=== PATIENT | female | born 1940 | race Caucasian/White ===

== ENCOUNTER → 2016-07-16 | Outpatient (CLI) | payer BC ==
[~2016-07-16] MED LIST: ACET325T95 PO; AMOX1TAB43 PO; CALC-354 PO; CLC100 PO; LUTE40CA2 PO; MELO7.5T5 PO; MULT-845 PO; POLYSOL4 OP; ULT50X PO
== END | disposition home or self-care (01) ==
LOC: C.RDSM 15:16
PROVIDERS: ATTEND Physical Medicine & Rehabilitation Sports Medicine
DX: M75.122 Complete rotator cuff tear or rupture of left shoulder, not specified as traumatic (principal); Z98.890 Other specified postprocedural states

== ENCOUNTER → 2016-10-01 | Outpatient (CLI) | payer BC | END | disposition home or self-care (01) | LOC: C.RDSM 10:30 | PROVIDERS: ATTEND Physical Medicine & Rehabilitation Sports Medicine | DX: M75.122 Complete rotator cuff tear or rupture of left shoulder, not specified as traumatic (principal); M75.41 Impingement syndrome of right shoulder; Z98.890 Other specified postprocedural states ==

== ENCOUNTER → 2016-10-23 | Outpatient (CLI) | payer BC ==
[2016-10-23 14:40] LABS: HEMATOCRIT 39.2 % (37-47); MEAN CELL VOLUME 88.3 fL (80-100); MEAN CORPUSCULAR HEMOGLOBIN 29.7 pg (25-34); MEAN CORPUSCULAR HGB CONC 33.7 g/dl (32-36); MEAN PLATELET VOLUME 8.8 fL (7.4-10.4); PLATELET COUNT 306 K/uL (130-400); RED BLOOD COUNT 4.44 M/uL (4.2-5.4); WHITE BLOOD COUNT 9.27 K/uL (4.8-10.8)
[2016-10-23 15:33] LABS: BASO % 1.3 %; BASO ABS # 0.12 K/uL (0-0.2); COMPLETE YES; ECHINOCYTES 1+; IG% 0.2 %; LYMPH % 35.9 %; LYMPH ABS # 3.33 K/uL (1.2-3.4); MONO % 9.3 %; NEUT % 50.3 %
[2016-10-23 15:55] LABS: BLOOD UREA NITROGEN 22 mg/dl (7-18); CALCIUM 8.7 mg/dl (8.5-10.1); CARBON DIOXIDE 25 mmol/L (21-32); CHLORIDE 108 mmol/L (98-107); CREATININE 0.73 mg/dl (0.60-1.20); GLUCOSE 92 mg/dl (70-99); POTASSIUM 3.6 mmol/L (3.5-5.1); SODIUM 141 mmol/L (136-145)
== END | disposition home or self-care (01) ==
LOC: C.LAB1850 14:00
PROVIDERS: ATTEND Internal Medicine
DX: R91.1 Solitary pulmonary nodule (principal)

== ENCOUNTER → 2016-10-30 | Outpatient (CLI) | payer BC ==
[~2016-10-30] MED LIST changes: +OPTIRAY 320 IV PRN
--- NOTE | 2016-10-30 13:55 | DIAGNOSTIC IMAGING REPORT ---
CT SCAN OF THE CHEST WITH IV CONTRAST CLINICAL HISTORY: Pulmonary nodule follow-up. COMPARISON STUDY: Chest CT scans dated 03/05/2016 and 11/18/2015. TECHNIQUE: Following the IV administration of 94 cc of Optiray 320, CT scan of the thorax was performed from the thoracic inlet to the upper abdomen. Images are reviewed in the axial, sagittal, and coronal planes. IV contrast was administered without complication. The examination is degraded by streak artifact from the left arm which could not be elevated above the chest. CT DOSE: 192.65 mGy.cm FINDINGS: Thyroid: Imaged portions of the thyroid gland are normal in size and attenuation. Thoracic aorta: There is atherosclerotic calcification of the thoracic aorta, which is normal in caliber and demonstrates standard 3-vessel arch anatomy. No dissection is seen. Pulmonary vasculature: The pulmonary trunk is normal in caliber. There are no filling defects identified in the central pulmonary vessels to indicate pulmonary embolus. Note that this examination was not protocoled for evaluation of the pulmonary arteries. Heart: The heart is mildly enlarged and without pericardial effusion. There are coronary artery calcifications. Lungs and pleural spaces: Emphysematous changes are noted. There is no lobar consolidation or pleural effusion. A fat-containing Bochdalek hernia is seen at the right lung base. The trachea and central airways are clear. There is a 10 mm subpleural groundglass lesion in the anterior left upper lobe seen on image #136. A small groundglass lesion in the left upper lobe as seen on image #124 and measures at least 5 mm. Both of these lesions have been present dating back to the 11/18/2015 examination and are highly concerning for low-grade neoplasm. A 2 mm groundglass nodule in the left upper lobe as seen on image #135. There are linear branching densities with surrounding nodularity seen in the right middle lobe seen on image #151 and at the right lung base on image #180. Additionally, there are tiny clustered nodules at the right apex seen on image #52. This is new from prior studies and the appearance is typical for infectious/inflammatory change. Mediastinum: There is no mediastinal lymphadenopathy. Mary Anne: Clear. Axillae: There is no axillary lymphadenopathy. Upper abdomen: Subcentimeter cortical hypodensities in the upper poles of both kidneys likely represent cysts but are too small for definitive characterization. Partially visualized upper abdominal viscera is otherwise within normal limits. Skeletal structures: The skeletal structures are osteopenic. Fusion hardware is noted in the lower cervical spine. Mild degenerative change and scoliosis is noted in the thoracic spine. No lytic or blastic bony lesions are seen. Arthritic changes present in both shoulders. There are healed right posterior rib fractures. IMPRESSION: 1. Mild cardiac enlargement and emphysema. 2. There are 2 groundglass lesions in the left upper lobe measuring up to 11 mm as detailed above. These are unchanged to minimally increased in size over studies dating back to 11/18/2015 and should be considered low-grade neoplasm until proven otherwise. Surgical consultation is advised. 3. Linear branching densities with mild surrounding nodularity are seen in the right middle lobe and in the right lower lobe, and there are also small clustered nodules at the right apex. This is new from prior studies, the appearance is typical for a mild infectious/inflammatory pneumonitis. Attention at follow-up is recommended to document resolution. 4. There is no lobar consolidation or pleural effusion. 5. There is no mediastinal or hilar lymphadenopathy. 6. Additional changes as above. Electronically signed by: Dale Washington M.D. 10/30/2016 1:53 PM Dictated Date/Time: 10/30/2016 1:37 PM
== END | disposition home or self-care (01) ==
LOC: C.CTS 13:19
PROVIDERS: ATTEND Internal Medicine
DX: R91.1 Solitary pulmonary nodule (principal); I51.7 Cardiomegaly; J43.9 Emphysema, unspecified; R91.8 Other nonspecific abnormal finding of lung field

== ENCOUNTER → 2016-11-19 | Outpatient (CLI) | payer BC ==
[~2016-11-19] MED LIST changes: -OPTIRAY 320 IV PRN
--- NOTE | 2016-11-19 11:56 | DIAGNOSTIC IMAGING REPORT ---
PET/CT HISTORY: PULMONARY NODULE TECHNIQUE: PET/CT was performed from the base of the skull through the pelvis following the intravenous administration of 14.1 mCi of F18-FDG. Non-contrast CT imaging was performed over the same range without breath-hold for attenuation correction of PET images and anatomic correlation, but not for primary interpretation as it is not of standard diagnostic quality. CT DOSE: 291.05 mGycm COMPARISON: Chest CT 10/30/2016. Cervical spine CT 04/14/2014. FINDINGS: HEAD AND NECK: There is no FDG-avid disease or significant lymphadenopathy in the imaged portions of the head and the neck. CHEST: No enlarged or FDG avid mediastinal or hilar lymph nodes. No pleural or pericardial effusions. Old right-sided rib fractures. Mild elevation of the left hemidiaphragm. Linear scarlike density at the base of the right lower lobe persists. Small branching density seen within the right lower lobe and right middle lobe do not demonstrate abnormal FDG uptake. The dominant 1 cm groundglass nodule within the left upper lobe anteriorly and the adjacent 5 mm groundglass nodule within the left upper lobe do not demonstrate abnormal FDG uptake. There is a possible 6 mm groundglass nodule within the right upper lobe on image 56 which does not demonstrate abnormal FDG uptake. ABDOMEN/PELVIS: Suboptimal evaluation of the mid abdominal and deep pelvic structures due to the metallic artifact from the lumbar spinal fusion, left hip prosthesis, and internal fixation of the right hip. No retroperitoneal or mesenteric lymphadenopathy. No pelvic lymphadenopathy. Small partially calcified fibroid within the uterus. There is 1.5 cm low density structure adjacent to the left hepatic lobe and falciform ligament which demonstrates mild FDG uptake with an SUV max of 3.4. This is stable compared to December 04, [address] There is a tiny fat-containing midline hernia adjacent to this area. MUSCULOSKELETAL: No FDG avid or destructive bone lesion identified. 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 This remains unchanged. Focus of mild FDG uptake adjacent to the lateral aspect of the left humeral head. This may correspond to rotator cuff injury or postoperative changes when compared to the prior studies. Old right pubic ring fractures. IMPRESSION: 1. No abnormal FDG uptake identified within the adjacent groundglass left upper lobe pulmonary nodules with the largest measuring 1 cm. Regardless, the CT imaging appearance alone of the dominant 1 cm lesion is highly suspicious for a primary bronchogenic malignancy such as adenocarcinoma in situ. The adjacent 5 mm groundglass nodule is indeterminate but could also represent a small adenocarcinoma in situ. 2. There is also a possible 6 mm indeterminate groundglass nodule within the right upper lobe which does not demonstrate abnormal FDG uptake. This may also represent a small adenocarcinoma in situ. 3. Small branching densities within the right middle lobe and right lower lobe remain unchanged. These do not demonstrate abnormal FDG uptake but likely represent small areas of chronic inflammatory/infectious change. 4. A 1.5 cm low-density lesion anterior to the left hepatic lobe and deep to a small fat-containing midline ventral hernia. This demonstrates mild FDG uptake. This is not significantly change compared to the 2016 chest [address]s and therefore favors a small omental infarct. 5. Focal FDG uptake lateral to the left humeral head which favors rotator cuff injury or postoperative change. 6. 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 Electronically signed by: Mario Gracia M.D. 11/19/2016 11:54 AM Dictated Date/Time: 11/19/2016 11:25 AM
== END | disposition home or self-care (01) ==
LOC: C.PET 08:17
PROVIDERS: ATTEND Surgery
DX: R91.8 Other nonspecific abnormal finding of lung field (principal); K43.9 Ventral hernia without obstruction or gangrene; R93.5 Abnormal findings on diagnostic imaging of other abdominal regions, including retroperitoneum; R93.7 Abnormal findings on diagnostic imaging of other parts of musculoskeletal system

== ENCOUNTER 2016-12-19 05:13 | Inpatient (IN) | payer BC, OTHER ==
[~2016-12-19] VITALS: Ht 165.1 cm; Wt 56.4 kg
[2016-12-19] VITALS (10 sets, daily range): BP systolic 126–166; BP diastolic 71–84; PULSE 66–100; TEMP 34.7–36.8; O2SAT 95–100; Ht 165.1 cm; Wt 56.4 kg
[~2016-12-19 05:13] MED LIST changes: -ACET325T95 PO; -AMOX1TAB43 PO; -CLC100 PO; -MULT-845 PO; -ULT50X PO
[2016-12-19] MEDS ORDERED: LACTATED RINGER'S 1000ML 1,000 ML IV SCH (06:00)
[2016-12-19] MEDS ORDERED: METHYLENE BLUE 0.5% 10 ML VIAL ONE (06:49)
[2016-12-19] MEDS ORDERED: FENTANYL CITRATE INJ 50 MCG/1 ML 2 ML VIAL ONE ×2 (06:49→08:25)
[2016-12-19] MEDS ORDERED: MIDAZOLAM HCL 1 MG/ML 2ML VIAL ONE (06:49)
[2016-12-19] MEDS ORDERED: PHENYLEPHRINE HCL INJ 10 MG/ML VIAL ONE (06:53)
[2016-12-19] MEDS ORDERED: PROPOFOL IV EMULSION 10 MG/ML 20 ML VIAL IV ONE (06:53)
[2016-12-19] MEDS ORDERED: GLYCOPYRROLATE INJ 0.2 MG/ML VIAL ONE (06:53)
[2016-12-19] MEDS ORDERED: SUCCINYLCHOLINE CHLORIDE 20 MG/ML 10 ML VIAL IV ONE (06:53)
[2016-12-19] MEDS ORDERED: LIDOCAINE HCL 2% 2 ML VIAL (20MG/ML) ONE (06:53)
[2016-12-19] MEDS ORDERED: LARYING-O-JET KIT (LTA) ONE ×2 (06:53)
[2016-12-19] MEDS ORDERED: CISATRACURIUM BESYLATE IV SOLN 2 MG/ML 10 ML VIAL ONE (06:53)
[2016-12-19] MEDS ORDERED: NEOSTIGMINE METHYLSULFATE 5 MG/5 ML SYR ONE (06:53)
--- NOTE | 2016-12-19 06:53 | History & Physical Bridge Note ---
H&P Re-Evaluation Bridge Note: I have examined the patient, reviewed the History & Physical and in the interval since the performance of the History & Physical I have noted the following changes of clinical significance: No changes noted
[2016-12-19] MEDS ORDERED: BUPIVACAINE LIPOSOME 1/3% 266 MG/20 ML VIAL INFIL ONE (07:06)
[2016-12-19] MEDS ORDERED: SODIUM CHLORIDE 0.9% PF 50 ML VIAL ONE (07:06)
[2016-12-19] MEDS ORDERED: CLINDAMYCIN PHOS 150 MG/ML 2 ML VIAL ONE (07:38)
[2016-12-19] MEDS ORDERED: EpHEDrine SULFATE 50MG/5ML SYR ONE (07:44)
--- NOTE | 2016-12-19 08:53 | DIAGNOSTIC IMAGING REPORT ---
CHEST 1 VIEW FRONTAL CLINICAL HISTORY: Navigational bronch with fiducial markers COMPARISON STUDY: Head CT 11/19/2016. FINDINGS: Total fluoroscopy time was 1 minute and 9 seconds. 2 fluoroscopic spot images of the chest were submitted. A bronchoscope is seen within the left mainstem bronchus. There is placement of a metallic fiducial marker. IMPRESSION: Fluoroscopy provided for navigational bronchoscopy. Electronically signed by: Mario Gracia M.D. 12/19/2016 8:51 AM Dictated Date/Time: 12/19/2016 8:50 AM
[2016-12-19] MEDS ORDERED: D5W AND 1/2NSS 1,000 ML IV SCH (10:35)
[2016-12-19] MEDS ORDERED: KETOROLAC TROMETHAMINE 15 MG/ML VIAL IV. SCH (10:45)
[2016-12-19] MEDS ORDERED: CLINDAMYCIN IV 900 MG in DEXTROSE 5% ADD-VANTAGE 100ML 100 ML IV SCH (10:45)
[2016-12-19] MEDS ORDERED: ONDANSETRON INJ 2 MG/ML 2 ML VIAL IV PRN ×3 (10:45→16:00)
[2016-12-19] MEDS ORDERED: NALOXONE HCL 0.4 MG/1 ML VIAL/CARP IV PRN (11:15)
[2016-12-19] MEDS ORDERED: FLUMAZENIL 0.1 MG/1 ML 10 ML VIAL IV PRN (11:15)
[2016-12-19] MEDS ORDERED: LABETALOL HCL IV 5 MG/ML 20ML IV PRN (11:15)
[2016-12-19] MEDS ORDERED: EpHEDrine SULFATE INJ 50 MG/ML AMP IV PRN (11:15)
[2016-12-19] MEDS ORDERED: ATROPINE SULFATE 0.1 MG/ML 5ML SYR IV PRN (11:15)
[2016-12-19] MEDS ORDERED: PROMETHAZINE HCL INJ 12.5 MG in SODIUM CHLORIDE 0.9% 50ML 50 ML IV PRN (11:15)
[2016-12-19] MEDS ORDERED: PIPERACILL/TAZOBAC CONSULT ACTIVE PRN (11:45)
--- NOTE | 2016-12-19 11:53 | DIAGNOSTIC IMAGING REPORT ---
CHEST ONE VIEW PORTABLE CLINICAL HISTORY: Postop left upper lobe pulmonary resection COMPARISON STUDY: 05/22/2016 FINDINGS: Postsurgical changes are present on the left. There is left-sided volume loss. There is elevation left hemidiaphragm. There is a left-sided chest tube. There is a tiny loculated left upper medial pneumothorax. There is no lobar consolidation. Increased left basal markings are felt to be atelectatic[ IMPRESSION: Postsurgical changes on the left. Suspected small loculated left upper medial pneumothorax. Left basilar atelectasis. Electronically signed by: Fer Fay M.D. 12/19/2016 11:51 AM Dictated Date/Time: 12/19/2016 11:50 AM
--- NOTE | 2016-12-19 12:08 | Anesthesiology Progress Note ---
Anesthesia Post Op Note Date & Time Dec 19, 2016 at 12:08 Vital Signs Pain Intensity: 0 Vital Signs Past 12 Hours Date Time Temp Pulse Resp B/P (MAP) Pulse Ox O2 Delivery O2 Flow Rate FiO2 12/19/16 12:05 77 16 152/64 100 Mask 3 12/19/16 12:00 68 16 142/71 100 Mask 3 12/19/16 11:50 74 16 153/70 100 Mask 3 12/19/16 11:40 36.4 79 16 159/72 100 Mask 5 12/19/16 11:30 79 16 145/78 100 Mask 5 12/19/16 11:20 81 16 157/62 100 Mask 5 12/19/16 11:10 72 16 150/65 100 Mask 10 12/19/16 11:00 75 16 148/75 100 Mask 10 12/19/16 10:53 36.5 74 14 158/75 100 Mask 10 12/19/16 05:40 36.5 66 18 149/78 95 Room Air Notes Mental Status: alert / awake / arousable, participated in evaluation Pt Amnestic to Procedure: Yes Nausea / Vomiting: adequately controlled Pain: adequately controlled Airway Patency, RR, SpO2: stable & adequate BP & HR: stable & adequate Hydration State: stable & adequate Anesthetic Complications: no major complications apparent
[2016-12-19] MEDS ORDERED: PIPERACILL/TAZOBAC IV 3.375 GM in DEXTROSE 5% 100ML IV ONE ×2 (12:30→14:00)
--- NOTE | 2016-12-19 12:34 | OPERATIVE REPORT ---
DATE OF OPERATION: 12/19/2016 PREOPERATIVE DIAGNOSIS: Ground-glass opacity left upper lobe of lung. POSTOPERATIVE DIAGNOSIS: Same. PROCEDURES: 1. Navigational bronchoscopy with marking of left upper lobe lesion using methylene blue and fiducial marker. 2. Left thoracoscopy with wedge resection under fluoroscopic guidance. 3. Thoracoscopic left upper lobectomy with lymph node dissection. SURGEON: Dr. Hernandez. BUSINESS SYSTEMS TECHNICIAN: Jacob Hua PA-C ANESTHESIA: General anesthesia endotracheal intubation with double lumen tube. SPECIFICS OF PROCEDURE: Stefanie Sands is a 76-year-old ex-smoker who was found to have ground-glass opacity in the medial left upper lobe. We had a long talk about this and I felt that trying to make a diagnosis, this was not going to be fruitful. Although she is 76 she is in excellent physical condition and quit smoking years ago. She had good lung function. We had a long talk about this and we elected to proceed with a navigational bronchoscopy and marking of this with a wedge resection frozen section, possible lobectomy. On 12/19/2016 I took the patient to the operating room and did an uncomplicated navigational bronchoscopy and I marked this area with methylene blue dye and with a fiducial marker. This was quite close to the pleura. Upon opening I could see there was methylene blue dye; however, it was not in a specific location. It was more or less confined to the medial left upper lobe. Under fluoroscopy, we could see the fiducial marker and upon pulling this up, the fiducial marker was seen on the pleural surface. This area was grasped and a generous wedge resection was made. The fiducial marker was actually removed at the time of the biopsy as it was on the surface. Dr. Emiliano Fox did a frozen section on this wedge and really did not see a mass which is not surprising given the ground-glass opacity. I had a decision to make. Her anatomy lent itself well to a lobectomy and I was not comfortable that we were going to get a diagnosis on frozen section. For this reason, I went ahead and did a left upper lobectomy. It should be noted I did a generous wedge resection and removed a good portion of her left upper lobe before the lobectomy. We lost very little blood. I biopsied level 10, 11, 12 and 5. I really did not see a level 6 node. I took down the inferior pulmonary ligament and really did not see much in the way of a level 8 or level 9 node. She tolerated it well, had no air leak at the conclusion of the case. She was extubated in the room. DESCRIPTION OF PROCEDURE: The patient brought to the operating room and laid in supine position. General anesthesia induced and endotracheal intubation was performed with a single lumen tube. A fiberoptic bronchoscopy was placed. I saw no endobronchial abnormalities. She had some mild mucus. We registered her airways and then navigated out to the mass. We could not get straight into the mass so I got within 1.5 cm and left a fiducial marker. In addition, I injected 0.5 mL of methylene blue mixed with 0.5 mL of air. We then removed the navigational probe and the fiberoptic bronchoscopy. We had no bleeding. The patient was then switched to a double lumen tube and turned into a right lateral decubitus position. The left lateral chest was prepped and draped in the usual sterile fashion. Three small incisions were made. One was made just anterior and one interspace below the tip of the scapula. A 5-mm port was placed and carbon dioxide was insufflated. This collapsed the lung very nicely when we put our 5 mm scope and we could see that there were no adhesions, she had almost complete fissures. We also saw methylene blue in the medial aspect of the left upper lobe. This was above the lingula. The area was fairly large; however, so we had fluoroscopy come and we could see the fiducial marker fluoroscopically. I grasped this area along with the forceps and the fiducial marker worked its way to the surface. I removed this with a forceps. We wedged out a large area of the medial upper lobe and delivered this off the field in an Endobag. This was done with EndoGIA staplers. Dr. Perez evaluated the area and did not see a mass per se; however, this was a ground-glass opacity. 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 For this reason and given the fact we had done a generous wedge, I went ahead and performed a left upper lobectomy. I easily dissected out the vessels and fired an EndoGIA stapler just in the superior aspect of the fissure to divide 3 vessels going to the upper lobe including the lingular branch. This dissection continued quite nicely. The fissure was complete posterior and I was able to complete it anteriorly. Upon going more posteriorly and superiorly we came upon another branch, which I fired across an EndoGIA stapler and divided. We then dissected out the branches to the superior pulmonary vein medially. I then divided this using an EndoGIA stapler. At this point, we could see there was 1 arterial branch left and I divided this with an EndoGIA stapler. This left just the bronchus. We dissected away some lymph nodes and swept them away into the specimen and fired the EndoGIA stapler, and delivered the lobe off the field. We dissected out level 5, really did not see a level 6. Dissected out level 10, 11 and 12 nodes. I took down the inferior pulmonary ligament and really did not see a level 8 or 9 node. We then irrigated out the chest. Really had no air leak. 266 mg of Exparel was mixed with 60 mL total normal saline injected from the 2nd to the 11th ribs to perform an intercostal block. A 24-[place] chest tube was then placed in the anterior thoracoscopy port and directed towards the apex. It should be noted that I made an incision in the fourth interspace just anterior to the latissimus dorsi and another into the seventh interspace anteriorly. These working ports were used to perform the dissection. I then removed the port and extended the superior incision a bit anteriorly to remove the lobe in the specimen bag. The chest tube inserted through the anterior thoracoscopy port was held in place with a heavy silk suture. The muscle layers were closed in both incisions and 4-0 Monocryl was used in running subcuticular fashion to approximate the wound edges. She tolerated it well and was extubated in the room with negligible blood loss. She had no air leak at the conclusion of the case. I attest to the content of the Intraoperative Record and any orders documented therein. Any exceptions are noted below. ANN
[2016-12-19] MEDS: ACETAMINOPHEN IV 1,000 MG in EMPTY BAG 0 ML IV SCH ×2 (13:30→22:04)
[2016-12-19] MEDS ORDERED: KETOROLAC TROMETHAMINE 30 MG/ML VIAL ONE (13:59)
[2016-12-19] MEDS ORDERED: METOCLOPRAMIDE HCL INJ 5 MG/ML 2 ML VIAL IV. SCH (14:00)
[2016-12-19] MEDS ORDERED: NURSING VERBAL MED ORDER ONE (14:00)
[2016-12-19] MEDS ORDERED: KETOROLAC TROMETHAMINE 15 MG/ML VIAL IV. PRN (14:30)
[2016-12-19] MEDS: METOCLOPRAMIDE HCL INJ 5 MG/ML 2 ML VIAL IV. SCH (16:22)
[2016-12-19] MEDS ORDERED: MoRPHine SULFATE 2 MG/ML CARP IV PRN (16:30)
[2016-12-19] MEDS ORDERED: MoRPHine SULFATE 2 MG/ML CARP ONE (16:49)
[2016-12-19] MEDS: D5W AND 1/2NSS 1,000 ML IV SCH (16:54)
[2016-12-19] MEDS: PIPERACILL/TAZOBAC IV 3.375 GM in DEXTROSE 5% 100ML 100 ML IV SCH (20:36)
[2016-12-19] MEDS: DOCUSATE SODIUM 100 MG CAP PO SCH (20:39)
[2016-12-19] MEDS ORDERED: DOCUSATE SODIUM 100 MG CAP PO SCH (21:00)
[2016-12-20] VITALS (11 sets, daily range): BP systolic 140–174; BP diastolic 65–92; PULSE 74–103; TEMP 36.4–37.2; O2SAT 92–98
[2016-12-20] MEDS: METOCLOPRAMIDE HCL INJ 5 MG/ML 2 ML VIAL IV. SCH ×2 (00:21→09:39)
[2016-12-20] MEDS: D5W AND 1/2NSS 1,000 ML IV SCH (01:23)
[2016-12-20] MEDS: PIPERACILL/TAZOBAC IV 3.375 GM in DEXTROSE 5% 100ML 100 ML IV SCH (04:19)
[2016-12-20] MEDS: ACETAMINOPHEN IV 1,000 MG in EMPTY BAG 0 ML IV SCH (05:41)
[2016-12-20 06:04] LABS: HEMATOCRIT 34.8 % (37-47); MEAN CELL VOLUME 86.4 fL (80-100); MEAN CORPUSCULAR HEMOGLOBIN 29.5 pg (25-34); MEAN CORPUSCULAR HGB CONC 34.2 g/dl (32-36); MEAN PLATELET VOLUME 8.6 fL (7.4-10.4); PLATELET COUNT 268 K/uL (130-400); RED BLOOD COUNT 4.03 M/uL (4.2-5.4); WHITE BLOOD COUNT 15.27 K/uL (4.8-10.8)
[2016-12-20 06:05] LABS: BUN/CREATININE RATIO 22.4 (10-20); CALCIUM 7.7 mg/dl (8.5-10.1); CREATININE 0.71 mg/dl (0.60-1.20); POTASSIUM 3.5 mmol/L (3.5-5.1)
[2016-12-20 06:07] LABS: PROTHROMBIN TIME (PATIENT) 10.7 SECONDS (9.0-12.0)
[2016-12-20 06:08] LABS: ALB/GLOB RATIO 1.2 (0.9-2)
--- NOTE | 2016-12-20 07:47 | Anesthesiology Progress Note ---
Anesthesia Post Op Note Date & Time Dec 20, 2016 at 07:46 Vital Signs Pain Intensity: 5.0 Vital Signs Past 12 Hours Date Time Temp Pulse Resp B/P (MAP) Pulse Ox O2 Delivery O2 Flow Rate FiO2 12/20/16 07:15 36.4 74 18 145/78 (100) 97 Room Air 12/20/16 07:08 96 Room Air 12/20/16 04:20 95 Room Air 12/20/16 04:19 36.4 88 18 140/65 (90) 95 Room Air 12/20/16 00:17 37.2 90 16 145/79 (101) 97 Room Air 12/20/16 00:15 Room Air 12/19/16 23:18 36.5 97 18 166/79 (108) 99 Room Air 12/19/16 19:50 97 Room Air Notes Mental Status: alert / awake / arousable, participated in evaluation Pt Amnestic to Procedure: Yes Nausea / Vomiting: adequately controlled Pain: adequately controlled Airway Patency, RR, SpO2: stable & adequate BP & HR: stable & adequate Hydration State: stable & adequate Anesthetic Complications: no major complications apparent Denies any PONV or other anesthetic complications.
--- NOTE | 2016-12-20 08:23 | DIAGNOSTIC IMAGING REPORT ---
CHEST ONE VIEW PORTABLE CLINICAL HISTORY: Postop left upper lobe resection COMPARISON STUDY: No previous studies for comparison. FINDINGS: Postsurgical changes are again evident on the left. Left-sided chest tube remains unchanged in position. There is an equivocal small left medial apical pneumothorax. There is no focal pulmonary consolidation. There are no pleural effusions.[ IMPRESSION: Stable postsurgical changes. No acute parenchymal consolidation. Electronically signed by: Fer Fay M.D. 12/20/2016 8:22 AM Dictated Date/Time: 12/20/2016 8:21 AM
[2016-12-20] MEDS ORDERED: ENOXAPARIN 40 MG/0.4 ML SYR SQ SCH (09:00)
[2016-12-20] MEDS: ENOXAPARIN 40 MG/0.4 ML SYR SQ SCH (09:32)
[2016-12-20] MEDS: DOCUSATE SODIUM 100 MG CAP PO SCH ×2 (09:32→20:30)
[2016-12-20] MEDS: AMOXICILLIN/CLAVULANATE TAB 875 MG TAB PO SCH ×2 (09:37→17:54)
[2016-12-20] MEDS: TRAMADOL HCL 50 MG TAB PO PRN (09:44)
[2016-12-20] MEDS: ACETAMINOPHEN 325 MG TAB PO SCH ×3 (14:04→23:30)
--- NOTE | 2016-12-20 15:14 | SURGERY PROGRESS NOTE ---
DATE: 12/20/2016 Ms. Sands was seen today on 12/20/2016, 1 day after a thoracoscopic left upper lobectomy and mediastinal lymph node sampling. She has done remarkably well. She is ambulating in the hallway and tolerating a regular diet. She is on room air. She looks quite good. Her pain control has been excellent. Her heart rate is in the 70s. She is 98% on room air. Her lungs sound quite good actually. Reviewing her x-ray, she does have some volume loss but no pleural effusion, no pneumothorax, and no infiltrates. Her labs show white count is elevated at 15,027. Hemoglobin down to 11.9. Her sodium is 136, potassium 3.5, chloride 104, bicarbonate 25, BUN and creatinine are 16 and 0.71. Her albumin 3.3. ASSESSMENT AND PLAN: Postoperative day #1 status post thoracoscopic left upper lobectomy and mediastinal lymph node sampling. We still do not have final pathology back, of course. This is pending. This mass was small and was a ground-glass opacity, which was difficult to find on frozen section. Hopefully, this will be out in the next day or two. Mrs. Sands looks quite good. She is eager to go home tomorrow. We will pull her chest tube out first thing in the morning.
[2016-12-21] MEDS: ACETAMINOPHEN 325 MG TAB PO SCH (05:48)
--- NOTE | 2016-12-21 07:01 | DIAGNOSTIC IMAGING REPORT ---
CHEST ONE VIEW PORTABLE CLINICAL HISTORY: Postop left upper lobe resection COMPARISON STUDY: No previous studies for comparison. FINDINGS: There are postsurgical changes of a left upper lobe resection. The left-sided chest tube remains unchanged. There is no focal point consolidation. No pneumothorax is visualized. There are mild basilar atelectatic changes.[ IMPRESSION: Postsurgical changes of the left. No change the position left-sided chest tube. No evidence of pneumothorax. Electronically signed by: eFr Fay M.D. 12/21/2016 7:00 AM Dictated Date/Time: 12/21/2016 6:59 AM
[2016-12-21 07:35] VITALS: BP 154/93
[2016-12-21] MEDS ORDERED: ACET325T95 PO (07:44)
[2016-12-21] MEDS ORDERED: CLC100 PO (07:44)
[2016-12-21] MEDS ORDERED: ULT50X PO (07:44)
[2016-12-21] MEDS ORDERED: AMOX1TAB43 PO (07:44)
--- NOTE | 2016-12-21 07:48 | Discharge Instructions ---
Discharge Instructions Date of Service Dec 21, 2016. Admission Reason for Admission: Left Lung Mass Discharge Discharge Diagnosis / Problem: Lung Cancer Discharge Goals Goal(s): Learn about illness Activity Recommendations Activity Limitations: as noted below Lifting Limitations: none . Instructions / Follow-Up Instructions / Follow-Up 1. You may remove dressings in 3 days and shower thereafter. No tub baths. 2. Do not fly until cleared to do so by Dr. Hernandez. 3. Office appointment with Dr. Hernandez on Saturday, December 26, 2016 @ 2:00pm. Go to the hospital 1 hour before appointment to have a chest x-ray taken. 4. [address] if taking ultram. Current Hospital Diet Patient's current hospital diet: Regular Diet Discharge Diet Recommended Diet: Regular Diet Procedures Procedures Performed: Navigational Bronchoscopy with Fiducial Markers; Left Video-assisted Thoracoscopy with Left Upper Lobe Wedge Resection; Left Upper Lobectomy with Mediastinal Lymphadenectomy Pending Studies Studies pending at discharge: no Medical Emergencies . Who to Call and When: Medical Emergencies: If at any time you feel your situation is an emergency, please call 911 immediately. . Non-Emergent Contact Non-Emergency issues call your: Surgeon Call Non-Emergent contact if: you have a fever, your pain is not controlled, wound has increased drainage, wound has increased redness . "Provider Documentation" section prepared by Avery Hua. . VTE Core Measure Inpt VTE Proph given/why not?: Enoxaparin (Lovenox)SQ
[2016-12-21 08:02] VITALS: PULSE 101; TEMP 36.8; O2SAT 94
--- NOTE | 2016-12-21 08:03 | DIAGNOSTIC IMAGING REPORT ---
CHEST ONE VIEW PORTABLE CLINICAL HISTORY: chest tube removal COMPARISON STUDY: 12/21/2016 FINDINGS: No loss sided chest tube. No significant residual postprocedural pneumothorax. All remaining components of the study remain stable. IMPRESSION: No significant pneumothorax post chest tube removal. Electronically signed by: Bashir Kruger M.D. 12/21/2016 8:01 AM Dictated Date/Time: 12/21/2016 8:01 AM
[2016-12-21 08:17] VITALS: BP 154/93; PULSE 101; TEMP 36.8; O2SAT 94
[2016-12-21] MEDS: AMOXICILLIN/CLAVULANATE TAB 875 MG TAB PO SCH (08:31)
[2016-12-21] MEDS: TRAMADOL HCL 50 MG TAB PO PRN (08:35)
[2016-12-21] MEDS: DOCUSATE SODIUM 100 MG CAP PO SCH (08:36)
[2016-12-21] MEDS: ENOXAPARIN 40 MG/0.4 ML SYR SQ SCH (08:36)
--- NOTE | 2016-12-21 10:18 | DISCHARGE SUMMARY ---
DISCHARGE DIAGNOSES: 1. Adenocarcinoma, left upper lobe of lung. 2. Questionable mild bronchitis. 3. Remote history of cigarette smoking. HOSPITAL COURSE: Stefanie Sands is a very nice 76-year-old female with a history of cigarette smoking, although she quit several years ago. She is in excellent shape for a woman her age. She was found to have a mass by Dr. Amor which was a ground-glass opacity in her medial left upper lobe which had grown. Given this, we elected to proceed with a workup. There was no evidence of metastatic disease and her lung function was adequate, so we scheduled her for navigational bronchoscopy with marking of this mass. It was in the medial left upper lobe which is a difficult area to access with the ENB. Upon bringing the patient to the operating room, we did elsa her with methylene blue dye and a fiducial marker. This was on the medial aspect of her left upper lobe. We wedged this out. I really did not see a mass, there was a ground-glass opacity. We took a generous wedge resection and I was concerned about this, so I proceeded with a left upper lobectomy with mediastinal lymph node dissection. The patient did very well with very little blood loss and extubated in the room and watched from the floor. She had some pain in the evening after surgery but this resolved by the following day. She was ambulating in the hallway, tolerating a house diet. She was on room air the night of surgery. We removed her chest tube on the morning of the 2nd postoperative day and discharged her home. She did very well with that and her x-ray looked quite good. She was discharged home on postop day 2. The patient did indeed have an adenocarcinoma which was quite small at 1 cm. Her lymph nodes and margins were negative. She is a stage IA adenocarcinoma of the lung. She will be seen in the office next week. ANN
== END 2016-12-21 09:49 | disposition home or self-care (01) | DRG 165 ==
LOC: EEVIPCON 05:13 → C.ACU 05:13 → C.3E 06:45 → ENRESERV 11:35
PROVIDERS: ADMIT Surgery; ATTEND Surgery
PROC: 0BBG4ZX Excision of Left Upper Lung Lobe, Percutaneous Endoscopic Approach, Diagnostic (ICD-10-PCS; principal; 2016-12-19 07:15)
PROC: 0BTG4ZZ Resection of Left Upper Lung Lobe, Percutaneous Endoscopic Approach (ICD-10-PCS; principal; 2016-12-19 07:15)
PROC: 07B74ZX Excision of Thorax Lymphatic, Percutaneous Endoscopic Approach, Diagnostic (ICD-10-PCS; principal; 2016-12-19 07:15)
DX: C34.12 Malignant neoplasm of upper lobe, left bronchus or lung (principal); J40 Bronchitis, not specified as acute or chronic; Z87.891 Personal history of nicotine dependence

== ENCOUNTER → 2016-12-26 | Outpatient (CLI) | payer BC ==
[~2016-12-26] MED LIST changes: +ACET325T95 PO; +AMOX1TAB43 PO; +CLC100 PO; +ULT50X PO
--- NOTE | 2016-12-26 13:27 | DIAGNOSTIC IMAGING REPORT ---
TWO VIEW CHEST CLINICAL HISTORY: Pulmonary nodule. FINDINGS: PA and lateral chest radiographs are compared to study dated 12/21/2016 and correlated with chest CT dated 10/30/2016. The heart is mildly enlarged. Chronic elevation of the left hemidiaphragm is similar to previous. Emphysema and chronic interstitial thickening are again noted. The right lung appears clear. There is a new 3 cm nodular density projecting just above the elevated left hemidiaphragm. This was not seen 5 days ago. No large pleural effusion is seen and there is no pneumothorax. The skeletal structures are osteopenic. Degenerative change and scoliosis are noted in the thoracolumbar spine. Fusion hardware is seen in the lower cervical and lumbar region.. IMPRESSION: 1. Mild cardiac enlargement, emphysema, and chronic elevation of the left hemidiaphragm. 2. There is a 3 cm nodular density projecting over the elevated left hemidiaphragm. This was not seen on the study performed 5 days previously and likely represents an infectious/inflammatory process. This could also represent postprocedural change if there has been recent instrumentation. Clinical correlation will be required and radiographic follow-up to resolution is recommended. 3. Small groundglass lesions seen on the 10/30/[address] is not apparent by x-ray. Electronically signed by: Dale Washington M.D. 12/26/2016 1:26 PM Dictated Date/Time: 12/26/2016 1:21 PM
== END | disposition home or self-care (01) ==
LOC: C.RAD1850 13:06
PROVIDERS: ATTEND Surgery
DX: R91.1 Solitary pulmonary nodule (principal); R91.8 Other nonspecific abnormal finding of lung field

== ENCOUNTER → 2017-01-01 | Outpatient (CLI) | payer BC ==
--- NOTE | 2017-01-01 09:26 | DIAGNOSTIC IMAGING REPORT ---
CHEST 2 VIEWS ROUTINE CLINICAL HISTORY: Pulmonary nodule status post thoracoscopic left upper lobectomy on December 19, 2016. COMPARISON STUDY: Chest radiograph December 26, 2016. FINDINGS: Postsurgical findings within the left hemithorax with volume loss are noted. A 2.8 cm nodular opacity within the left lower lung is unchanged since exam of December 26, 2016. There is a suspected small left pleural effusion. There is no pneumothorax. Anterior cervical spine fusion is noted. No evidence of pulmonary edema. Cardiomediastinal silhouette is normal. Lumbar spine fusion hardware is partially imaged. IMPRESSION: 1. No change in a 2.8 cm nodular left lower lung opacity since exam of December 26, 2016. This could reflect a small area of pneumonia or atelectasis. 2. Stable postoperative findings within the left hemithorax. Electronically signed by: Robinson Carrero M.D. 01/01/2017 9:25 AM Dictated Date/Time: 01/01/2017 9:18 AM
== END | disposition home or self-care (01) ==
LOC: C.RAD1850 08:44
PROVIDERS: ATTEND Physician Assistant
DX: R91.1 Solitary pulmonary nodule (principal)

== ENCOUNTER → 2017-01-28 | Outpatient (CLI) | payer BC ==
--- NOTE | 2017-01-28 12:51 | DIAGNOSTIC IMAGING REPORT ---
CHEST 2 VIEWS ROUTINE HISTORY: 76 years-old Female C34.90 Adenocarcinoma of lung COMPARISON: Chest radiograph 01/01/2017 TECHNIQUE: Frontal and lateral views of the chest FINDINGS: Previously noted 2.8 cm left basilar nodule is less apparent on today's study, only measuring 1.6 x 1.3 cm abutting the diaphragmatic surface. There is stable left hemidiaphragm elevation. Cardiac silhouette is within normal limits. There is atherosclerosis of the aorta. No pneumothorax or large pleural effusion. Fusion hardware of the lumbar and cervical spine is noted. Subacute appearing fracture of the lateral left 10th rib is noted. IMPRESSION: 1. Decreased size of the focal opacity at the left lung base, now measuring 1.6 cm, previously 2.8 cm. 2. Subacute appearing fracture of the lateral left 10th rib. The above report was generated using voice recognition software. It may contain grammatical, syntax or spelling errors. Electronically signed by: Boubacar Paredes M.D. 01/28/2017 12:49 PM Dictated Date/Time: 01/28/2017 12:47 PM
== END | disposition home or self-care (01) ==
LOC: C.RAD1850 12:20
PROVIDERS: ATTEND Physician Assistant
DX: C34.90 Malignant neoplasm of unspecified part of unspecified bronchus or lung (principal)

== ENCOUNTER → 2017-02-07 | Outpatient (CLI) | payer BC ==
--- NOTE | 2017-02-08 13:21 | MAMMOGRAPHY REPORT ---
BILATERAL DIGITAL SCREENING MAMMOGRAM TOMOSYNTHESIS WITH CAD: 02/07/2017 CLINICAL HISTORY: Routine screening. Patient has no complaints. TECHNIQUE: Breast tomosynthesis in addition to standard 2D mammography was performed. Current study was also evaluated with a Computer Aided Detection (CAD) system. COMPARISON: Comparison is made to exams dated: 02/07/2016 mammogram, 02/03/2015 mammogram, 12/09/2013 apurva mogram, 12/03/2012 mammogram, 11/05/2011 mammogram, and 10/16/2010 mammogram - [facility]. BREAST COMPOSITION: There are scattered areas of fibroglandular density in both breasts. FINDINGS: No suspicious masses, calcifications, or areas of architectural distortion are noted in ei ther breast. There has been no significant interval change compared to prior exams. IMPRESSION: ACR BI-RADS CATEGORY 1: NEGATIVE There is no mammographic evidence of malignancy. A 1 year screening mammogram is recommended. The pa tient will receive written notification of the results. Approximately 10% of breast cancers are not detected with mammography. A negative mammographic report should not delay biopsy if a clinically suggestive mass is present. Jennifer Finch M.D. ah/:02/07/2017 15:46:44 Client Care Representative: Claritza VALERA(Elaine)(M), [facility] letter sent: Normal 1/2 BI-RADS Code: ACR BI-RADS Category 1: Negative
== END | disposition home or self-care (01) ==
LOC: C.MAMM 13:20
PROVIDERS: ATTEND Internal Medicine
DX: Z12.31 Encounter for screening mammogram for malignant neoplasm of breast (principal)

== ENCOUNTER → 2017-02-25 | Outpatient (CLI) | payer BC ==
[~2017-02-25] MED LIST changes: -AMOX1TAB43 PO; -CLC100 PO; -ULT50X PO
--- NOTE | 2017-02-25 13:15 | DIAGNOSTIC IMAGING REPORT ---
LEFT RIBS UNILATERAL WITH PA CHEST HISTORY: 76 years-old Female FALL, LT SIDED RIB PAIN COMPARISON: Chest radiograph 01/28/2017 TECHNIQUE: Frontal view of the chest with 4 views of the left ribs. FINDINGS: Cardiomediastinal and hilar silhouettes are within normal limits. There is atherosclerosis of the aorta. No pneumothorax, pleural effusion or focal airspace consolidation. There is unchanged left hemidiaphragmatic elevation. The previously described 1.6 cm nodular opacity of the left lung base is not well seen on today's exam. Fusion hardware of the mid lumbar spine is noted. There are degenerative changes of the bilateral shoulders. There is a subacute to chronic appearing fracture of the lateral left 10th rib. Dilation of the lateral left ribs is limited secondary to positioning of patient's arm. No acute displaced left-sided rib fracture is identified. IMPRESSION: 1. No acute cardiopulmonary process. 2. Limited evaluation of the left ribs secondary to patient positioning. 3. Subacute to chronic appearing fracture of the lateral left 10th rib is redemonstrated without acute displaced left rib fracture identified. The above report was generated using voice recognition software. It may contain grammatical, syntax or spelling errors. Electronically signed by: Boubacar Paredes M.D. 02/25/2017 1:14 PM Dictated Date/Time: 02/25/2017 1:11 PM
--- NOTE | 2017-02-25 13:16 | DIAGNOSTIC IMAGING REPORT ---
FACIAL BONES MIN 3 VIEWS RTN CLINICAL HISTORY: Fall. Left sided facial pain. COMPARISON STUDY: PET/CT November 19, 2016. FINDINGS: No facial fracture is identified by radiography. Dental hardware is noted as well as an anterior cervical spine fusion. A metallic density along the posterior aspect of the left hemimandible is post surgical. IMPRESSION: No facial fracture identified by radiography. Electronically signed by: Robinson Carrero M.D. 02/25/2017 1:15 PM Dictated Date/Time: 02/25/2017 1:12 PM
== END | disposition home or self-care (01) ==
LOC: C.RAD1850 12:23
PROVIDERS: ATTEND Nurse Practitioner Family
DX: R51 Headache (principal); S22.32XA Fracture of one rib, left side, initial encounter for closed fracture; W18.39XA Other fall on same level, initial encounter

== ENCOUNTER → 2017-03-26 | Day surgery (SDC) | payer BC ==
[2017-02-19 11:43] VITALS: Ht 165.1 cm; Wt 53.6 kg
[~2017-03-26] VITALS: Ht 165.1 cm; Wt 53.6 kg
[~2017-03-26] MED LIST changes: +ATROPINE SULFATE 0.1 MG/ML 5ML SYR IV PRN; +BUPIVACAINE 0.5 % 5 MG/1 ML MPF 30ML VIAL ONE; +CEFAZOLIN 2000 MG/60 ML D5W IV SCH; +DEXAMETHASONE SOD INJ 4 MG/ML VIAL IV PRN; +EpHEDrine SULFATE INJ 50 MG/ML AMP IV PRN; +EpHEDrine SULFATE INJ 50 MG/ML AMP ONE; +EpINEphrine INJ 1MG/ML AMP 1 MG/ML AMP ONE; +FENTANYL CITRATE INJ 50 MCG/1 ML 2 ML VIAL IV PRN; +FENTANYL CITRATE INJ 50 MCG/1 ML 2 ML VIAL ONE; +KETOROLAC TROMETHAMINE 15 MG/ML VIAL IV. PRN; +LABETALOL HCL IV 5 MG/ML 20ML IV PRN; +LACTATED RINGER'S 1000ML 1,000 ML IV SCH; +LEVOFLOXACIN 500 MG TAB PO SCH; +LIDOCAINE HCL 1% MPF 2 ML VIAL ONE; +LIDOCAINE HCL 2% 2 ML VIAL (20MG/ML) ONE; +LIDOCAINE HCL 2% LOCAL 20 ML VIAL ONE; +METOCLOPRAMIDE HCL INJ 5 MG/ML 2 ML VIAL IV PRN; +MIDAZOLAM HCL 1 MG/ML 2ML VIAL ONE; +ONDANSETRON INJ 2 MG/ML 2 ML VIAL IV PRN; +ONDANSETRON INJ 2 MG/ML 2 ML VIAL ONE; +PHENYLEPHRINE 100MCG/ML 5ML SYR IV PRN; +PROPOFOL IV EMULSION 10 MG/ML 20 ML VIAL IV ONE; +ROPIVACAINE 0.5% 5 MG/ML 30 ML VIAL ONE; +SODIUM CHLORIDE 0.9% 1000ML 1,000 ML IV SCH
--- NOTE | 2017-03-26 06:34 | History & Physical Bridge Note ---
H&P Re-Evaluation Bridge Note: I have examined the patient, reviewed the History & Physical and in the interval since the performance of the History & Physical I have noted the following changes of clinical significance:consent obtained. No changes noted
--- NOTE | 2017-03-26 06:36 | Discharge Instructions ---
Discharge Instructions Date of Service Mar 26, 2017. Visit Reason for Visit: Right Shoulder Massive Rotator Cuff Tear Discharge Discharge Diagnosis / Problem: same Discharge Goals Goal(s): Decrease discomfort, Improve function Medications Stopped Medications Name(s): na Restart Stopped Medication(s): resume all meds as scripts direct Activity Recommendations Activity Limitations: as noted below Lifting Limitations: until after follow-up appointment Exercise/Sports Limitations: until after follow-up appointment May Resume Sexual Activity: after follow-up appointment Shower/Bathe: keep incision dry Driving or Machine Use: Anesthesia . Post Anesthesia Instructions: If you have had General Anesthesia or IV Sedation: * Do not drive today. * Resume driving when surgeon permits. * Do not make important decisions or sign legal documents today. * Call surgeon for: 1. Temperature elevations greater than 101 degrees F. 2. Uncontrollable pain. 3. Excessive bleeding. 4. Persistent nausea and vomiting. 5. Medication intolerance (nausea, vomiting or rash). * For nausea and vomiting use only clear liquids such as: tea, soda, bouillon until nausea subsides, then gradually increase diet as tolerated. * If you have any concerns or questions, call your surgeon's office. If physician is unavailable and it is an emergency, call 911 or go to the nearest emergency room. . Instructions / Follow-Up Instructions / Follow-Up The following are instructions to follow after "Shoulder Surgery" including, Acromioplasty, Rotator Cuff Repair and Instability Surgery ACTIVITY RECOMMENDATIONS: * Minimize activity after surgery. * No excessive walking, jogging, sports or laboring. * Return to activity is individualized depending on the patient and type of surgery. * Driving is not permitted until at least your first post operative visit. Please ask your doctor when it is safe to resume driving. * Expect increased discomfort with increased activity. Continue to ice the shoulder as needed. SCHOOL/WORK RECOMMENDATIONS: * You may return to sedentary work or school when you are feeling more comfortable. This is usually 3-7 days after surgery. MEDICATIONS: * You will have a prescription for pain medication and an anti-inflammatory medication after surgery. * Use the pain medication for severe pain and the anti-inflammatory for less severe pain. Once the pain medication has run out, try to use the anti-inflammatory medication. If this is not effective, contact the office for assistance. * The pain medication may cause nausea, constipation and drowsiness. You should see how they affect you before driving or similar activity. * The anti-inflammatory medication may cause stomach upset and bleeding. If this occurs let your doctor know immediately . * Take a stool softener like Colace or a laxative like Senokot to prevent constipation. DIET: * Resume previous diet. SPECIAL CARE: ICE: You have the option of an ice cooler, gel packs or ice bags. * If you have an ice cooler, refer to the instructions for that device. The ice cooler may be used continuously. * If you do not have an ice cooler, you will need to use ice bags or gel packs. Do not apply ice directly to the skin. Use a thin dressing or pranay shirt between the skin and ice bag. Apply ice for 20-30 minutes and repeat every 2-4 hours. This is especially important for the first 7-10 days after surgery. Once the pain improves, use ice as needed. ELEVATION: * You may be more comfortable sleeping in an upright position. Use the sling to elevate your arm. DRESSING: * Your dressing will be changed at your first therapy appointment approximately 4-5 days after surgery. Band-aids, tape strips or gauze may be applied. You may then change your dressing daily. * Reapply dressing followed by the EBIce cooling pad (if chosen) and then the sling. * Always wash your hands prior to touching the incision area. * Once the stitches are removed, you may leave the wound open to air or cover with gauze. * Expect some bloody drainage for the first few days after surgery. * Leave the tape strips, if present, in place for 5-7 days. * Band-aids and gauze may be changed daily. * There may be a gauze pad in your armpit area. This can be changed daily or replaced by a dry washcloth. SLING/BRACE: * You will need to use a sling or brace after surgery. The length of time the sling is used is dependent upon the type of surgery performed. * Arthroscopic Acromioplasty requires use of the sling for 2-4 weeks for comfort. * Labral procedures and Rotator Cuff Repairs require use of the sling for a longer period of time. Please check with your doctor prior to discontinuing the sling. BATHING: * You may shower or sponge-bathe immediately after surgery. The post operative shoulder dressing is mostly water-tight. You may shower right over this dressing, but be reasonably careful not to get the gauze or incision wet. * Once the dressing has been changed on the fourth or fifth day after surgery, you may shower and get the incision wet. * Wash with regular soap and water. * Do not bathe (submerge the incision), soak, swim or use a hot tub until the incision is completely healed over with normal skin and the doctor has given the OK to proceed. * There is no need to apply any ointments, powders or salves to your incision. * Do not apply alcohol or hydrogen peroxide directly to the incision. * Diluted peroxide (50:50 mixture with sterile saline) may be used to clean dried blood from around the incision area. THERAPY: * You will begin therapy four or five days after surgery. * Organized therapy with the therapist is important for the first 2-4 months after surgery depending on the type of procedure. During that time you will attend therapy 1-3 times per week. * You will also need to do daily exercises for range of motion and strength as instructed. * Patients who have a Capsular Shift Procedure will need to abide by temporary range of motion limitations. * Patients having Rotator Cuff Surgery are not allowed to actively lift their arms until 4-6 weeks after surgery. * Please check with your doctor regarding appropriate motion restrictions. FOLLOW UP VISIT: * If not already scheduled, please call the office at to schedule a follow-up appointment for 10 days after surgery and monthly thereafter. Diet Recommendations Recommended Home Diet: resume previous diet Procedures Procedures Performed: reconstruction massive cuff tear Pending Studies Studies pending at discharge: no Medical Emergencies . Who to Call and When: Medical Emergencies: If at any time you feel your situation is an emergency, please call 911 immediately. . Non-Emergent Contact Non-Emergency issues call your: Specialist Call Non-Emergent contact if: temperature is above 101.5 . . "Provider Documentation" section prepared by Parveen Sterling. .
--- NOTE | 2017-03-26 08:19 | [facility] Post Operative Brief Note ---
Immediate Operative Summary Operative Date Mar 26, 2017. Pre-Operative Diagnosis Right Shoulder Massive Rotator Cuff Tear Post-Operative Diagnosis Same Procedure(s) Performed Right Shoulder Arthroscopic Versus Open Rotator Cuff Repair Versus Capsular Reconstruction, Left Shoulder Possible Removal Of [place] Stitch Surgeon Dr Sterling Kindergarten Assistant Surgeon(s) Cathy Malone PA-C Estimated Blood Loss Trace Findings massive cuff tear Fluids (cc crystalloids) 650cc Specimens None Drains none Anesthesia LMA/block Complication(s) None Disposition Recovery Room / PACU
[2017-03-26 10:10] VITALS: BP 136/80; PULSE 70; O2SAT 97
--- NOTE | 2017-03-26 10:18 | OPERATIVE REPORT ---
DATE OF OPERATION: 03/26/2017 SURGEON: Parveen Sterling MD SEWER BRICKLAYER: Kedar. SECOND SEWER BRICKLAYER: Brody Perry PA-C PREOPERATIVE DIAGNOSIS: Massive rotator cuff tear, right shoulder. POSTOPERATIVE DIAGNOSIS: Same. OPERATION PERFORMED: 1. Exam under anesthesia. 2. Diagnostic arthroscopy. 3. Arthroscopic double row technique massive rotator cuff repair. PERIOPERATIVE SITUATION: Medically cleared female with intractable shoulder pain. Physical exam, x-ray, and MRI consistent with a massive cuff tear. At this point in time proceed with surgical treatment. DESCRIPTION OF PROCEDURE: The patient appropriately identified, site verified, consent verified, 2 grams of Ancef confirmed as being given. The right upper extremity was prepped and draped in usual routine fashion. Arthroscopy commenced through a posterior portal made 2 cm medial and inferior to posterolateral tip of the acromion joint entered without difficulty and anterior portal made just off the edge of the AC joint. The joint was debrided. There was a grade 4 change on the anterior-superior glenoid. The humeral head was in good shape with some grade 2 changes only. The biceps anchor was solid. The subscap was intact. There was a large retracted cuff tear involving the infraspinatus and supraspinatus. It was quite mobile. The area was then debrided, all bone debrided to bleeding base without removing the cortex and then a double row technique applied with percutaneous insertion of the medial anchors. The sutures were then retrieved through there and left out. Once this was all cleaned up, the sutures were then placed through the cannula and passed through the tissue and then back out the skin areas. Then once everything was placed laterally and an anchor posteriorly placed, one suture from each limb placed in the rotator cuff pulled into position and then the anterior cuff pulled in position. This covered the insertion nicely. However, there was an area anteriorly were convergence sutures could be applied from the subscap to the supraspinatus. This was applied using the scorpion with sliding knot technique and then 2 half hitches to lock it and excellent repair was obtained there. The arm was then ranged and there was good rotator cuff attachment to the humerus. The procedure was then terminated on this side and the area closed with 3-0 nylon sutures, dressed appropriately. SUMMARY OF IMPLANTS: Arthrex anchor 4.75 x2 and 5.5 x2, multiple stitches to close the rotator convergence anteriorly. ESTIMATED BLOOD LOSS: Trace. CRYSTALLOID: 650 mL. DESCRIPTION OF PROCEDURE: Left shoulder was then prepared for the area of the subcutaneous anchor pullout. This area was then anesthetized with some Marcaine and then incised and the anchor removed without difficulty. It was subcutaneous. ESTIMATED BLOOD LOSS: There was trace. I attest to the content of the Intraoperative Record and any orders documented therein. Any exception s are noted below.
--- NOTE | 2017-03-26 10:18 | Anesthesia Progress Nt - [facility] ---
Anesthesia Post Op Note Date & Time Mar 26, 2017 at 10:18 Vital Signs Pain Intensity: 0 Vital Signs Past 12 Hours Date Time Temp Pulse Resp B/P (MAP) Pulse Ox O2 Delivery O2 Flow Rate FiO2 03/26/17 09:36 36.7 77 16 175/89 (117) 95 Room Air 75 03/26/17 09:34 36.4 03/26/17 09:32 81 16 03/26/17 09:32 81 16 94 03/26/17 09:31 169/89 (123) 03/26/17 09:27 82 20 95 03/26/17 09:27 83 20 03/26/17 09:26 176/89 (117) 03/26/17 09:22 86 22 95 03/26/17 09:22 85 22 03/26/17 09:22 Room Air 03/26/17 09:21 163/88 (110) 03/26/17 09:17 78 22 99 03/26/17 09:17 77 22 03/26/17 09:16 166/80 (116) 03/26/17 09:12 80 17 03/26/17 09:12 80 17 99 03/26/17 09:11 176/81 (107) 03/26/17 09:07 77 18 99 03/26/17 09:07 78 18 03/26/17 09:06 167/82 (107) 03/26/17 09:02 78 18 99 03/26/17 09:02 78 18 03/26/17 09:01 161/93 (106) 03/26/17 08:57 81 19 03/26/17 08:57 80 19 99 03/26/17 08:56 173/80 (107) 03/26/17 08:52 71 13 03/26/17 08:52 72 13 98 03/26/17 08:51 176/87 (105) 03/26/17 08:47 72 19 99 03/26/17 08:47 72 19 03/26/17 08:45 175/83 (119) 03/26/17 08:42 36.1 72 16 175/83 99 Diffusion Mask 5 03/26/17 07:04 9 03/26/17 07:01 125/68 03/26/17 06:59 63 23 100 03/26/17 06:59 62 03/26/17 06:56 176/81 03/26/17 06:54 62 31 99 03/26/17 06:54 62 03/26/17 06:53 165/79 03/26/17 06:49 0 03/26/17 06:44 0 03/26/17 06:39 0 03/26/17 06:37 36.7 65 16 160/83 (108) 96 Room Air 03/26/17 06:34 0 Notes Mental Status: alert / awake / arousable, participated in evaluation Pt Amnestic to Procedure: Yes Nausea / Vomiting: adequately controlled Pain: adequately controlled Airway Patency, RR, SpO2: stable & adequate BP & HR: stable & adequate Hydration State: stable & adequate Anesthetic Complications: no major complications apparent
--- NOTE | 2017-03-26 13:32 | [facility] Operative Report ---
Operative Report Operative Date Mar 26, 2017. Pre-Operative Diagnosis Right Shoulder Massive Rotator Cuff Tear left shoulder retained subcutaneous stitch Post-Operative Diagnosis Right and left shoulders -Same Procedure(s) Performed Right Shoulder Exam under Anesthesia, Arthroscopy, Massive Rotator Cuff Repair (Double Row Technique), Left Shoulder Removal Of [place] Stitch Surgeon Dr Sterling Cupola Melting Supervisor Surgeon(s) Cathy Malone PA-C Estimated Blood Loss Trace Findings See operative report Fluids (cc crystalloids) 650cc Specimens None Drains none Complication(s) None Disposition Recovery Room / PACU Indications This 76-year-old white female presented to the office with complaints of intractable right shoulder pain. She elected to proceed with surgical intervention after being educated about potential risks and outcomes. She had tried conservative care measures without success. Preoperative imaging had been obtained. Description of Procedure Patient was administered a regional block and then taken to the operating room where she was given general anesthesia. She was prepped and draped in usual sterile fashion. Please see Dr. Sterling's operative report for specifics of the procedure. I was present for the entire case from initial patient positioning through final wound closure. Assistance was provided in patient positioning, arthroscopy, tissue traction, hemostasis, hardware placement, and final wound closure. Patient was taken to the recovery room in satisfactory condition. I attest to the content of the Intraoperative Record and any orders documented therein. Any exceptions are noted below.
== END | disposition home or self-care (01) ==
LOC: X.SURG 06:15
PROVIDERS: ATTEND Physical Medicine & Rehabilitation Sports Medicine
DX: M75.101 Unspecified rotator cuff tear or rupture of right shoulder, not specified as traumatic (principal); M48.02 Spinal stenosis, cervical region; M19.90 Unspecified osteoarthritis, unspecified site; Z79.899 Other long term (current) drug therapy

== ENCOUNTER → 2017-06-19 | Outpatient (CLI) | payer BC ==
[~2017-06-19] MED LIST changes: -ATROPINE SULFATE 0.1 MG/ML 5ML SYR IV PRN; -BUPIVACAINE 0.5 % 5 MG/1 ML MPF 30ML VIAL ONE; -CEFAZOLIN 2000 MG/60 ML D5W IV SCH; -DEXAMETHASONE SOD INJ 4 MG/ML VIAL IV PRN; -EpHEDrine SULFATE INJ 50 MG/ML AMP IV PRN; -EpHEDrine SULFATE INJ 50 MG/ML AMP ONE; -EpINEphrine INJ 1MG/ML AMP 1 MG/ML AMP ONE; -FENTANYL CITRATE INJ 50 MCG/1 ML 2 ML VIAL IV PRN; -FENTANYL CITRATE INJ 50 MCG/1 ML 2 ML VIAL ONE; -KETOROLAC TROMETHAMINE 15 MG/ML VIAL IV. PRN; -LABETALOL HCL IV 5 MG/ML 20ML IV PRN; -LACTATED RINGER'S 1000ML 1,000 ML IV SCH; -LEVOFLOXACIN 500 MG TAB PO SCH; -LIDOCAINE HCL 1% MPF 2 ML VIAL ONE; -LIDOCAINE HCL 2% 2 ML VIAL (20MG/ML) ONE; -LIDOCAINE HCL 2% LOCAL 20 ML VIAL ONE; -METOCLOPRAMIDE HCL INJ 5 MG/ML 2 ML VIAL IV PRN; -MIDAZOLAM HCL 1 MG/ML 2ML VIAL ONE; -ONDANSETRON INJ 2 MG/ML 2 ML VIAL IV PRN; -ONDANSETRON INJ 2 MG/ML 2 ML VIAL ONE; -PHENYLEPHRINE 100MCG/ML 5ML SYR IV PRN; -PROPOFOL IV EMULSION 10 MG/ML 20 ML VIAL IV ONE; -ROPIVACAINE 0.5% 5 MG/ML 30 ML VIAL ONE; -SODIUM CHLORIDE 0.9% 1000ML 1,000 ML IV SCH
--- NOTE | 2017-06-19 17:47 | DIAGNOSTIC IMAGING REPORT ---
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 COMPARISON STUDY: Chest CT October 30, 2016, PET/CT November 19, 2016 and chest radiograph January 28, 2017. CT DOSE: 215.31 mGy.cm TECHNIQUE: Axial images of the chest were obtained without IV contrast. Images were reviewed in the axial, sagittal, and coronal planes. IV contrast was not administered for this examination. A dose lowering technique was utilized adhering to the principles of ALARA. FINDINGS: No enlarged axillary, mediastinal or hilar lymph nodes are present. The size of the heart is normal. There is no pericardial effusion. No pneumothorax or pleural effusion is present. There are expected findings following left upper lobectomy. A 6 mm groundglass right upper lobe nodule shown on image [address] of October 30, 2016. A 1.6 cm tubular abnormality within the right lower lobe shown on image 161 of 301 has slightly increased in size. The appearance favors mucoid impaction. Minimal tree-in-bud nodules within the right lower lobe are noted. A few indeterminate but low suspicion left lower lobe nodules are noted, including a 3 mm nodule shown image 62 and a 4 mm left lower lung nodule shown image 65. No suspicious osseous lesions are present. A few intermediate attenuation lesions arising from the upper pole of the right kidney are suboptimally assessed on this unenhanced exam but likely reflecting hyperdense cysts when correlating with prior contrast enhanced CT. IMPRESSION: 1. Expected findings following left upper lobectomy. No thoracic lymphadenopathy. 2. No change in a 6 mm groundglass right upper lobe nodule. This is indeterminate and can be assessed on subsequent exams to exclude a low-grade neoplasm. 3. Mild emphysema. 4. Slight increase in a tubular 1.6 cm right lower lobe abnormality. The appearance favors mucoid impaction. The appearance not typical for neoplasm although a neoplasm is within the differential. This can be assessed on subsequent exam. 5. A few additional low suspicion tiny pulmonary nodules within the left lower lobe. Correlation with prior exam is difficult given interval surgery but these are likely benign and can be assessed on subsequent studies. Electronically signed by: Robinson Carrero M.D. 06/19/2017 5:46 PM Dictated Date/Time: 06/19/2017 4:16 PM
== END | disposition home or self-care (01) ==
LOC: C.CTS 16:00
PROVIDERS: ATTEND Surgery
DX: C34.90 Malignant neoplasm of unspecified part of unspecified bronchus or lung (principal)

== ENCOUNTER → 2017-11-12 | Outpatient (CLI) | payer BC ==
[~2017-11-12] MED LIST changes: -ACET325T95 PO; +TYLOTC325 PO
--- NOTE | 2017-11-12 11:51 | DIAGNOSTIC IMAGING REPORT ---
(CHEST) THORAX WITHOUT CLINICAL HISTORY: 77 years-old Female presenting with C34.90 Adenocarcinoma of [id number]. TECHNIQUE: Multidetector CT imaging of the chest was performed without the use of intravenous contrast. IV contrast: None. A dose lowering technique was used consistent with the principles of ALARA (as low as reasonably achievable). COMPARISON: 06/19/2017. CT DOSE (mGy.cm): The estimated cumulative dose is 197.63 mGy.cm. 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 On soft tissue windows, normal thyroid and thoracic inlet. No axillary, supraclavicular, or mediastinal lymphadenopathy. Evaluation of the kathleen limited without intravenous contrast. Atherosclerosis of the aorta. Normal heart size. Coronary artery calcification. No pericardial or pleural effusion. Elevation of the left hemidiaphragm, unchanged. Normal liver density. On lung windows, redemonstration of the tubular branching density in the posterior right lower lobe (series 4 image 165). This is unchanged in size and appearance and follows the bronchovascular bundle. Postsurgical changes of left upper lobectomy. Hyperinflation of the left lower lobe. Trace apical emphysematous changes most evident on the right. Multiple punctate nodules at the right apex including the previously noted vague groundglass nodular region (series 4 image 56). Similar findings are noted in the superior segment of the bilateral lower lobes. The vast majority of these nodules are subsolid. Bandlike opacity at the right lower lobe likely atelectasis or scarring. No significant bronchial wall thickening. Postsurgical changes of the left upper lobe bronchus. Central airways patent. On bone windows, degenerative changes of the spine. Anterior cervical fusion hardware partially visualized. Degenerative changes of the bilateral glenohumeral joints, right greater than left. Multiple old rib fractures evident bilaterally. IMPRESSION: 1. Postsurgical changes of left upper lobectomy. No evidence of recurrent disease or lymphadenopathy allowing for noncontrast technique. 2. Trace emphysema. 3. Redemonstration of numerous punctate nodules in the right apex and superior segments of the bilateral lower lobes. Findings are most suggestive of respiratory bronchiolitis. As several of the punctate nodules are solid, this may represent a mixture of respiratory bronchiolitis and pulmonary Langerhans cell histiocytosis (i.e. smoking related lung injury). 4. Tubular branching nodular opacity in the right lower lobe is unchanged and most suggestive of chronic mucoid impaction. Electronically signed by: Emiliano Lee M.D. 11/12/2017 11:50 AM Dictated Date/Time: 11/12/2017 11:36 AM
== END | disposition home or self-care (01) ==
LOC: C.CTS 11:07
PROVIDERS: ATTEND Internal Medicine
DX: C34.90 Malignant neoplasm of unspecified part of unspecified bronchus or lung (principal); R91.8 Other nonspecific abnormal finding of lung field

== ENCOUNTER → 2018-02-17 | Outpatient (CLI) | payer BC ==
--- NOTE | 2018-02-18 14:58 | MAMMOGRAPHY REPORT ---
BILATERAL DIGITAL SCREENING MAMMOGRAM TOMOSYNTHESIS WITH CAD: 02/17/2018 CLINICAL HISTORY: Routine screening. Patient has no complaints. TECHNIQUE: The study was acquired using full field digital technology and interpreted from soft copy. Breast tomosynthesis in addition to standard 2D mammography was performed. Current study was also ev aluated with a Computer Aided Detection (CAD) system. COMPARISON: Comparison is made to exams dated: 02/07/2017 mammogram, 02/07/2016 mammogram, 02/03/2015 apurva mogram, 12/09/2013 mammogram, 12/03/2012 mammogram, and 10/16/2010 mammogram - [facility] er. BREAST COMPOSITION: There are scattered areas of fibroglandular density in both breasts. FINDINGS: There are mild vascular calcifications in the breasts. A few stable benign-appearing calci fications. Stable asymmetry in the superior left breast on the MLO view. No suspicious mass, yuri ectural distortion or cluster of microcalcifications is seen. IMPRESSION: ACR BI-RADS CATEGORY 1: NEGATIVE There is no mammographic evidence of malignancy. A 1 year screening mammogram is recommended.( 019) The patient will receive written notification of the results. Some breast cancers are not detected with mammography. A negative mammographic report should not eleazar y biopsy if a clinically suggestive mass is present. Elizabeth Mcintyre M.D. ay/:02/17/2018 16:53:15 Screw Down: RT Bethany(Elaine)(M), [facility] letter sent: Normal 1/2 BI-RADS Code: ACR BI-RADS Category 1: Negative
== END | disposition home or self-care (01) ==
LOC: C.MAMM 11:33
PROVIDERS: ATTEND Internal Medicine
DX: Z12.31 Encounter for screening mammogram for malignant neoplasm of breast (principal)

== ENCOUNTER → 2018-02-25 | Outpatient (CLI) | payer BC | END | disposition home or self-care (01) | LOC: C.RDSM 13:42 | PROVIDERS: ATTEND Physical Medicine & Rehabilitation Sports Medicine | DX: M25.512 Pain in left shoulder (principal); M25.511 Pain in right shoulder ==

== ENCOUNTER 2019-06-10 04:52 | Inpatient (IN) ==
--- NOTE | 2019-05-29 13:26 | PAT Medication Instructions ---
Medication Instructions Date of Service May 29, 2019 Home Medications meloxicam 15 mg tablet 15 mg PO QAM lutein 20 mg PO HS [Systane (PF)] 1 drp OPHTHALMIC (EYE) BID PRN ASK your surgeon for instructions meloxicam 15 mg tablet 15 mg PO QAM STOP taking 2 weeks before surgery If surgery is within 2 weeks, stop taking as soon as possible. lutein 20 mg PO HS Take morning of surgery OTHERWISE NOTHING TO EAT OR DRINK AFTER MIDNIGHT: [Systane (PF)] 1 drp OPHTHALMIC (EYE) BID PRN (if needed) Other Notes If you have any questions please call us at [phone] or [phone] or [phone] or [phone]
--- NOTE | 2019-06-01 09:31 | Anesthesiology Consultation ---
Date of Service June 01, 2019 Assessment & Plan (1) Encounter for pre-operative examination: PCP CLEARANCE 05/12 = "She has current symptoms of a sinusitis. This will need to be cleared up before she goes through her surgery. To that end, I suggested that she try intranasal saline 2 sniff see each nostril 3 to 4 times a day and gargling with salt water when she gets up in the morning and before bed at night. Additionally, will start her on doxycycline 100 milligrams b.i.d. for 3 days in daily for 4 days. " PCP Addendum 06/02/19 = "... She reports that she is completely recovered from her episode of sinusitis. She has no cardiovascular history. She recently went through significant surgery with her shoulder replacement. Therefore I do not think any additional studies are warranted. No contraindication to necessary surgery." POSSIBLE DIFFICULT AIRWAY -- H/O GLIDESCOPE WITH 2014 ACDF. Chart Review Chart Review: Acceptable Risk for Surgery and Patient seen in Pre Admission Testing Consults Requested none Teaching & Discussion Instructed NPO after midnight before surgery, except medications with 15 cc of water. Medication instructions provided according to the PAT guidelines. History Surgery Operation Date: 04/29/19 09:20 Proposed Procedures p Left Total Knee Arthroplasty - Parveen Sterling MD Operation Date: 06/10/19 07:00 Proposed Procedures p Left Total Knee Arthroplasty; Right Thumb Ganglion Cyst Aspiration and Corisone Injection - Parveen Sterling MD Height/Weight Height: 5 ft 4 in Weight: 53.1 kg Allergies Allergy/AdvReac Type Severity Reaction Status Date / Time codeine AdvReac Mild NAUSEA/VOMI Verified 06/10/19 05:32 T morphine AdvReac Mild NAUSEA/VOMI Verified 06/10/19 05:32 T Medications Home Medications Medication Instructions Recorded Confirmed Last Taken meloxicam 15 mg tablet 15 mg PO QAM tab 03/28/19 06/10/19 06/03/19 lutein 20 mg PO HS 05/21/19 06/10/19 06/03/19 peg 400-propylene glycol (PF) 1 drp OPHTHALMIC (EYE) BID PRN 05/21/19 06/10/19 06/09/19 [Systane (PF)] Active Medications Generic Name Dose Route Start Last Admin Trade Name Freq PRN Reason Stop Dose Admin Lactated Ringer's 1,000 mls @ 15 mls/hr 06/10/19 06:00 06/10/19 07:02 Lr IV 06/10/19 18:00 Infused .Q24H SHADY Infusion Cefazolin Sodium 2,000 mg in 15 mls @ 3.75 mls/min 06/10/19 06:00 06/10/19 07:02 Ancef 2000mg IV 06/10/19 18:00 3.75 mls/min PREOP SHADY Administration Protocol Past Medical History Medical History Adenocarcinoma of lung (Chronic) Per chest CT 12/08/18: "No evidence for recurrent malignancy status post left upper lobectomy." Degenerative disc disease Dry eye syndrome Osteoarthritis (Chronic) Psoriasis (Chronic) Pulmonary nodule (Chronic) Exercise / Class Metabolic Activity II 4-5 Yardwork/Stairs/Walk up hill (Denies CP or SOB with stairs, does daily) Past Family History Family History Other No significant family history Past Surgical History Surgical History Family history of reaction to anesthesia MOTHER, SISTER AND DAUGHTER NAUSEA Fusion of spine 4 LUMBAR FUSIONS (TOTAL 3-4 BACK SURGERIES) H/O cervical spine surgery GOOD ROM H/O foot surgery LEFT H/O wrist surgery RT History of arthroscopy RT KNEE History of bilateral tubal ligation History of cataract surgery RT/LEFT History of colonoscopy History of dilatation and curettage History of herniorrhaphy History of lobectomy of lung UPPER LEFT LOBE History of shoulder surgery RT REVERSAL TSA History of tooth extraction Nausea and vomiting after administration of anesthetic agent S/P hip replacement (Resolved) Past Anesthesia History No Hx of Anesthesia Complications (other than PONV), Difficult Airway (POSSIBLY -- GLIDESCOPE #3 WITH 2014 ACDF) and No Family Hx of Anesthesia Complications History of PONV No Hx of Motion Sickness and History of PONV Social History Smoking Status: Former smoker tobacco type: cigarettes Smoking cigarettes per day: 20 Do You Dip or Chew Tobacco: No Smoking End Date: ? DATE "ITS BEEN TOO LONG" Hx Alcohol Use: No Hx Substance Use: No substance use type: does not use Review of Systems Pt denies any recent chest pain, shortness of breath, palpitations, cough, fever or URI. Physical Exam Vital Signs Last Vital Signs Temp 37 C 06/10/19 05:20 Pulse 75 06/10/19 05:20 Resp 20 06/10/19 05:20 BP 123/73 06/10/19 05:20 Pulse Ox 96 06/10/19 05:20 BP: 128/74 P: 58bpm SPO2: 99% RA T: 97.8 F R: 16 ENMT Mouth: + dental restorations (many implants); no chipped teeth and no loose teeth Thyromental Distance: > or= 3.5 Finger Breadths (3.5) Mallampati Class: II Neck normal visual inspection; neck extension not limited Respiratory normal respiratory effort Auscultation: lungs clear to auscultation bilaterally and + diminished lung sounds (L upper lobe region (s/p DIEGO lobectomy)) Cardiovascular Rate/Rhythm: regular rate and regular rhythm Heart Sounds: no murmur Vessels: no carotid bruit Extremities: no edema Testing Laboratory Results 06/01/19 09:50 06/01/19 09:50 PT 9.8 Seconds (9.0-12.0) 06/01/19 09:50 INR 1.0 (0.9-1.1) 06/01/19 09:50 APTT 26.5 Seconds (21.0-31.0) 06/01/19 09:50 Urine Color Yellow 06/01/19 09:50 Urine Appearance Clear (Clear) 06/01/19 09:50 Urine pH 5.0 (4.5-7.5) 06/01/19 09:50 Ur Specific [place] 1.024 (1.000-1.030) 06/01/19 09:50 Urine Protein Negative (Negative) 06/01/19 09:50 Urine Glucose (UA) Negative (Negative) 06/01/19 09:50 Urine Ketones Negative (Negative) 06/01/19 09:50 Urine Nitrite Negative (Negative) 06/01/19 09:50 Ur Leukocyte Esterase Negative (Negative) 06/01/19 09:50 Blood Type A Positive 06/10/19 05:12 Antibody Screen POSITIVE A 06/10/19 05:12 Per Blood Bank no further testing needed for + AB Electrocardiogram Date: 06/01/19 Findings: + SB @ (58bpm) Other Testing Chest CT 12/08/18 IMPRESSION: 1. No evidence for recurrent malignancy status post left upper lobectomy. Stable postoperative findings. 2. No change in a few tiny pulmonary nodules and a 6 mm groundglass and cystic focus within the right upper lobe. These are probably benign and can be assessed on subsequent exams. 3. Incompletely healed left scapular fracture.
[2019-06-01 10:36] LABS: Appearance Urine Clear (Clear); Bilirubin Urine Negative (Negative); Blood Urine Negative (Negative); Color Urine Yellow; Glucose Urine UA Negative (Negative); Ketones Urine Negative (Negative); Leukocyte Esterase Urine Negative (Negative); Nitrite Urine Negative (Negative); Protein Urine Negative (Negative); Specific Gravity Urine 1.024 (1.000-1.030); Urobilinogen Urine Negative (Negative)
[2019-06-01 10:38] LABS: Basophils # (auto) 0.09 K/uL (0-0.2); Basophils % (auto) 1.1 %; Eosinophils # (auto) 0.21 K/uL (0-0.5); Eosinophils % (auto) 2.6 %; Hematocrit (blood only) 39.2 % (37-47); Hemoglobin 12.9 g/dL (12.0-16.0); Immature Granulocytes # (auto) 0.02 K/uL (0.00-0.02); Immature Granulocytes % (auto) 0.3 %; Lymphocytes # (auto) 2.13 K/uL (1.2-3.4); Lymphocytes % (auto) 26.6 %; Mean Corpuscular Hemoglobin 27.8 pg (25-34); Mean Corpuscular Hgb Conc 32.9 g/dL (32-36); Mean Corpuscular Volume 84.5 fL (80-100); Mean Platelet Volume 9.2 fL (7.4-10.4); Monocytes # (auto) 0.59 K/uL (0.11-0.59); Monocytes % (auto) 7.4 %; Neutrophils # (auto) 4.96 K/uL (1.4-6.5); Platelet Count 264 K/uL (130-400); RDW Coefficient of Variation 14.6 % (11.5-14.5); RDW Standard Deviation 45.5 fL (36.4-46.3); Red Blood Count 4.64 M/uL (4.2-5.4)
[2019-06-01 10:48] LABS: BUN Creatinine Ratio 49.6 (10-20); Calcium 9.5 mg/dl (8.5-10.1); Creatinine Clr Calc Pharmacy 63.7 ml/min; Est GFR (African American) 100.5; Est GFR (Non-African American) 86.7; Potassium 4.1 mmol/L (3.5-5.1)
[2019-06-01 11:03] LABS: Partial Thromboplastin Time 26.5 Seconds (21.0-31.0); Prothrombin Time 9.8 Seconds (9.0-12.0)
--- NOTE | 2019-06-09 17:00 | History and Physical Report ---
DATE OF ADMISSION: 06/10/2019 PREOPERATIVE HISTORY AND PHYSICAL PATIENT OF: Parveen Sterling MD. CHIEF COMPLAINT: Left knee pain and instability. SECONDARY COMPLAINT: Right thumb cyst. HISTORY OF PRESENT ILLNESS: This 78-year-old white female presents to the office with complaints of left knee pain and a sense of buckling or giving way since September of this year. No specific injury. She feels as though the knee gives out on her. She is worried she is going to fall. She has a known history of osteoarthritis and psoriatic arthritis. She has tried physical therapy as well as numerous cortisone injections without lasting relief. She elects to proceed with surgical intervention in hopes of alleviating her discomfort. Her left knee is affecting her ADLs. Pain is worse with weightbearing. No numbness or tingling. Preoperative imaging has been obtained. The right thumb has a visible cyst that is painful. She has tried conservative care measures without improvement. She is hoping for aspiration for decompression. PAST MEDICAL HISTORY: Significant for osteoarthritis, psoriatic arthritis, neck pain, back pain, previous lung cancer. ALLERGIES: KNOWN ALLERGY TO CODEINE AND MORPHINE, WHICH CAUSED NAUSEA AND VOMITING. CURRENT MEDICATIONS: Caltrate 600 mg p.o. b.i.d., clobetasol 0.05% topical cream b.i.d., Lutein daily, meloxicam 15 mg p.o. daily p.r.n., Systane eye drops daily, Tylenol 500 mg p.o. q.6 hours p.r.n. FAMILY HISTORY: Significant for arthritis, otherwise unremarkable. Her mother lived to age 92. PAST SURGICAL HISTORY: Left lung upper lobe resection in 01/2017, shoulder rotator cuff repair in 2017, neck surgery, lumbar back surgery, shoulder replacement in 2019, foot surgery unknown date, hip fracture ORIF. SOCIAL HISTORY: The patient is . No tobacco use. No ETOH use. Former smoker. REVIEW OF SYSTEMS: A total of 10 systems are reviewed and are significant only for the above-stated conditions. PHYSICAL EXAMINATION: GENERAL: A well-developed, well-nourished elderly white female in no acute distress. Sitting in a chair. Alert and oriented. SKIN: Warm and dry with good turgor. No rashes or lesions. No ecchymosis or erythema. She does have a fairly large cyst present on the right thumb basal joint. HEENT: Normocephalic, atraumatic. Eyes PERRLA, EOMI. Nares patent bilaterally without turbinate enlargement. Oropharynx without erythema or exudate. No lesions noted. Uvula midline. Oral mucosa moist. Partial denture plate and fillings are noted. HEART: RRR. No MGR. LUNGS: Clear to auscultation bilaterally. No crackles, rhonchi or wheezing. Good air movement. ABDOMEN: Bowel sounds present x4, soft, nontender. No organomegaly. No masses. MUSCULOSKELETAL: Left knee evaluation reveals a mild intra-articular effusion. No redness or warmth. She lacks approximately 10 degrees of terminal extension. Flexion to greater than 110 degrees. Strength is 5/5 with fair quad tone. There is focal discomfort with palpation over the medial and lateral joint lines. Mild peripatellar discomfort with palpation today as well. Valgus positioning of the knee. Ambulatory with an antalgic gait. Right thumb reveals a cyst present over the basal joint dorsally, approximately 1 cm in diameter, more pronounced with flexion. She has obvious arthritic changes to multiple digits of her right hand. Thumb circumduction and opposition are intact. She has discomfort with palpation over the cyst. NEUROLOGIC: Cranial nerves II through XII are intact. Gross sensation is intact across the left leg by soft touch. VASCULAR: Peripheral pulses are 2+. DATA: Radiographic imaging previously obtained in November shows end-stage DJD of the left knee. Valgus positioning. Periarticular osteophytes, subchondral sclerosis, and joint space narrowing are all present. IMPRESSION: Left knee end-stage degenerative joint disease. Right thumb dorsal cyst. PLAN: Postoperative prescription for Coumadin and Percocet will be provided at discharge from the hospital. Anticipate discharge to home with home health services. Postop PT appointment was made for 5 days after surgery. She has already seen Dr. Amor for medical clearance. Prescription has been provided for a rolling walker. Informed written consent will be obtained on the morning of surgery for left total knee arthroplasty and right thumb cyst aspiration.
[2019-06-10] MEDS ORDERED: LR 500ML BOLUS, THEN 15ML/HR IV SCH (06:00)
[2019-06-10] MEDS ORDERED: ROPIVACAINE 0.5% HCL/PF 150 MG, BUPIVACAINE 0.5% MPF 30 ML, EPINEPHrine 0.15 MG, Ketoro... INFIL SCH (06:00)
[2019-06-10] MEDS ORDERED: LR 60ML/HR IV SCH (06:00)
[2019-06-10] MEDS ORDERED: TRANEXAMIC ACID 1,000 MG **IV Pre-op IV SCH (06:00)
[2019-06-10] MEDS ORDERED: CEFAZOLIN 2000MG 2,000 MG/15 ML SYR IV SCH (06:00)
[2019-06-10] MEDS ORDERED: BUPIVACAINE 0.5 % 5 MG/1 ML PF 10ML VIAL ONE (06:22)
[2019-06-10] MEDS ORDERED: ROPIVACAINE 0.5% 5 MG/ML 30 ML VIAL ONE (06:22)
[2019-06-10] MEDS ORDERED: fentaNYL citrate 100 MCG/2 ML VIAL ONE (06:26)
[2019-06-10] MEDS ORDERED: MIDAZOLAM HCL 1 MG/ML 2ML VIAL ONE (06:26)
[2019-06-10] MEDS ORDERED: ORTHO JOINT ANESTHETIC ONE (06:33)
--- NOTE | 2019-06-10 06:40 | History & Physical Bridge Note ---
Date of Service June 10, 2019 History & Physical Bridge Note I have examined the patient, reviewed the History & Physical and in the interval since the performance of the History & Physical I have noted the following changes of clinical significance:consent obtained. no changes noted
[2019-06-10] MEDS ORDERED: methylPREDNISolone acetate 80 MG/ML VIAL ONE (06:56)
[2019-06-10] MEDS ORDERED: ONDANSETRON INJ 2 MG/ML 2 ML VIAL ONE (07:49)
[2019-06-10] MEDS ORDERED: ePHEDrine sulfate 50 MG/ML SYR ONE (07:49)
[2019-06-10] MEDS ORDERED: PROPOFOL IV EMULSION 10 MG/ML 20 ML VIAL IV ONE (07:49)
[2019-06-10] MEDS ORDERED: DEXAMETHASONE SOD INJ 4 MG/ML VIAL ONE (07:49)
[2019-06-10] MEDS ORDERED: PHENYLEPHRINE 100MCG/ML 5ML SYR ONE (07:49)
--- NOTE | 2019-06-10 08:37 | Post Operative Brief Note ---
Immediate Post Op Note v1 Date of Surgery June 10, 2019 Pre & Post Diagnosis Operation Date: 04/29/19 09:20 <No data on this case meets the specified criteria> Operation Date: 06/10/19 07:00 Pre-Op Diagnosis: Left Knee End-Stage Degenerative Joint Disease; Right Thumb Ganglion Cyst Post-Op Diagnosis: Left Knee End-Stage Degenerative Joint Disease; Right Thumb Ganglion Cyst I identified the patient and participated in the time-out.: Yes Procedure Operation Date: 04/29/19 09:20 <No data on this case meets the specified criteria> Operation Date: 06/10/19 07:00 Actual Procedures p Left Total Knee Arthroplast(Left) - Parveen Sterling MD s Right Thumb Ganglion Cyst Aspiration and Cortisone Injection(Right) - Parveen Sterling MD Surgeon Parveen Sterling MD [employer] [email or web address] Estimated Blood Loss 25 Findings Consistent with Post-Op Diagnosis
--- NOTE | 2019-06-10 08:43 | Operative Report ---
Post Operative Report Pre & Post Diagnosis Operation Date: 04/29/19 09:20 <No data on this case meets the specified criteria> Operation Date: 06/10/19 07:00 Pre-Op Diagnosis: Left Knee End-Stage Degenerative Joint Disease; Right Thumb Ganglion Cyst Post-Op Diagnosis: Left Knee End-Stage Degenerative Joint Disease; Right Thumb Ganglion Cyst I identified the patient and participated in the time-out.: Yes Procedure Operation Date: 04/29/19 09:20 <No data on this case meets the specified criteria> Operation Date: 06/10/19 07:00 Actual Procedures p Left Total Knee Arthroplast(Left) - Parveen Sterling MD s Right Thumb Ganglion Cyst Aspiration and Cortisone Injection(Right) - Parveen Sterling MD Surgeon GIANNI Sterling MD [employer] Estimated Blood Loss 25 Findings Consistent with Post-Op Diagnosis Specimens see operative report Drains none Complications none Disposition Accompanied Patient To Recovery: Yes Disposition: Recovery Room Indications This 78-year-old white female presented to the office with complaints of intractable left knee pain. She also noted a cyst on her right thumb that was painful. Patient had tried conservative care measures without improvement. She elected to proceed with surgical intervention after being educated about potential risks and outcomes. Preoperative imaging was obtained. Description of Procedure Patient was administered a spinal anesthetic and then taken to the operating room where she was given sedation. She was prepped and draped in the usual sterile fashion. Please see Dr. Sterling's operative report for specifics of the procedure. I was present for the entire case from initial patient p ositioning through final wound closure. Assistance was provided in tissue retraction, hemostasis, trial implant placement, final implant placement, and final wound closure. Patient was taken to the recovery room in satisfactory condition. I attest to the content of the Intraoperative Record and any orders documented therein. Any exceptions are noted below.
[2019-06-10] MEDS ORDERED: VANCOMYCIN CONSULT ACTIVE PRN (08:49)
--- NOTE | 2019-06-10 08:56 | Operative Report ---
DATE OF OPERATION: 06/10/2019 DESCRIPTION OF PROCEDURE: The patient had a large ganglion cyst of the right wrist. At this point in time, she wanted it aspirated and injected. Timeout was performed, identified as appropriate site and aspirated for about 4-5 mL of gelatinous material and injected with 1 mL of Depo-Medrol 80 mg per mL. Tolerated well. Light pressure dressing applied. I attest to the content of the Intraoperative Record and any orders documented therein. Any exception s are noted below.
--- NOTE | 2019-06-10 08:56 | Operative Report ---
DATE OF OPERATION: 06/10/2019 SURGEON: Parveen Sterlnig MD COMMUNITY DIRECTOR: Brody Perry PA-C. No resident or fellow available. PREOPERATIVE DIAGNOSIS: Severe osteoarthritis with inflammatory component, left knee. POSTOPERATIVE DIAGNOSIS: Severe osteoarthritis with inflammatory component, left knee. OPERATION PERFORMED: Cemented left total knee replacement. PERIOPERATIVE SITUATION: Medically cleared female with multiple medical comorbidities who has an aggressive form of inflammatory arthropathy as well as degenerative disease throughout her body, mostly involving her upper extremities and her shoulders, but also has in her knees. At this point in time, she has an end-stage tricompartmental degenerative process in her left knee and wished to proceed with surgical treatment. DESCRIPTION OF PROCEDURE: The patient appropriately identified, site verified, consent verified. Antibiotics confirmed as being given. The left lower extremity was prepped and draped in usual routine fashion. Tourniquet inflated to 300 mmHg after exsanguination of limb with a rubber Esmarch bandage after the leg was exsanguinated. Total tourniquet time was roughly 48 minutes. Midline exposure was utilized. Parapatellar arthrotomy performed. Synovectomy completed. Patella everted. Bone was soft. Distal femur entered. Cruciates resected. Distal femur resected 12 mm, proximal tibia resected 4 mm off the high side. The extension gap was excellent. Femur was sized to an exact 4. It was then cut and the flexion gap was noted to be excellent. The box cut was then made and the size 4 narrow fit well. The tibia was then broached and reamed to a size 4. Care taken to minimize any type of potential overhang. Size 3 was a little bit small, 4 was just at the margins. Once the size 4 was fit, 10 mm spacer fit knee was stable in all planes including mid range flexion, had full extension. The patella tracked well. The patella was resected and a 38 button seating trial holes were made and the trial tracked well. Once this was all done, the Orthomix was injected about the whole knee including posteriorly. The trial implants were removed. The wound was irrigated with Betadine Pulsavac, the permanent cemented in position. Tibia, femur and patella in that order. After 12 minutes, the tourniquet deflated. After 2 additional minutes, the knee was flexed. Minor cement removal required. Wound was irrigated with Betadine Pulsavac. No extra cement needed to be removed and then the liner was then reduced permanently and the knee reduced and the patella tracked well. The wound was then closed at about 30-40 degrees of flexion with #2 Vicryl, 2-0 Vicryl and stainless steel clips. Appropriate dressing applied. The patient transferred to recovery room in satisfactory condition having tolerated the procedure well. DVT prophylaxis with Coumadin. EBL was 25 mL. PATHOLOGY: Pending on bone. Crystalloid per anesthesia. SUMMARY OF IMPLANTS: Size 4 left narrow femur, size 4 mobile bearing tray, oval dome 3 peg patella size 38, tibial insert size 4, 10 mm thick posterior cruciate substituting, 2 bags of Palacos G cement. I attest to the content of the Intraoperative Record and any orders documented therein. Any exception s are noted below.
--- NOTE | 2019-06-10 09:25 | XRay Report ---
TWO VIEWS LEFT KNEE CLINICAL HISTORY: Postoperative examination. FINDINGS: AP and crosstable lateral portable views of the left knee are obtained. A left knee arthrop lasty is in near anatomic alignment. There has been undersurface remodeling of the patella. No acute fracture is seen. There are expected postoperative changes around the knee including skin clips, soft tissue edema, and subcutaneous gas. IMPRESSION: Expected postoperative changes status post left knee arthroplasty. No acute fracture is s een. Electronically signed by: Dale Washington M.D. 06/10/2019 9:23 AM
--- NOTE | 2019-06-10 09:28 | Anesthesiology Progress Note ---
Date of Service June 10, 2019 Anesthesia Post Procedure Vital Signs Vital Signs: Temp Pulse Pulse Resp BP Pulse Ox 06/10/19 09:20 83 15 109/52 L 93 06/10/19 09:10 86 13 102/55 L 96 06/10/19 09:00 83 13 114/54 L 93 06/10/19 08:50 81 16 101/55 L 97 06/10/19 08:41 37.1 C 87 23 109/50 L 94 06/10/19 05:20 37 C 75 20 123/73 96 Pain Intensity Left Knee: Pain Intensity: 0 Transfer of Care Handoff Completed per policy Notes Mental Status: alert / awake / arousable and participated in evaluation Patient Amnestic to Procedure: Yes Nausea / Vomiting: adequately controlled Pain: adequately controlled Airway Patency, RR, SpO2: stable & adequate BP & HR: stable & adequate Hydration State: stable & adequate Neuraxial Anesthesia: was administered and sensory block is resolving Anesthetic Complications: no major complications apparent
[2019-06-10] MEDS ORDERED: TRAMADOL HCL 50 MG TABLET PO PRN (10:08)
[2019-06-10] MEDS ORDERED: MAGNESIUM HYDROXIDE SUSP 30 ML UDC PO PRN (10:08)
[2019-06-10] MEDS ORDERED: HYDROmorphone INJ 0.5 MG/0.5 ML SYR IV PRN (10:08)
[2019-06-10] MEDS ORDERED: METOCLOPRAMIDE HCL INJ 5 MG/ML 2 ML VIAL IV PRN (10:08)
[2019-06-10] MEDS ORDERED: DiphenhydrAMINE HCL 50 MG/ML VIAL IV PRN (10:08)
[2019-06-10] MEDS ORDERED: ALUMINUM/MAGNESIUM SUSP 30 ML UDC PO PRN (10:08)
[2019-06-10] MEDS ORDERED: ONDANSETRON INJ 2 MG/ML 2 ML VIAL IV PRN (10:08)
[2019-06-10] MEDS ORDERED: bisacodyL 10 MG SUPP PR PRN (10:08)
[2019-06-10] MEDS ORDERED: NALOXONE HCL 0.4 MG/1 ML VIAL/CARP IV PRN (10:08)
[2019-06-10] MEDS ORDERED: SODIUM CHLORIDE 0.9% 1000ML 1,000 ML IV SCH (10:30)
[2019-06-10] MEDS ORDERED: ARTIFICIAL TEARS OP PRN (10:56)
[2019-06-10] MEDS ORDERED: VANCOMYCIN HCL 750 MG in SODIUM CHLORIDE 0.9% 250 ML IV ONE (11:00)
[2019-06-10] MEDS: DOCUSATE SODIUM 100 MG CAP PO SCH ×2 (11:33→20:23)
[2019-06-10] MEDS: KETOROLAC TROMETHAMINE 15 MG/ML VIAL IV SCH ×3 (11:33→23:49)
[2019-06-10] MEDS: MULTIVITAMIN TAB PO SCH (11:33)
--- NOTE | 2019-06-10 12:56 | Progress Note ---
DATE: 06/10/2019 Status post left total knee replacement. At this point in time, the patient is resting comfortably in bed. She denies any real pain. Neurovascular check is limited by the spinal is still present. She is starting to roll her legs and slightly dorsiflex her feet. Her hip is located. She denies any chest pain, shortness of breath, fever, chills, nausea, vomiting or headache. Wound dressing clean, dry and intact. Neurovascular check as noted above. Postop x-rays look excellent. ASSESSMENT: Doing well. Continue with postop care pathway. Hep-Lock IV fluid as she is eating and drinking and mobilize BRENDA when her legs wake up to minimize risk for DVT, PE.
--- NOTE | 2019-06-10 13:02 | Discharge Summary ---
DATE OF POTENTIAL DISCHARGE: 06/11/2019 CHIEF COMPLAINT: Left knee pain. HISTORY OF PRESENT ILLNESS: Longstanding problem with painful left knee. Has x-rays revealing tricompartmental degenerative disease and an osteochondral fragment of the lateral femoral condyle. Incidentally also had a right thumb cyst, wanted that aspirated and injected. Hospital course to date has been uneventful. She tolerated the procedure well. Her spinal is wearing off. Her postop x-rays look excellent. She does well overnight, will be discharged tomorrow with home health. PAST MEDICAL HISTORY: Remarkable for osteoarthritis, psoriatic arthritis, neck pain, back pain, previous lung cancer. ALLERGIES: CODEINE AND MORPHINE - NAUSEA AND VOMITING. PREADMISSION MEDICATIONS: Include Caltrate, clobetasol, Lutein, meloxicam, Systane eye drops, Tylenol. She will continue those and add Coumadin to keep INR 1.8-2.2. FAMILY HISTORY: Remarkable for arthritis, otherwise unremarkable. Her mother lived to age 92. PAST SURGICAL HISTORY: Remarkable for left upper lung lobe resection in 2017. Multiple rotator cuff surgeries, recent reverse shoulder replacement on the right. History of right proximal femur fracture treated with a taisha and history of bipolar replacement for left femoral neck fracture. SOCIAL HISTORY: Reveals she is . No tobacco or alcohol use. She is a former smoker. REVIEW OF SYSTEMS: Noncontributory. Postop x-rays look excellent. ASSESSMENT: Overall, doing well status post left total knee replacement. Continue with postop care pathway, mobilize when the legs wake up. Hep-Lock IV as she is eating and drinking.
[2019-06-10] MEDS: ACETAMINOPHEN 500 MG TAB PO SCH ×2 (13:36→20:22)
[2019-06-10] MEDS ORDERED: ORTHO WARFARIN NOMOGRAM SCH (14:00)
[2019-06-10] MEDS: CEFAZOLIN 2000MG 2,000 MG/15 ML SYR IV SCH ×2 (14:55→22:16)
[2019-06-10] MEDS ORDERED: TRANEXAMIC ACID 1,000 MG in 0.9 % SODIUM CHLORIDE 100 ML IV SCH (15:00)
[2019-06-10] MEDS ORDERED: WARFARIN SOD 5 MG TAB PO SCH (16:00)
[2019-06-10] MEDS: FERROUS GLUCONATE 324 MG TAB PO SCH (16:43)
[2019-06-10] MEDS: ASCORBIC ACID 500 MG TAB PO SCH (16:43)
[2019-06-10] MEDS ORDERED: SENNA 8.6 MG TAB PO SCH (21:00)
[2019-06-11] MEDS: KETOROLAC TROMETHAMINE 15 MG/ML VIAL IV SCH (05:01)
[2019-06-11] MEDS: ACETAMINOPHEN 500 MG TAB PO SCH (05:01)
[2019-06-11 06:34] LABS: Hematocrit (blood only) 33.7 % (37-47); Mean Corpuscular Hemoglobin 27.8 pg (25-34); Mean Corpuscular Hgb Conc 32.6 g/dL (32-36); Mean Corpuscular Volume 85.3 fL (80-100); Platelet Count 263 K/uL (130-400); RDW Coefficient of Variation 14.8 % (11.5-14.5); RDW Standard Deviation 46.5 fL (36.4-46.3); Red Blood Count 3.95 M/uL (4.2-5.4); White Blood Count 13.45 K/uL (4.8-10.8)
--- NOTE | 2019-06-11 06:35 | Progress Note ---
DATE: 06/11/2019 SUBJECTIVE: Status post left total knee replacement, postop day #1. The patient is doing well. Reading in the bed, has no chest pain, shortness of breath, fever, chills, nausea, vomiting or headache. OBJECTIVE: Vital signs are stable. She is afebrile. Neurovascular check femoral sciatic nerve is normal. Wound dressing clean, dry and intact. Laboratory work is pending. ASSESSMENT: Doing well. Discharged today to home, home health. Coumadin per nomogram.
[2019-06-11 06:41] LABS: INR 1.1 (0.9-1.1); Prothrombin Time 11.6 Seconds (9.0-12.0)
[2019-06-11 07:13] LABS: BUN Creatinine Ratio 20.7 (10-20); Calcium 8.7 mg/dl (8.5-10.1); Creatinine Clr Calc Pharmacy 56.2 ml/min; Est GFR (African American) 96.9; Est GFR (Non-African American) 83.6; Potassium 4.2 mmol/L (3.5-5.1)
[2019-06-11] MEDS ORDERED: dexAMETHasone 10 MG in SYRINGE 0 ML IV SCH (08:00)
[2019-06-11] MEDS: MULTIVITAMIN TAB PO SCH (08:59)
[2019-06-11] MEDS: ASCORBIC ACID 500 MG TAB PO SCH (08:59)
[2019-06-11] MEDS: DOCUSATE SODIUM 100 MG CAP PO SCH (08:59)
[2019-06-11] MEDS: FERROUS GLUCONATE 324 MG TAB PO SCH (08:59)
[2019-06-11] MEDS ORDERED: WARFARIN SOD 5 MG TAB PO ONE (10:15)
--- NOTE | 2019-06-11 11:54 | Orthopedic Progress Note ---
Date of Service June 11, 2019 Assessment & Plan (1) S/P total knee arthroplasty: Dressings were changed by me. These will be left in place until Saturday. PT/OT today, prior to discharge. Anticipate discharge to home today with home health services this weekend. Follow-up in the office on Saturday at 10:30 AM for physical therapy with Alejandro. She may get her INR obtained at that time. Continue Coumadin. Dose today before she leaves. She will then take 4 mg daily on Saturday, Saturday, and Saturday. Continue knee immobilizer until Saturday. Continue using her walker for ambulation. Prescriptions for Coumadin and Ultram have been sent to her [facility] pharmacy. She declined any narcotic prescriptions. Subjective Patient is seen in her room this morning. She is sitting up, awake, and alert. She denies any chest pain, shortness of breath, nausea, vomiting, abdominal pain, or significant leg pain. She feels ready for discharge. No other complaints. Physical therapy has just arrived to work with her. Review of Systems Review of Systems: Unchanged from preop Physical Exam Physical Exam: General: Well-developed, well-nourished, elderly white female, in no acute distress. Sitting on the bed. Alert and oriented. Musculoskeletal: Left leg dressings are dry. Upon removal, there is no active bleeding. Scant dried drainage on her dressings. Expected postoperative edema and ecchymosis. She is able to perform straight leg raise. Full terminal extension. Intact motor function to the ankle and toes. Flexion to 45 degrees easily. Neurologic: Gross sensation is intact across the left lower extremity by soft touch. Peripheral pulses are 2+. Results & Data Vital Signs (Past 12 Hours) Vital Signs Temp Pulse Resp BP Pulse Ox 06/11/19 07:57 36.3 C L 71 16 120/69 95 06/11/19 05:07 36.6 C 73 16 126/78 98 06/10/19 23:54 36.4 C L 78 14 113/69 94 Laboratory Results H&H are 11.0 and 33.7. WBCs 13.45.INR is 1.1.
--- NOTE | 2019-06-11 14:29 | Anesthesiology Progress Note ---
Date of Service June 11, 2019 Anesthesia Post Procedure Vital Signs Vital Signs: Temp Pulse Resp BP BP Pulse Ox 06/11/19 12:28 96 06/11/19 07:57 36.3 C L 71 16 120/69 95 06/11/19 05:07 36.6 C 73 16 126/78 98 06/10/19 23:54 36.4 C L 78 14 113/69 94 06/10/19 19:38 36.3 C L 84 16 134/68 93 06/10/19 15:28 36.1 C L 82 16 146/78 H 94 Pain Intensity Left Knee: Pain Intensity: 5 Notes Mental Status: alert / awake / arousable and participated in evaluation Patient Amnestic to Procedure: Yes Nausea / Vomiting: adequately controlled Pain: adequately controlled Airway Patency, RR, SpO2: stable & adequate BP & HR: stable & adequate Hydration State: stable & adequate Neuraxial Anesthesia: was administered and sensory block resolved Anesthetic Complications: no major complications apparent and Pt Satisfied with anesthetic care
== END 2019-06-11 13:03 | disposition home health service (06) | DRG 470 ==
LOC: ASU 04:52 → 3E 08:49

== ENCOUNTER 2023-02-21 19:42 | Inpatient (IN) ==
[2023-02-21] MEDS ORDERED: MoRPHine SULFATE 2 MG/ML CARP ONE (20:17)
[2023-02-21] MEDS ORDERED: ONDANSETRON INJ 2 MG/ML 2 ML VIAL ONE (20:17)
[2023-02-21] MEDS ORDERED: MoRPHine SULFATE 2 MG/ML CARP IV PRN (20:19)
[2023-02-21] MEDS ORDERED: ONDANSETRON INJ 2 MG/ML 2 ML VIAL IV STA ×2 (20:19→22:18)
[2023-02-21] MEDS ORDERED: MoRPHine SULFATE 2 MG/ML CARP IV STA ×2 (20:19→22:18)
--- NOTE | 2023-02-21 20:22 | Emergency Department Note ---
Impression & Plan Kidney stone ADMIT ED Provider Note HPI: The patient is a very pleasant 82-year-old female with history of osteoarthritis, degenerative disc disease with previous lumbar spinal fusion surgery, who presents emergency department with a chief complaint of right lower back pain. Patient states that her pain acutely worsened earlier this afternoon. Patient describes the pain as severe in nature located in the right lower back and not in the midline. Patient states the pain is nonradiating. On arrival to the ED the patient is in moderate distress secondary to pain, motor and sensory function is intact distally in the bilateral lower extremities. Patient does have nausea and did have one episode of dry heaving during my assessment. ROS: - Per HPI Differential Diagnosis: Acute on chronic lower back pain, kidney stone, cauda equina syndrome, atraumatic lumbar spine fracture, metastatic disease/mass to the lumbar spine, amongst other potential pathologies. *Outpatient medications and allergy history reviewed. *Pertinent external medical records reviewed. PE: General: Alert, moderate distress secondary to pain HEENT: Normocephalic, trachea midline Eyes: Extraocular eye movement is intact, no scleral erythema Pulmonary: Clear to auscultation bilaterally, no wheezing Cardio: Tachycardic rate with regular rhythm GI: Abdomen is soft to palpation : No suprapubic tenderness, there is moderate right flank tenderness to palpation MSK: No evidence of trauma or malformation of the extremities, no edema, no midline tenderness to the thoracic or lumbar spine Skin: No evidence of rash Neuro: Alert, no focal deficits Psychiatric: Cooperative home specialist: (As interpreted by myself): - An order was placed for continuous cardiac monitoring - Patient was noted to be in sinus tachycardia with a rate of 111 EKG: (As interpreted by myself): Rate: 107 Rhythm: Sinus tachycardia Intervals: Within normal limits ST changes: No ST elevation Time: 2026 Interventions provided in ED: -IV fluid bolus, IV morphine, IV Zofran, IV ceftriaxone Medical Decision Making: Shortly after the patient arrived IV was established lab work ordered, patient was maintained on toggle press operator. Patient was given IV morphine and IV Zofran for her symptoms. Lab work shows a leukocytosis of 16.18, hemoglobin is normal at 13.5, platelet count is normal at 314, CMP shows hypokalemia 3.0 which was ordered for oral repletion, BUN slightly elevated at 27, high-sensitivity troponin is slightly elevated at 38.6. Patient denies any chest pain, does have some shortness of breath. Low suspicion for ACS given the location of patient's pain in the right flank/right lower right back area. CT imaging of the lumbar spine was obtained without contrast that shows evidence of multiple chronic findings including chronic fractures in the lumbar spine, no evidence of any acute abnormality is apparent. There was finding incidentally of a 9 mm kidney stone in the proximal right ureter with hydronephrosis on the right side. I suspect this is likely the source of the patient's pain. Given her shortness of breath on arrival with tachycardia, CT angiography of the chest was also obtained that does not show any evidence of pulmonary embolism, no evidence of aortic dissection. I suspect that the mildly elevated troponin is likely demand in nature related to tachycardia and the severe pain the patient had been experiencing throughout the afternoon. On my reassessment following IV morphine and IV Zofran patient states that her pain is greatly improved. She appears much more comfortable. Urinalysis was obtained and does not show any evidence of any obvious infection, nitrite negative, trace leukocyte Estrace, no significant pyuria. I discussed all the above findings with the on-call urology physician sales assistant institutional sales, Jacob Hua PA-C, who did evaluate the patient at the bedside. Given leukocytosis patient was treated with IV ceftriaxone following blood cultures being obtained. I discussed all the above findings with the patient and her daughter at the bedside, at this time they are in agreement for admission for pain control and [facility]rology consultation. [facility] and the patient was placed for admission in stable condition. Consultants: Urology service, Dr. Norman / Jacob Hua PA-C Disposition discussion held by myself with: Patient and daughter at bedside Diagnosis: 1. Kidney stone, right-sided, proximal ureter, with hydronephrosis 2. Right lower back pain, acute 3. Elevated high-sensitivity troponin level 4. Elevated BUN 5. Leukocytosis, acute, nonspecific Disposition: Admission Bashir Schreiber DO Emergency Medicine Past Med/Surg History Medical History (Updated 02/22/23 @ 00:25 by Bashir Schreiber DO) Adenocarcinoma of lung Per chest CT 12/08/18: "No evidence for recurrent malignancy status post left upper lobectomy." Degenerative disc disease Dry eye syndrome Osteoarthritis Psoriasis Pulmonary nodule Surgical History Family history of reaction to anesthesia MOTHER, SISTER AND DAUGHTER NAUSEA Fusion of spine 4 LUMBAR FUSIONS (TOTAL 3-4 BACK SURGERIES) H/O cervical spine surgery GOOD ROM H/O foot surgery LEFT H/O wrist surgery RT History of arthroscopy RT KNEE History of bilateral tubal ligation History of cataract surgery RT/LEFT History of colonoscopy History of dilatation and curettage History of herniorrhaphy History of lobectomy of lung UPPER LEFT LOBE History of shoulder surgery RT REVERSAL TSA History of tooth extraction Nausea and vomiting after administration of anesthetic agent S/P hip replacement Family History Other No significant family history Social History Smoking Status: Never smoker Cigarettes Per Day: 20; Second Hand Exposure: No; Do You Dip or Chew Tobacco: No; Hx Alcohol Use: No Hx Substance Use: No Preferred Language: Macedonian Communication Ability: Effective Switchboard Inspector Required: No Beliefs That Will Affect Care: None marital status: / Current Living Situation: Alone current occupational status: retired Feels Safe at Home: Yes Dental Care, Regularly: No Physical Activity Frequency: 3-4 Times per Week Seatbelt Use: always Sunscreen Use: Yes Assistive Devices: Brace/Splint/Immobilizer and Walker Allergies Allergies Allergy/AdvReac Type Severity Reaction Status Date / Time codeine AdvReac Mild NAUSEA/VOMI Verified 02/21/23 23:25 T morphine AdvReac Mild NAUSEA/VOMI Verified 02/21/23 23:25 T Home Meds Home Medications Medication Instructions Recorded Confirmed peg 400-propylene glycol (PF) 0.4 1 drp ophthalmic (eye) BID PRN Dry 05/21/19 02/21/23 %-0.3 % eye drops in a dropperette Eyes (Systane (PF)) abaloparatide (Tymlos) 80 mcg subcut HS 02/21/23 02/21/23 acetaminophen 500 mg tablet 500 mg PO Q6H PRN Fever Or Pain 02/21/23 02/21/23 calcium citrate 315 mg 1 tab PO QAM 02/21/23 02/21/23 calcium-vitamin D3 6.25 mcg (250 unit) tablet (Citracal + Vitamin D Maximum) cyanocobalamin (vitamin B-12) 1,000 mcg PO QAM 02/21/23 02/21/23 1,000 mcg tablet (Vitamin B-12) meloxicam 15 mg tablet 15 mg PO HS 02/21/23 02/21/23 methocarbamol 500 mg tablet 250 mg PO DAILY PRN Pain 02/21/23 02/21/23 vit C 250 mg-vit E 90 mg-zinc 40 1 tab PO AMHS 02/21/23 02/21/23 mg-copper 1 [id number] capsule (PreserVision AREDS-2) Results & Data (ED) Vital Signs Vital Signs - 24 hr 02/21/23 19:52 02/21/23 21:13 02/21/23 20:55 Temperature 36.2 C L Temperature Source Temporal Artery Scan Pulse Rate 120 H 102 H Pulse Rate [Apical] 103 H Respiratory Rate 18 22 Respiratory Effort / Characteristics Non-Labored Respiratory Depth Normal Respiratory Pattern Blood Pressure 195/95 H Blood Pressure [Left Arm] 179/76 H Blood Pressure Mean 128 Blood Pressure Mean [Left Arm] 110 Blood Pressure Position [Left Arm] Semi-fowlers Pulse Oximetry 98 97 Oxygen Delivery Method Room Air Nasal Cannula Oxygen Flow Rate 2 Sepsis Recent Fever Within 48 Hours No Sepsis New/Unexplained Change in Mental Status No Sepsis Action Taken by Nursing No Action Required 02/21/23 23:47 Temperature Temperature Source Pulse Rate Pulse Rate [Apical] 108 H Respiratory Rate 22 Respiratory Effort / Characteristics Non-Labored Spontaneous Respiratory Depth Normal Respiratory Pattern Regular Blood Pressure Blood Pressure [Left Arm] 146/90 H Blood Pressure Mean Blood Pressure Mean [Left Arm] 108 Blood Pressure Position [Left Arm] Pulse Oximetry 98 Oxygen Delivery Method Nasal Cannula Oxygen Flow Rate Sepsis Recent Fever Within 48 Hours Sepsis New/Unexplained Change in Mental Status Sepsis Action Taken by Nursing Laboratory Data 02/21/23 20:15 02/21/23 20:15 Lab Results 02/21/23 02/21/23 02/21/23 Range/Units 20:15 20:15 22:42 WBC 16.18 H (4.8-10.8) K/ul RBC 4.58 (4.20-5.40) M/uL Hgb 13.5 (12.0-16.0) g/dl Hct 40.0 (37.0-47.0) % MCV 87.3 (80.0-100.0) fL MCH 29.5 (25.0-34.0) pg MCHC 33.8 (32.0-36.0) g/dL RDW Std Deviation 42.7 (36.4-46.3) fL RDW Coeff of Macey 13.3 (11.5-14.5) % Plt Count 314 (130-400) K/uL MPV 10.2 (9.4-12.4) fL Immature Gran % (Auto) 0.4 % Neut % (Auto) 66.3 % Lymph % (Auto) 22.0 % Kinney % (Auto) 7.8 % Eos % (Auto) 2.3 % Baso % (Auto) 1.2 % Neut # (Auto) 10.73 H (1.40-6.50) K/uL Lymph # (Auto) 3.56 H (1.2-3.4) K/uL Kinney # (Auto) 1.27 H (0.11-0.59) K/uL Eos # (Auto) 0.37 (0-0.50) K/uL Baso # (Auto) 0.19 (0-0.2) K/uL Immature Gran # (Auto) 0.06 (0.01-0.20) K/uL Sodium 142 (136-145) mmol/L Potassium 3.0 L (3.5-5.1) mmol/L Chloride 104 (98-107) mmol/L Carbon Dioxide 28 (21-32) mmol/L Anion Gap 10 (3-11) BUN 27 H (6-23) mg/dl Creatinine 0.82 (0.6-1.2) mg/dl Est Cr Clr Drug Dosing 41.1 ml/min Est GFR ( Amer) 76.7 ml/min Est GFR (Non-Af Amer) 66.2 ml/min BUN/Creatinine Ratio 32.9 H (10-20) Glucose 143 H (70-99(Fasting)) mg/dl Calcium 9.5 (8.6-10.3) mg/dl Magnesium 2.0 (1.7-2.4) mg/dl Total Bilirubin 0.5 (0.2-1.0) mg/dl AST 29 (13-39) U/L ALT 26 (7-52) U/L Alkaline Phosphatase 60 (34-104) U/L Troponin I High Sens 38.6 H (0-14) pg/ml Total Protein 7.0 (6.0-8.3) gm/dl Albumin 4.4 (3.4-5.0) gm/dl Globulin 2.6 (2.5-4.0) gm/dl Albumin/Globulin Ratio 1.7 (0.9-2) Urine Color Yellow Urine Appearance Clear (Clear) Urine pH 6.5 (4.5-7.5) Ur Specific [place] 1.037 H (1.000-1.030) Urine Protein Trace H (Negative) Urine Glucose (UA) Negative (Negative) Urine Ketones 1+ H (Negative) Urine Blood Negative (Negative) Urine Nitrite Negative (Negative) Urine Bilirubin Negative (Negative) Urine Urobilinogen Negative (Negative) Ur Leukocyte Esterase Trace H (Negative) Urine WBC (Auto) 1-5 (0-5) /hpf Urine RBC (Auto) 0-4 (0-4) /hpf U Hyaline Cast (Auto) 1-5 (0-5) /lpf U Epithel Cells (Auto) 20-30 H (0-5) /lpf Urine Bacteria (Auto) Negative (Negative) Administered Medications Morphine Sulfate (Morphine Sulfate 2 Mg/Ml Carp) 2 mg IV ONCE PRN PRN Reason: Pain Stop: 03/07/23 20:18 Last Admin: 02/21/23 21:07 Dose: 2 mg Documented By: Discontinued Medications Sodium Chloride (Nss 1000ml) 1,000 mls @ 999 mls/hr IV .Q1H1M ONE Stop: 02/21/23 23:18 Last Admin: 02/21/23 22:22 Dose: 999 mls/hr Documented By: Ceftriaxone Sodium 1,000 mg/ (Dextrose) 50 mls @ 100 mls/hr IV NOW STA Stop: 02/21/23 23:34 Last Admin: 02/21/23 23:43 Dose: 100 mls/hr Documented By: MED Ioversol (Ioversol 350 Mg 125ml Prefilled Syringe) 119 ml IV ONCE ONE Stop: 02/21/23 22:05 Last Admin: 02/21/23 22:04 Dose: 119 ml Documented By: JANES Morphine Sulfate (Morphine Sulfate 2 Mg/Ml Carp) Confirm Administered Dose 2 mg .ROUTE .STK-MED ONE Stop: 02/21/23 20:18 Last Admin: 02/21/23 20:28 Dose: Not Given Documented By: AB Morphine Sulfate (Morphine Sulfate 2 Mg/Ml Carp) 2 mg IV NOW STA Stop: 02/21/23 20:20 Last Admin: 02/21/23 20:25 Dose: 2 mg Documented By: AB Morphine Sulfate (Morphine Sulfate 2 Mg/Ml Carp) 2 mg IV NOW STA Stop: 02/21/23 22:19 Last Admin: 02/21/23 22:22 Dose: 2 mg Documented By: AB Ondansetron HCl (Ondansetron Inj 2 Mg/Ml 2 Ml Vial) Confirm Administered Dose 4 mg .ROUTE .STK-MED ONE Stop: 02/21/23 20:18 Last Admin: 02/21/23 20:28 Dose: Not Given Documented By: AB Ondansetron HCl (Ondansetron Inj 2 Mg/Ml 2 Ml Vial) 4 mg IV NOW STA Stop: 02/21/23 20:20 Last Admin: 02/21/23 20:25 Dose: 4 mg Documented By: AB Ondansetron HCl (Ondansetron Inj 2 Mg/Ml 2 Ml Vial) 4 mg IV NOW STA Stop: 02/21/23 22:19 Last Admin: 02/21/23 22:22 Dose: 4 mg Documented By: AB Potassium Chloride (Potassium Chloride Pwd 20 Meq Pack) 40 meq PO ONCE ONE Stop: 02/21/23 23:06 Last Admin: 02/21/23 23:39 Dose: 40 meq Documented By: MED Tamsulosin HCl (Tamsulosin Hcl 0.4 Mg Cap) 0.4 mg PO NOW ONE Stop: 02/21/23 23:07 Last Admin: 02/21/23 23:39 Dose: 0.4 mg Documented By: MED Imaging Data Radiologist's Impression: Lumbar Spine CT 02/21/23 20:18 Exam(s): CT L SPINE EXAM: CT Lumbar Spine Without Intravenous Contrast CLINICAL HISTORY: Acute on chronic R lower back pain. TECHNIQUE: Axial computed tomography images of the lumbar spine without intravenous contrast. CTDI is 22.99 mGy and DLP is 627.13 mGy-cm. Automated exposure control was utilized for the study. A dose lowering technique was utilized adhering to the principles of ALARA. COMPARISON: Plain radiographs 06/21/2020: CT abdomen and pelvis dated 08/24/2022 FINDINGS: Vertebrae: The vertebral bodies are stable in appearance without acute fracture. Stable appearing loss of height involving the superior endplate at L1 level. There is similar scoliosis, convex right with a 14 mm rightward listhesis of L3 on L4. There is a chronic fracture through the posterior left vertebral body at L1 level adjacent to the pedicle. 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 Discs/spinal canal/neural foramina: There is posterior fusion at L2 and L3 levels with pedicle screws and paraspinal rods, stable. 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 There is moderately severe disc spondylosis with narrowing and marginal hypertrophic changes at L1-2, L3-L4 and L5-S1. There are laminectomy defects at the level of the posterior fusion there is mild osseous neural foraminal encroachment at the left T12-L1 level. Otherwise no significant osseous canal stenosis. Soft tissues: Unremarkable. Vasculature: Atherosclerotic calcification of the aorta. Kidneys and ureters: There is a 5 x 9 mm proximal to mid right ureteral stone with at least moderate hydroureteronephrosis. There is mild left hydronephrosis without obvious collecting stone, where visible. Detailed evaluation limited. IMPRESSION: 1. The vertebral bodies are stable in appearance without acute fracture. Stable appearing loss of height involving the superior endplate at L1 level. There is similar scoliosis, convex right with a 14 mm rightward listhesis of L3 on L4. There is a chronic fracture through the posterior left vertebral body at L1 level adjacent to the pedicle. 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 The clinical significance of these findings is indeterminant. 2. There is a 5 x 9 mm proximal to mid right ureteral stone with at least moderate hydroureteronephrosis. 3. Scoliosis with multilevel degenerative changes and posterior fusion, as detailed above. Electronically signed by: Richard Abernathy MD 02/21/23 21:37 PM Chest CTA 02/21/23 21:26 Exam(s): CTA CHEST IV Amt: 119ml EXAM: CT Angiography Chest With Intravenous Contrast CLINICAL HISTORY: Evaluate for PE. TECHNIQUE: Axial computed tomographic angiography images of the chest with intravenous contrast. CTDI is 27.4 mGy and DLP is 469.15 mGy-cm. Automated exposure control was utilized for the study. A dose lowering technique was utilized adhering to the principles of ALARA. MIP reconstructed images were created and reviewed. COMPARISON: No relevant prior studies available. FINDINGS: Pulmonary arteries: There is no evidence for pulmonary embolism. Aorta: Atherosclerotic calcification of the aorta without aneurysm. Lungs: There is heterogeneous interlobular septal thickening and peribronchial cuffing, most notable involving the right lung and left lower lobe. Subsegmental changes noted in the lung bases. No mass. Pleural space: Small volume layering bilateral pleural effusions are noted bilaterally, measuring up to 1 cm in thickness. No loculation. No pneumothorax. Heart: The cardiac chambers are borderline prominent. Mild to moderate coronary artery calcification is of uncertain clinical significance. No significant pericardial effusion. Bones/joints: A chronic nonunited posterior right eighth rib fracture is noted. No acute osseous abnormality. Bilateral shoulder arthroplasties noted. No dislocation. Soft tissues: Unremarkable. Lymph nodes: Unremarkable. No enlarged lymph nodes. Upper abdomen: Asymmetric prominent elevation of the left hemidiaphragm. IMPRESSION: 1. There is no evidence for pulmonary embolism. 2. There is heterogeneous interlobular septal thickening and peribronchial cuffing, most notable involving the right lung and left lower lobe. Findings are most consistent with interstitial pulmonary edema. Subsegmental changes noted in the lung bases may represent asymmetric edema or atelectasis. Infection is considered less likely. 3. Small volume layering bilateral pleural effusions are noted bilaterally, measuring up to 1 cm in thickness. No loculation. Electronically signed by: Richard Abernathy MD 02/21/23 22:29 PM Discharge Plan Visit Data Chief Complaint: Back Injury/Pain Stated Complaint: NAUSEA, BACK PAIN, DIFFICULTY BREATHING ED Provider: Bashir Schreiber Discharge Problem: Kidney stone Forms Stand Alone Forms: [facility] Prescriptions Prescriptions: No Action Systane (PF) 0.4-0.3 % Dropperette 1 drp OPHTHALMIC (EYE) BID PRN (Reason: Dry Eyes) PreserVision AREDS-2 250-90-40-1 mg Capsule 1 tab PO AMHS methocarbamol 500 mg tablet 250 mg PO DAILY PRN (Reason: Pain) meloxicam 15 mg tablet 15 mg PO HS acetaminophen 500 mg Tablet 500 mg PO Q6H PRN (Reason: Fever Or Pain) Tymlos 80 mcg (3,120 mcg/1.56 mL) pen injector 80 mcg SUBCUT HS cyanocobalamin (vitamin B-12) [Vitamin B-12] 1,000 mcg Tablet 1,000 mcg PO QAM calcium citrate-vitamin D3 [Citracal + D Maximum] 315 mg-6.25 mcg (250 unit) Tablet 1 tab PO QAM Referrals Referrals: ProHammad MD [Primary Care Provider] -
[2023-02-21 20:43] LABS: Basophils # (auto) 0.19 K/uL (0-0.2); Basophils % (auto) 1.2 %; Eosinophils # (auto) 0.37 K/uL (0-0.50); Eosinophils % (auto) 2.3 %; Hemoglobin 13.5 g/dl (12.0-16.0); Immature Granulocytes # (auto) 0.06 K/uL (0.01-0.20); Immature Granulocytes % (auto) 0.4 %; Lymphocytes # (auto) 3.56 K/uL (1.2-3.4); Mean Corpuscular Hemoglobin 29.5 pg (25.0-34.0); Mean Corpuscular Hgb Conc 33.8 g/dL (32.0-36.0); Mean Corpuscular Volume 87.3 fL (80.0-100.0); Mean Platelet Volume 10.2 fL (9.4-12.4); Monocytes # (auto) 1.27 K/uL (0.11-0.59); Monocytes % (auto) 7.8 %; Neutrophils # (auto) 10.73 K/uL (1.40-6.50); Neutrophils % (auto) 66.3 %; Platelet Count 314 K/uL (130-400); RDW Coefficient of Variation 13.3 % (11.5-14.5); RDW Standard Deviation 42.7 fL (36.4-46.3); Red Blood Count 4.58 M/uL (4.20-5.40); White Blood Count 16.18 K/ul (4.8-10.8)
[2023-02-21 21:09] LABS: Albumin Globulin Ratio 1.7 (0.9-2); Albumin Level 4.4 gm/dl (3.4-5.0); BUN Creatinine Ratio 32.9 (10-20); Bilirubin,Total 0.5 mg/dl (0.2-1.0); Calcium 9.5 mg/dl (8.6-10.3); Creatinine Clr Calc Pharmacy 41.1 ml/min; Est GFR (African American) 76.7 ml/min; Est GFR (Non-African American) 66.2 ml/min; Globulin 2.6 gm/dl (2.5-4.0)
[2023-02-21 21:18] LABS: Troponin I High Sensitivity 38.6 pg/ml (0-14)
--- NOTE | 2023-02-21 21:38 | CT Scan Report ---
Exam(s): CT L SPINE EXAM: CT Lumbar Spine Without Intravenous Contrast CLINICAL HISTORY: Acute on chronic R lower back pain. TECHNIQUE: Axial computed tomography images of the lumbar spine without intravenous contrast. CTDI is 22.99 mGy and DLP is 627.13 mGy-cm. Automated exposure control was utilized for the study. A dose lowering technique was utilized adhering to the principles of ALARA. COMPARISON: Plain radiographs 06/21/2020: CT abdomen and pelvis dated 08/24/2022 FINDINGS: Vertebrae: The vertebral bodies are stable in appearance without acute fracture. Stable appearing loss of height involving the superior endplate at L1 level. There is similar scoliosis, convex right with a 14 mm rightward listhesis of L3 on L4. There is a chronic fracture through the posterior left vertebral body at L1 level adjacent to the pedicle. 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 Discs/spinal canal/neural foramina: There is posterior fusion at L2 and L3 levels with pedicle screws and paraspinal rods, stable. 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 There is moderately severe disc spondylosis with narrowing and marginal hypertrophic changes at L1-2, L3-L4 and L5-S1. There are laminectomy defects at the level of the posterior fusion there is mild osseous neural foraminal encroachment at the left T12-L1 level. Otherwise no significant osseous canal stenosis. Soft tissues: Unremarkable. Vasculature: Atherosclerotic calcification of the aorta. Kidneys and ureters: There is a 5 x 9 mm proximal to mid right ureteral stone with at least moderate hydroureteronephrosis. There is mild left hydronephrosis without obvious collecting stone, where visible. Detailed evaluation limited. IMPRESSION: 1. The vertebral bodies are stable in appearance without acute fracture. Stable appearing loss of height involving the superior endplate at L1 level. There is similar scoliosis, convex right with a 14 mm rightward listhesis of L3 on L4. There is a chronic fracture through the posterior left vertebral body at L1 level adjacent to the pedicle. 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 The clinical significance of these findings is indeterminant. 2. There is a 5 x 9 mm proximal to mid right ureteral stone with at least moderate hydroureteronephrosis. 3. Scoliosis with multilevel degenerative changes and posterior fusion, as detailed above. Electronically signed by: Richard Abernathy MD 02/21/23 21:37 PM
[2023-02-21] MEDS ORDERED: IOVERSOL 350 MG 125mL Prefilled Syringe IV ONE (22:04)
[2023-02-21] MEDS ORDERED: SODIUM CHLORIDE 0.9% 1000ML 1,000 ML IV ONE (22:18)
--- NOTE | 2023-02-21 22:30 | CT Scan Report ---
Exam(s): CTA CHEST IV Amt: 119ml EXAM: CT Angiography Chest With Intravenous Contrast CLINICAL HISTORY: Evaluate for PE. TECHNIQUE: Axial computed tomographic angiography images of the chest with intravenous contrast. CTDI is 27.4 mGy and DLP is 469.15 mGy-cm. Automated exposure control was utilized for the study. A dose lowering technique was utilized adhering to the principles of ALARA. MIP reconstructed images were created and reviewed. COMPARISON: No relevant prior studies available. FINDINGS: Pulmonary arteries: There is no evidence for pulmonary embolism. Aorta: Atherosclerotic calcification of the aorta without aneurysm. Lungs: There is heterogeneous interlobular septal thickening and peribronchial cuffing, most notable involving the right lung and left lower lobe. Subsegmental changes noted in the lung bases. No mass. Pleural space: Small volume layering bilateral pleural effusions are noted bilaterally, measuring up to 1 cm in thickness. No loculation. No pneumothorax. Heart: The cardiac chambers are borderline prominent. Mild to moderate coronary artery calcification is of uncertain clinical significance. No significant pericardial effusion. Bones/joints: A chronic nonunited posterior right eighth rib fracture is noted. No acute osseous abnormality. Bilateral shoulder arthroplasties noted. No dislocation. Soft tissues: Unremarkable. Lymph nodes: Unremarkable. No enlarged lymph nodes. Upper abdomen: Asymmetric prominent elevation of the left hemidiaphragm. IMPRESSION: 1. There is no evidence for pulmonary embolism. 2. There is heterogeneous interlobular septal thickening and peribronchial cuffing, most notable involving the right lung and left lower lobe. Findings are most consistent with interstitial pulmonary edema. Subsegmental changes noted in the lung bases may represent asymmetric edema or atelectasis. Infection is considered less likely. 3. Small volume layering bilateral pleural effusions are noted bilaterally, measuring up to 1 cm in thickness. No loculation. Electronically signed by: Richard Abernathy MD 02/21/23 22:29 PM
[2023-02-21 22:53] LABS: Appearance Urine Clear (Clear); Bacteria Urine Automated Negative (Negative); Bilirubin Urine Negative (Negative); Blood Urine Negative (Negative); Color Urine Yellow; Epithelial Cell Urine Auto 20-30 /lpf (0-5); Glucose Urine UA Negative (Negative); Ketones Urine 1+ (Negative); Leukocyte Esterase Urine Trace (Negative); Nitrite Urine Negative (Negative); Protein Urine Trace (Negative); RBC Urine Automated 0-4 /hpf (0-4); Specific Gravity Urine 1.037 (1.000-1.030); Urobilinogen Urine Negative (Negative); pH Urine 6.5 (4.5-7.5)
[2023-02-21] MEDS ORDERED: cefTRIAXone SODIUM 1,000 MG in DEXTROSE 5% AD-VAN 50 ML IV STA (23:05)
[2023-02-21] MEDS ORDERED: POTASSIUM CHLORIDE PWD 20 MEQ PACK PO ONE (23:05)
[2023-02-21] MEDS ORDERED: TAMSULOSIN HCL 0.4 MG CAP PO ONE (23:06)
--- NOTE | 2023-02-21 23:28 | Urology Consultation ---
I have discussed Ms. Sands's case with Avery Hua PA-C and agree with the associated documentation. Urology will plan to reassess on 02/22/2023 for possible stent placement. Please keep her n.p.o. at midnight. -Vishnu Norman MD. Date of Consultation February 21, 2023 Assessment & Plan (1) Nephrolithiasis: I discussed with the treating emergency room physician and he is having the patient admitted on the hospitalist service. From a urologic perspective we recommend proceeding as follows: Provide analgesics Provide antiemetics Provide IV fluid for hydration Utilize Flomax for expulsive therapy Empiric Rocephin has been initiated. Would continue this medication for the present time. Urinalysis does not appear to be infected. Blood cultures have been sent and these results will be followed with antibiotics tailored based on these results accordingly Implement n.p.o. status at midnight tonight. The patient be reassessed the morning of 02/22/2023. If the patient continues to have significant pain and is unable to pass her kidney stone consideration will be given to performing a cystoscopy. At the present time the patient does have leukocytosis but she is not hypotensive and does not have acute kidney injury. She does have a slight tachycardia but this could be related to pain. She is afebrile and does not have evidence of urinary tract infection on urinalysis and I therefore not feel she is septic. We will continue to monitor closely. Would recommend straining all urine and if any kidney stones are passed they can be sent for appropriate analysis. History of Present Illness Reason for Consultation: Nephrolithiasis History of Present Illness This is an 82-year-old female who presented to the emergency department sec ondary to back pain. Patient notes that she has a history of chronic back pain for which she has had previous surgery. Patient says that secondary to her ongoing back pain she saw Dr. Childress of [facility] who is a painter assistant. He prescribed a muscle relaxant for the patient but despite this modality she continues to have back pain. She notes that earlier today her back pain became "unbearable" prompting her visit to the emergency department. She did have associated nausea and vomiting. She denies any fevers but did have a some occasional shakes and felt cold at times. She specifically denies any dysuria or hematuria. She denies any urinary frequency. She has no prior history of kidney stones. The patient does note that she is currently taking a calcium injection secondary to issues with a nonhealing shoulder arthroplasty. Since arrival to the hospital the patient has had labs and imaging which I independent reviewed. The patient had a CT scan of the chest. This study did not show any evidence of pulmonary embolism there was some interlobular septal thickening and peribronchial cuffing in the right lung and left lower lobe. These findings were felt to represent some interstitial pulmonary edema. The aorta was noted to have some atherosclerotic calcifications but no aneurysmal changes were noted. A lumbar spine CT scan did not demonstrate any acute fractures. On this study the patient was noted to have a 5 x 9 mm proximal to mid right ureteral stone resulting in moderate hydronephrosis. Labs include a CBC her white blood cell count was elevated 16.1. Hemoglobin, hematocrit, and platelet count were all within normal range. Chemistry profile showed sodium was 142 with a potassium of 3.0. BUN and creatinine were 27 and 0.8. High- sensitivity troponin was slightly elevated at 38.6. A urinalysis did show trace leukocyte Estrace but was otherwise not indicative of infection. An EKG showed nonspecific ST and T wave abnormalities. At the time of my interview the patient was resting comfortably in bed and she was no distress. Allergies Allergy/AdvReac Type Severity Reaction Status Date / Time codeine AdvReac Mild NAUSEA/VOMI Verified 02/21/23 23:25 T morphine AdvReac Mild NAUSEA/VOMI Verified 02/21/23 23:25 T Home Medications Medication Instructions Recorded Confirmed Type peg 400-propylene glycol (PF) 0.4 1 drp ophthalmic (eye) BID PRN Dry 05/21/19 02/21/23 History %-0.3 % eye drops in a dropperette Eyes (Systane (PF)) abaloparatide (Tymlos) 80 mcg subcut HS 02/21/23 02/21/23 History acetaminophen 500 mg tablet 500 mg PO Q6H PRN Fever Or Pain 02/21/23 02/21/23 History calcium citrate 315 mg 1 tab PO QAM 02/21/23 02/21/23 History calcium-vitamin D3 6.25 mcg (250 unit) tablet (Citracal + Vitamin D Maximum) cyanocobalamin (vitamin B-12) 1,000 mcg PO QAM 02/21/23 02/21/23 History 1,000 mcg tablet (Vitamin B-12) meloxicam 15 mg tablet 15 mg PO HS 02/21/23 02/21/23 History methocarbamol 500 mg tablet 250 mg PO DAILY PRN Pain 02/21/23 02/21/23 History vit C 250 mg-vit E 90 mg-zinc 40 1 tab PO AMHS 02/21/23 02/21/23 History mg-copper 1 [id number] capsule (PreserVision AREDS-2) Patient History Medical History (Updated 02/21/23 @ 23:23 by Avery Hua PA-C) Adenocarcinoma of lung Per chest CT 12/08/18: "No evidence for recurrent malignancy status post left upper lobectomy." Degenerative disc disease Dry eye syndrome Osteoarthritis Psoriasis Pulmonary nodule Surgical History Family history of reaction to anesthesia MOTHER, SISTER AND DAUGHTER NAUSEA Fusion of spine 4 LUMBAR FUSIONS (TOTAL 3-4 BACK SURGERIES) H/O cervical spine surgery GOOD ROM H/O foot surgery LEFT H/O wrist surgery RT History of arthroscopy RT KNEE History of bilateral tubal ligation History of cataract surgery RT/LEFT History of colonoscopy History of dilatation and curettage History of herniorrhaphy History of lobectomy of lung UPPER LEFT LOBE History of shoulder surgery RT REVERSAL TSA History of tooth extraction Nausea and vomiting after administration of anesthetic agent S/P hip replacement Family History Other No significant family history Social History Smoking Status: Never smoker Cigarettes Per Day: 20; Second Hand Exposure: No; Do You Dip or Chew Tobacco: No; Hx Alcohol Use: No Hx Substance Use: No Preferred Language: Maltese Communication Ability: Effective 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: No Beliefs That Will Affect Care: None marital status: / Current Living Situation: Alone current occupational status: retired Feels Safe at Home: Yes Dental Care, Regularly: No Physical Activity Frequency: 3-4 Times per Week Seatbelt Use: always Sunscreen Use: Yes Assistive Devices: Brace/Splint/Immobilizer and Walker Review of Systems Constitutional: no fever Ear, Nose, Mouth, Throat: no hearing loss Respiratory: no cough and no dyspnea Cardiovascular: no chest pain Gastrointestinal: + nausea and + vomiting; no abdominal pain Genitourinary: as per Subjective / HPI Musculoskeletal: + back pain Integumentary: no rash Neurologic: no generalized weakness Physical Exam Constitutional: WD/WN, vitals as above Eyes: no conjunctival abnormality ENMT: Ears: no hearing impairment and no external ear abnormality Mouth: no oropharynx abnormality Neck: trachea midline Respiratory: normal respiratory effort; no respiratory distress and no labored breathing Breath sounds are noted to have a slight decrease component at the bases. Patient was not using accessory muscles to aid in respiration Cardiovascular: Rate/Rhythm: regular rate and regular rhythm Vessels: dorsalis pedis pulses present and radial pulses present Gastrointestinal (Abdomen): Abdomen is soft, nonrigid, and nondistended. There is no rebound tenderness or guarding. There is no pain with palpation Musculoskeletal: No calf tender Skin: no rashes Neurologic: moves all extremities Psychiatric: A+Ox3, euthymic affect Genitourinary: CVA tenderness noted on the right side with percussion. There is no CVA tenderness noted on the left Results & Data Vital Signs (Past 12 Hours) Vital Signs Temp Pulse Pulse Resp BP BP Pulse Ox 02/21/23 21:13 103 H 22 179/76 H 97 02/21/23 19:52 36.2 C L 120 H 18 195/95 H 98 O2 Del Method O2 Flow Rate 02/21/23 21:13 Nasal Cannula 2 02/21/23 19:52 Room Air PG Care Time/CCT Total # of Minutes Spent Total Time Spent with Patient: Total time spent is greater than 50% in coordination of care (as documented) at patient's floor/unit and/or counseling patient: Coding Level of Care Code 74160 INT INP/OBS CARE 3/75MIN Diagnoses Nephrolithiasis N20.0
--- NOTE | 2023-02-22 00:27 | History & Physical Report ---
Date of Service February 22, 2023 Assessment & Plan (1) Nephrolithiasis: Plan: 82F with PMH of PHILLIP, DDD, chronic back pain, osteopenia, who presented to the emergency room with right-sided back pain. Now admitted to the hospital for further evaluation, management of right-sided nephrolithiasis. Nephrolithiasis/lower back pain -Leukocytosis, afebrile. -S/p IV morphine times 2 g x 2 doses, IV NS bolus x1 L, and IV ceftriaxone 2 g in the ED. * Admit to MedSurg * N.p.o. * Continue IV ceftriaxone 2 g every 24 hours * Tamsulosin 0.4 mg every morning * Maintenance IV LR@125 mL/h * IV Tylenol 1000 mg every 8 hours for pain; IV Dilaudid for breakthrough pain * IV Zofran for nausea Hypokalemia -K+ 3.0 on admission. S/p 40 mEq KCl p.o. in the ED. * Ordered additional KCl 40 mEq to be given this morning. * Recheck on a.m. labs. Replete as indicated. Vitamin D deficiency/osteopenia -Chronic. Managed on Citracal + D maximum, Tymlos. -Citracal held on admission. * Continue home abaloparatide Osteoarthritis/degenerative disc disease -Chronic. Managed on as needed methocarbamol, meloxicam, Tylenol. Stopped on admission. * Pain management as above Code: Full code Dispo: Med-Surg FEN/GI: NPO. LR @maintenance rate DVT Prophylaxis: Heparin 5000 u q12h PT/OT: Yes Consults: Urology Case Management: No (2) Low back pain: (3) Osteopenia: (4) Degeneration of cervical intervertebral disc: (5) Vitamin D deficiency: (6) Vitamin B12 deficiency: History of Present Illness Primary Care Provider: Hammad Soria MD Stefanie is an 82-year old woman with a PMH of osteoarthritis, degenerative disc disease (s/p lumbar, spinal surgery), chronic back pain, and osteopenia, who presents with right-sided lower back pain. She has chronic pain at baseline. However, her pain "became unbearable" today. The pain does not radiate to her abdomen or her groin. ROS+ nausea as well. She denies headache, SOB, chest pain, vomiting, diarrhea, or dysuria. In the ED, vital signs were notable for tachycardia but was afebrile. Labs revealed leukocytosis (WBC-16.18), hypokalemia (K3.0), and trace leukocyte esterase on UA. CT lumbar spine revealed 9 x 5 mm proximal mid ureteral stone with moderate hydroureteronephrosis on the right, as well as a left-sided mild hydronephrosis without an obvious collecting stone. She received a 1 L bolus of normal saline, IV Zofran, a dose of IV Ceftriaxone 2 g, Tamsulosin, IV morphine 2 g x2, and 40 mEq of potassium chloride. Urology was consulted for evaluation, management recs in the ED. Hospitalist service was then consulted for admission. Allergies Allergy/AdvReac Type Severity Reaction Status Date / Time codeine AdvReac Mild NAUSEA/VOMI Verified 02/21/23 23:25 T morphine AdvReac Mild NAUSEA/VOMI Verified 02/21/23 23:25 T Home Medications Medication Instructions Recorded Confirmed Type peg 400-propylene glycol (PF) 0.4 1 drp ophthalmic (eye) BID PRN Dry 05/21/19 02/21/23 History %-0.3 % eye drops in a dropperette Eyes (Systane (PF)) abaloparatide (Tymlos) 80 mcg subcut HS 02/21/23 02/21/23 History acetaminophen 500 mg tablet 500 mg PO Q6H PRN Fever Or Pain 02/21/23 02/21/23 History calcium citrate 315 mg 1 tab PO QAM 02/21/23 02/21/23 History calcium-vitamin D3 6.25 mcg (250 unit) tablet (Citracal + Vitamin D Maximum) cyanocobalamin (vitamin B-12) 1,000 mcg PO QAM 02/21/23 02/21/23 History 1,000 mcg tablet (Vitamin B-12) meloxicam 15 mg tablet 15 mg PO HS 02/21/23 02/21/23 History methocarbamol 500 mg tablet 250 mg PO DAILY PRN Pain 02/21/23 02/21/23 History vit C 250 mg-vit E 90 mg-zinc 40 1 tab PO AMHS 02/21/23 02/21/23 History mg-copper 1 [id number] capsule (PreserVision AREDS-2) Past Med/Surg History Medical History (Updated 02/23/23 @ 10:35 by Glen Farooq MD) Adenocarcinoma of lung Per chest CT 12/08/18: "No evidence for recurrent malignancy status post left upper lobectomy." Degenerative disc disease Dry eye syndrome Osteoarthritis Psoriasis Pulmonary nodule Surgical History Family history of reaction to anesthesia MOTHER, SISTER AND DAUGHTER NAUSEA Fusion of spine 4 LUMBAR FUSIONS (TOTAL 3-4 BACK SURGERIES) H/O cervical spine surgery GOOD ROM H/O foot surgery LEFT H/O wrist surgery RT History of arthroscopy RT KNEE History of bilateral tubal ligation History of cataract surgery RT/LEFT History of colonoscopy History of dilatation and curettage History of herniorrhaphy History of lobectomy of lung UPPER LEFT LOBE History of shoulder surgery RT REVERSAL TSA History of tooth extraction Nausea and vomiting after administration of anesthetic agent S/P hip replacement Family History Other No significant family history Social History Smoking Status: Former smoker Tobacco Type: Cigarettes Cigarettes Per Day: 20; Smoking End Date: unknown, many years ago; Second Hand Exposure: No; Do You Dip or Chew Tobacco: No; Hx Alcohol Use: No Hx Substance Use: No Preferred Language: Canadian Communication Ability: Effective Communication Tools: Other 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 Review of Systems Review of Systems: All systems reviewed & are unremarkable except as noted in HPI & below Physical Exam Physical Exam: General: No acute distress HEENT: PERRLA. Normal conjunctiva, anicteric sclera. Oropharynx normal. Respiratory: Normal respiratory effort. Mild bibasilar crackles. No rhonchi or wheezes heard. Cardiovascular: Tachycardic rate. Regular rhythm. No murmurs, gallops, or rubs. No pedal edema. GI: Moderate RUQ tenderness to palpation. Mild right lower back tenderness to palpation. No flank tenderness elicited. Neuro: Alert and oriented x3. Results & Data Results & Data Vital Signs (Past 12 Hours) Vital Signs Temp Pulse Pulse Resp BP BP Pulse Ox 02/21/23 23:47 108 H 22 146/90 H 98 02/21/23 20:55 102 H 02/21/23 21:13 103 H 22 179/76 H 97 02/21/23 19:52 36.2 C L 120 H 18 195/95 H 98 O2 Del Method O2 Flow Rate 02/21/23 23:47 Nasal Cannula 02/21/23 20:55 02/21/23 21:13 Nasal Cannula 2 02/21/23 19:52 Room Air Supervising Physician Co-Signing Physician Notes Attending addendum: I have physically seen this patient, have supervised the medical residents activities, and agree with the H&P unless as otherwise noted. Assessment and Plan: 5 x 9 mm right ureteral stone/moderate hydroureteronephrosis- N.p.o. Follow urine culture and sensitivity Ceftriaxone 2 g IV daily Tamsulosin 0.4 mg daily LR at 125 mils per hour Acetaminophen 1 g IV every 8 hours as needed for mild pain or fever IV Dilaudid every 3 hours as needed moderate to severe pain Zofran 4 mg IV every 6 hours as needed Hypokalemia- Potassium 3.0 plan admission Supplementation as noted repeat laboratories in a.m. Remaining orders and notations as noted Resident Activity Tracking Resident Involvement: Resident Care Provided Care Provided: Adult Hospital Medicine
[2023-02-22] MEDS ORDERED: ONDANSETRON INJ 2 MG/ML 2 ML VIAL IV PRN (01:28)
[2023-02-22] MEDS ORDERED: HYDROmorphone INJ 0.5 MG/0.5 ML SYR IV PRN (01:28)
[2023-02-22] MEDS ORDERED: ACETAMINOPHEN 1,000 MG/100 ML VIAL IV PRN (01:28)
[2023-02-22] MEDS ORDERED: ARTIFICIAL TEARS OP PRN (01:48)
[2023-02-22] MEDS: LACTATED RINGER'S 1,000 ML IV SCH ×3 (01:49→18:24)
[2023-02-22 07:03] LABS: Hematocrit (blood only) 32.9 % (37.0-47.0); Mean Corpuscular Hemoglobin 29.1 pg (25.0-34.0); Mean Corpuscular Hgb Conc 33.4 g/dL (32.0-36.0); Mean Platelet Volume 10.2 fL (9.4-12.4); Platelet Count 211 K/uL (130-400); RDW Coefficient of Variation 13.4 % (11.5-14.5); RDW Standard Deviation 42.8 fL (36.4-46.3); Red Blood Count 3.78 M/uL (4.20-5.40); White Blood Count 12.85 K/ul (4.8-10.8)
--- NOTE | 2023-02-22 07:18 | Hospitalist Progress Note ---
Date of Service February 22, 2023 Assessment & Plan (1) Nephrolithiasis: Plan: Pt is an 82 yo female with PMH of PHILLIP, DDD, chronic back pain, osteopenia, who presented to the emergency room with right-sided back pain secondary to kidney stone. Updates from this morning: repeat CT was negative for stone, urology recommending just medical management now PM discussion: Pt was seen in the PM today and states that her pain has been minimal. She states that her pain last night on the R back and flank was different than her typical chronic pain that tends to be more in the middle of her lumbar spine and adjacent paraspinal muscles. She states that last night felt different and that perhaps her pain this morning was more in line with her chronic pain, and it has been well managed on the dilaudid she has been getting here. Also noted that when initially arrived, her saturation was 77% while off oxygen and she had some increased work of breathing, as she had just come back from the bathroom. As she relaxed, her saturation stabilized around 88-92% on room air and pt denied feeling SOB. Son in the room noted that she has had to stop to catch her breath more in the last year. Due to noted smoking history and pt feeling well at 88% saturation, likely a chronic issue such as COPD that thus far has gone undiagnosed due to adequate compensation. Regardless, in the setting of lower saturations and noted pulm edema on CXR, will do TTE and get pulmonary function. Remaining back pain likely chronic MSK in nature. Will reassess in the morning. Likely D/C tomorrow. Nephrolithiasis/lower back pain -Leukocytosis, afebrile. - Initial CT noted [id number] stone in R ureter, repeat CT today showed no stone -S/p IV morphine times 2 g x 2 doses, IV NS bolus x1 L, and IV ceftriaxone 2 g in the ED. - awaiting urology recommendations Hypokalemia -K+ 3.0 on admission. S/p 40 mEq KCl p.o. in the ED. * Ordered additional KCl 40 mEq to be given this morning. * Recheck on a.m. labs. Replete as indicated. * today 4.3 Vitamin D deficiency/osteopenia -Chronic. Managed on Citracal + D maximum, Tymlos. -Citracal held on admission. * Continue home abaloparatide Osteoarthritis/degenerative disc disease -Chronic. Managed on as needed methocarbamol, meloxicam, Tylenol. Stopped on admission. Code: Full code Dispo: Med-Surg DVT Prophylaxis: Heparin 5000 u q12h PT/OT: Yes Consults: Urology Case Management: No (2) Low back pain: (3) Osteopenia: (4) Degeneration of cervical intervertebral disc: (5) Vitamin D deficiency: (6) Vitamin B12 deficiency: Admission and Anticipated Discharge Date Admission Date: February 22, 2023 Supervising Physician Co-Signing Physician Notes I personally examined the patient and verified all thurston points of history and exam, discussed case, and agree with decision making with Dr Jaime Had significantly different back pain last nightmore intense than anything she is ever felt, had associated nausea, was to the right of center, was exceedingly intense, and now has resolved. Chronic back pain that has been slowly worsening is largely midline, severe in intensity but nothing like what she was feeling last night, seems to be somewhat different in quality although patient has a hard time voicing this, and does not seem to radiateand this seems to be what she is still feeling nownotes that has been going on since probably October. Incidentally noted to be mildly hypoxic on room air with a little bit of labored breathingshe abject that he denies any shortness of breath, and her son notes that probably over the last year he has seen her breathing slowly deteriorate. She has a hard time quantifying her pack-years, but it seems like she smoked somewhere between age 13 to may be 17 for onset and quit somewhere between age [age]. Son present at the bedside, all questions answered to the best my ability and to patient and son's satisfaction. Vitals noted, in general she is awake and alert pleasant no distress, although she does have mildly labored breathing although denies shortness of breath and the son notes that is how her breathing has been recently. HEENT normocephalic atraumatic mucous membranes moist. Breathing as above noted. No accessory mus xena use/conversational dyspnea, of note while we are talking I have her stay on room air and she bounces between 88-93% (most often at 9091) without a hint of dyspnea. Musculoskeletal/osteopathic shows her right sided lower thoracic and the lumbar paraspinals to be high tone, tender, decreased range of motion. Skin shows no rashes no pallor or icterus. Acute right flank paingiven her intense pain that was out of proportion to anything she is felt before, it was apparently (although she has a hard time describing quality) different in someway, was definitely to the right, was associated with nausea and vomiting, and abruptly resolvedI suspect she passed the kidney stone that was seen on her L-spine CT scanhence the resolution of hydronephrosis as well. I do think she has musculoskeletal pain chronically, but the acute pain seems very different and now gone. No further intervention needed, although since she is going to be in the hospital to get her other problems moving in the right direction, obviously follow this closely. Chronic back painwith subacute worseningshe examines that it is probably heavy muscular overlay superimposed on chronic spinal disease. I suspect she would probably do well with treatments directed at calming the tight muscle related painVoltaren gel, she has a TENS unit at home, and I suspect she would be a patient who would probably do quite well with OMT directed at loosening her paraspinals and surrounding musculature. We will work on setting this up after discharge. Labored breathing and mild relative hypoxiagiven her overall appearance, and small amounts of emphysema on CT scan, and hard to define but probably at least 48-18-joig-year history of smokingI suspect she has some degree of COPD probably; and potentially lung volumes are worse since she had to have a lobectomy in the past. She does have small pleural effusions, but no pulmonary edemaso I highly doubt a cardiac source, but given the mild troponin (likely demand given the severity of the pain with kidney stone) we will check an echocardiogrambut more importantly will start to manage as COPD. Asked respiratory therapy if we would be able to get basic spirometry while she is in the hospitalunfortunately due to equipment issues this was not able to be done, but the respiratory therapist was kind enough to do serial peak flowsall of which were markedly lower than predictedat least as a "poor man's FEV1" combined with a high clinical suspicion of COPDthis gives enough focus to start empiric treatment until we are able to get formal PFTs. We will start with triple inhaler therapy, and likely will need home oxygen for at least the time being, and then follow-up with PCP to see if oxygen can be weaned as the inhaler start to take effect, and get PFTs. DVT prophylaxisheparin subcu Subjective Pt is an 82 yo female with PMH of PHILLIP, DDD, chronic back pain, osteopenia, who presented to the emergency room with right-sided back pain secondary to kidney stone. Today, pt states she is feeling well. She states her back pain greatly improved with the dilaudid she was given, and now is more dull. She otherwise denies any other complaints such as chest pain, SOB, nausea, vomiting, or chills. She states she is concerned that if they don't place a stent that passing the stone will be quite painful and the pain may not be controlled at home. Otherwise, no further questions or complaints at this time. Review of Systems Review of Systems: Per HPI. Physical Exam Physical Exam: General:Alert and oriented, no acute distress, Cardio: Regular rate and rhythm, Resp:Lungs clear to auscultation b/l, GI: Soft and nontender, nondistended, bowel sounds active Skin: Warm, pink, dry, Psych: Mood-affect congruence. Results & Data Results & Data Vital Signs (Past 12 Hours) Vital Signs Temp Pulse Pulse Pulse Resp BP BP 02/22/23 07:03 36.7 C 95 H 20 115/66 02/22/23 02:00 02/22/23 01:30 02/22/23 01:30 36.5 C 113 H 20 138/87 02/22/23 01:30 02/22/23 01:34 36.5 C 113 H 20 138/87 02/22/23 00:49 95 H 02/22/23 00:48 88 17 114/78 02/21/23 23:47 108 H 22 146/90 H 02/21/23 20:55 102 H 02/21/23 21:13 103 H 22 179/76 H 02/21/23 19:52 36.2 C L 120 H 18 195/95 H Pulse Ox O2 Del Method O2 Flow Rate 02/22/23 07:03 97 Nasal Cannula 2 02/22/23 02:00 96 Nasal Cannula 2 02/22/23 01:30 Nasal Cannula 4 02/22/23 01:30 96 Nasal Cannula 4 02/22/23 01:30 96 Nasal Cannula 4 02/22/23 01:34 96 Nasal Cannula 4 02/22/23 00:49 02/22/23 00:48 Nasal Cannula 4 02/21/23 23:47 98 Nasal Cannula 02/21/23 20:55 02/21/23 21:13 97 Nasal Cannula 2 02/21/23 19:52 98 Room Air Resident Activity Tracking Resident Involvement: Resident Care Provided Care Provided: Adult Hospital Medicine
--- NOTE | 2023-02-22 08:10 | Urology Progress Note ---
Date of Service February 22, 2023 Assessment & Plan (1) Right-sided back pain: (2) Hydronephrosis: (3) Right ureteral stone: Plan 82yo F admitted with right sided back/flank pain and nausea - Afebrile and hemodynamically stable. - Labs reviewed - WBC 12.85, Creatinine 0.62. - UA not suggestive of infection. Blood cultures pending. On Ceftriaxone. - Lumbar spine CT shows a 5 x 9 mm proximal to mid right ureteral stone with at least moderate hydroureteronephrosis and mild left hydronephrosis without obvious collecting stone, where visible. Detailed evaluation limited. - Will obtained dedicated CT abd pelvis imaging for further evaluation. - Keep NPO. - Additional recommendations pending imaging. - Continue supportive care, pain management, and tamsulosin. - Urology to follow. - Patient agreeable to plan, all questions were answered. - Patient reassessed this morning with Dr. Trejo. - CT abdomen pelvis reviewed in detail with patient and family. No obstructing stones or hydronephrosis visualized on imaging. The previously noted hydronephrosis appears to have resolved. - Therefore, no need for urological intervention. - She can have a diet back from standpoint. - Discussed with hospital team. May need to consider other etiologies of pain, possibly musculoskeletal. - Urology will follow. Admission and Anticipated Discharge Date Admission Date: February 22, 2023 Supervising Physician Co-Signing Physician Notes Saw patient personally. Had a long conversation with her and her daughter. Reviewed her lumbar CT scan which does show hydronephrosis. I do not see an obvious stone. I recommended that we get a dedicated CT scan of the abdomen pelvis which I independently reviewed. This does not show any hydronephrosis and does not show any obvious stone. The collecting systems are opacified with previous contrast but again I do not see any filling defects or any noted obstruction. I discussed this with the patient and her daughter and I believe that her back pain is likely musculoskeletal in nature given the location on exam and her history of previous back pain and surgeries. No urologic interv ention necessary at this point. Subjective Patient examined at bedside this AM. Awake, resting in bed on arrival. No acute distress. Reports right-sided back/flank pain, improved since arrival and managing with medication. She does report chronic back pain issues at baseline. Denies fevers, chills, nausea, vomiting. Voiding without issue, denies hematuria or dysuria. Feels she is emptying her bladder. Has been NPO. Review of Systems Constitutional: as per Subjective / HPI Gastrointestinal: as per Subjective / HPI Genitourinary: as per Subjective / HPI Physical Exam Constitutional: no acute distress Respiratory: no respiratory distress and no labored breathing Skin: No visible rashes or lesions to exposed skin areas Neurologic: moves all extremities and awake Psychiatric: A+Ox3, euthymic affect Results & Data Vital Signs (Past 12 Hours) Vital Signs Temp Pulse Pulse Pulse Resp BP BP 02/22/23 07:20 02/22/23 07:03 36.7 C 95 H 20 115/66 02/22/23 02:00 02/22/23 01:30 02/22/23 01:30 36.5 C 113 H 20 138/87 02/22/23 01:30 02/22/23 01:34 36.5 C 113 H 20 138/87 02/22/23 00:49 95 H 02/22/23 00:48 88 17 114/78 02/21/23 23:47 108 H 22 146/90 H 02/21/23 20:55 102 H 02/21/23 21:13 103 H 22 179/76 H Pulse Ox O2 Del Method O2 Flow Rate 02/22/23 07:20 Nasal Cannula 2 02/22/23 07:03 97 Nasal Cannula 2 02/22/23 02:00 96 Nasal Cannula 2 02/22/23 01:30 Nasal Cannula 4 02/22/23 01:30 96 Nasal Cannula 4 02/22/23 01:30 96 Nasal Cannula 4 02/22/23 01:34 96 Nasal Cannula 4 02/22/23 00:49 02/22/23 00:48 Nasal Cannula 4 02/21/23 23:47 98 Nasal Cannula 02/21/23 20:55 02/21/23 21:13 97 Nasal Cannula 2 PG Care Time/CCT Total # of Minutes Spent Total Time Spent with Patient: Total time spent is greater than 50% in coordination of care (as documented) at patient's floor/unit and/or counseling patient: Coding Level of Care Code 40209 SUB INP/OBS CARE 2/35MIN Diagnoses Right-sided back pain M54.9 Hydronephrosis N13.30 Right ureteral stone N20.1
[2023-02-22 08:14] LABS: BUN Creatinine Ratio 33.9 (10-20); Calcium 8.6 mg/dl (8.6-10.3); Creatinine Clr Calc Pharmacy 53.1 ml/min; Est GFR (African American) 96.6 ml/min; Est GFR (Non-African American) 83.4 ml/min; Magnesium 1.7 mg/dl (1.7-2.4); Potassium 4.3 mmol/L (3.5-5.1)
[2023-02-22] MEDS ORDERED: POTASSIUM CHLORIDE CRTAB 20 MEQ TABCR PO SCH (09:00)
[2023-02-22] MEDS ORDERED: TAMSULOSIN HCL 0.4 MG CAP PO SCH (09:00)
[2023-02-22] MEDS: HYDROmorphone INJ 0.5 MG/0.5 ML SYR IV PRN ×2 (09:16→21:05)
[2023-02-22] MEDS: CYANOCOBALAMIN (B-12) 500 MCG TABLET PO SCH (09:38)
[2023-02-22] MEDS: HEPARIN SOD 5,000 UNIT/0.5 ML VIAL SQ SCH ×2 (09:39→21:55)
--- NOTE | 2023-02-22 09:43 | CT Scan Report ---
CT abd pelvis wo con CLINICAL HISTORY: bilateral hydronephrosis, ureteral calculus TECHNIQUE: Helical axial images of the abdomen and pelvis were obtained. Automated dose lowering tech niques and/or adjustment according to patient size were utilized for this exam. This exam was perfor med without intravenous contrast. CT DOSE: 572.70 mGy.cm COMPARISON: Comparison is made to CT abdomen pelvis 08/24/2022 FINDINGS: Lower chest: Bibasilar atelectasis versus scarring is seen. Small bilateral pleural effusions Liver: Unremarkable. No focal lesions are seen. Gallbladder and biliary tree: Vicarious excretion of contrast is seen. No intra- or extrahepatic bili jacob ductal dilation. Pancreas: Unremarkable, no focal lesions. Spleen: Unremarkable. Adrenals: Unremarkable. Kidneys and ureters: Renal cysts are seen. Bladder: Numerous bladder diverticula are seen. Reproductive organs: Prostatic calcifications are seen which may represent prior hemorrhage or granul omatous disease. Bowel: Unremarkable. Lymph nodes Retroperitoneal: Unremarkable. Pelvic: Unremarkable. Mesenteric: Unremarkable. Peritoneum: Normal. Vessels: Atherosclerotic calcifications are seen. Abdominal wall: Unremarkable. Bones: Posterior fixation hardware is seen in the lumbar spine. Left total hip arthroplasty is seen. Right medullary nail is seen. Compression deformity of L1 is unchanged. IMPRESSION: No hydronephrosis is seen. Bilateral ureters are unremarkable. 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 ACT 112: Negative or not required by law. Electronically signed by: Francisco James M.D. 02/22/2023 9:41 AM
--- NOTE | 2023-02-22 12:43 | Electrocardiogram Report ---
Test Reason : Blood Pressure : / mmHG Vent. Rate : 107 BPM Atrial Rate : 107 BPM P-R Int : 154 ms QRS Dur : 084 ms QT Int : 342 ms P-R-T Axes : 078 036 092 degrees QTc Int : 456 ms Sinus tachycardia with Premature supraventricular complexes Minimal voltage criteria for LVH, may be normal variant Nonspecific ST and T wave abnormality Abnormal ECG When compared with ECG of 01-JUN-2019 09:54, Premature supraventricular complexes are now Present Vent. rate has increased BY 49 BPM Non-specific change in ST segment in Inferior leads ST now depressed in Lateral leads Nonspecific T wave abnormality now evident in Anterolateral leads Confirmed by Hammad Rocha ([id number]) on 02/22/2023 12:43:15 PM Referred By: REFERRED SELF Confirmed By:Hammad Rocha
[2023-02-22] MEDS ORDERED: cefTRIAXone SODIUM 2,000 MG in DEXTROSE 5% 50 ML IV SCH (16:00)
[2023-02-22] MEDS: DICLOFENAC SOD 1% GEL 100 GM TUBE EXT SCH ×2 (17:24→21:56)
--- NOTE | 2023-02-22 18:33 | Billing Data ---
Date of Service February 22, 2023 Coding Level of Care Code 08141 SUB INP/OBS CARE MIN
--- NOTE | 2023-02-23 07:30 | Discharge Summary ---
Date of Service February 23, 2023 Admission HPI Per Admitting Provider Stefanie is an 82-year old woman with a PMH of osteoarthritis, degenerative disc disease (s/p lumbar, spinal surgery), chronic back pain, and osteopenia, who presents with right-sided lower back pain. She has chronic pain at baseline. However, her pain "became unbearable" today. The pain does not radiate to her abdomen or her groin. ROS+ nausea as well. She denies headache, SOB, chest pain, vomiting, diarrhea, or dysuria. In the ED, vital signs were notable for tachycardia but was afebrile. Labs revealed leukocytosis (WBC-16.18), hypokalemia (K3.0), and trace leukocyte esterase on UA. CT lumbar spine revealed 9 x 5 mm proximal mid ureteral stone with moderate hydroureteronephrosis on the right, as well as a left-sided mild hydronephrosis without an obvious collecting stone. She received a 1 L bolus of normal saline, IV Zofran, a dose of IV Ceftriaxone 2 g, Tamsulosin, IV morphine 2 g x2, and 40 mEq of potassium chloride. Urology was consulted for evaluation, management recs in the ED. Hospitalist service was then consulted for admission. Discharge Data Consultations 02/21/23 22:16 Consult Urology Routine 02/21/23 23:00 ED Decision to Admit Stat
[2023-02-23] MEDS ORDERED: FUROSEMIDE 40 MG/4 ML VIAL IV ONE (08:30)
[2023-02-23] MEDS: DICLOFENAC SOD 1% GEL 100 GM TUBE EXT SCH ×4 (08:41→21:40)
[2023-02-23] MEDS: CYANOCOBALAMIN (B-12) 500 MCG TABLET PO SCH (08:42)
[2023-02-23] MEDS: HEPARIN SOD 5,000 UNIT/0.5 ML VIAL SQ SCH ×2 (08:42→21:40)
[2023-02-23] MEDS: FLUTICASONE/VILANTEROL 100/25MCG 14 PUFFS/INHALER INH SCH (08:44)
[2023-02-23] MEDS: UMECLIDINIUM BROMIDE 62.5MCG/BLISTER 7 PUFFS/INHALER INH SCH (08:44)
[2023-02-23 08:45] LABS: Basophils % (auto) 0.9 %; Eosinophils # (auto) 0.11 K/uL (0-0.50); Hematocrit (blood only) 34.8 % (37.0-47.0); Hemoglobin 11.7 g/dl (12.0-16.0); Immature Granulocytes # (auto) 0.03 K/uL (0.01-0.20); Immature Granulocytes % (auto) 0.3 %; Lymphocytes # (auto) 1.25 K/uL (1.2-3.4); Lymphocytes % (auto) 11.4 %; Mean Corpuscular Hemoglobin 29.5 pg (25.0-34.0); Mean Corpuscular Hgb Conc 33.6 g/dL (32.0-36.0); Mean Corpuscular Volume 87.7 fL (80.0-100.0); Monocytes # (auto) 0.93 K/uL (0.11-0.59); Monocytes % (auto) 8.4 %; Neutrophils # (auto) 8.59 K/uL (1.40-6.50); Platelet Count 212 K/uL (130-400); RDW Coefficient of Variation 13.4 % (11.5-14.5); RDW Standard Deviation 43.3 fL (36.4-46.3); Red Blood Count 3.97 M/uL (4.20-5.40); White Blood Count 11.01 K/ul (4.8-10.8)
--- NOTE | 2023-02-23 08:58 | Hospitalist Progress Note ---
Date of Service February 23, 2023 Assessment & Plan (1) Nephrolithiasis: (2) Low back pain: (3) Osteopenia: (4) Degeneration of cervical intervertebral disc: (5) Vitamin D deficiency: (6) Vitamin B12 deficiency: Plan 82 y/o female with PMHx vitamin D deficiency, osteopenia, and OA was admitted due to back pain. Lumbar CT showed hydronephrosis and renal calculus in the right kidney. Since admission the patient has passed the stone and her remaining pain is likely due to chronic back pain or musculoskeletal origin. She was noted to have dyspnea with accessory muscle use, which the son indicates has been present and progressing for the last few months. Patient has denies feeling significant SOB, chest pain, palpitations, weakness, or any other symptom. CTA performed due to SOB showed findings consistent with interstitial pulmonary edema and a small layering bilateral pleural effusions. Findings were not very suggestive of infection. Cardiac chambers were also noted to be borderline prominent with moderate coronary artery calcification. Today her vital signs show stable BP and saturation on nasal cannula at 4 lpm. She has remained afebrile. Her labs are showing mild leukocytosis following a decreasing trend with neutrophilia. Hb is stable at 11.7 with Hct at 34.8 and MCV at 87.7. Her electrolytes and renal function have remained within reference range. Today, her troponin increased to 54. EKG showed tachycardia and no ST segment elevations. Afternoon visit: Patient now much better in terms of her breathing after 40mg of IV Lasix. She is currently on nasal cannula at 4 lpm with no dyspnea. She is able to walk to the bathroom and took her nasal cannula off to go, and seemed a little breathless when she returned to the bed but was not in the state she was in this morning. She refers having some back pain that was managed with topical ketorolac with successful control of her pain. Her recent findings on her TTE and her chest imaging was discussed, as well as the possibility of a chronic lung disease that led to a possible non-ischemic cardiomyopathy. The association between her pulmonary state and her current cardiac state was discussed as well as the changes that she would likely have to consider in her lifestyle. These included a diet that was low in sodium (since she is fond of salty foods) to prevent exacerbation of possible cardiomyopathy. The possibility of having to be discharged with home oxygen was also discussed, as well as the usual process to get this set up with respiratory therapy. All questions were answered and she and her daughter expressed understanding to what was discussed. Nevertheless, they were encouraged to notify us if they have any additional questions or would like to have any doubt or concern cleared up. Pulmonary Edema - CTA showing findings consistent with interstitial pulmonary edema - 02/23/2023 with mild respiratory distress - Lasix 40mg IV given due to fluid overload with improvement of symptoms * If SOB is persistent or if patient develops dyspnea on ambulation, will consider ordering CXR to assess etiology Possible Non-Ischemic Cardiomyopathy - Echocardiogram (TTE) done (02/23/2023) * Severely reduced EF (25-30%) * Global hypokinesis - Likely began around 6 months ago and possibly progressed to her current state. - Consulted Cardiology * Need to look for reversible causes * Protein abnormalities * Lyme * Viral etiology is likely * Favoring pharmacologic stress test next week rather than a cardiac catheterization to check for ischemic cause * Start patient on low-dose carvedilol and Entresto with plans to titrate if possible. Pulmonary HTN - Echocardiogram (TTE) showed RVSP of 66 mmHg - Cardiology recommendations: * Likely due to combination of history of lung disease and elevated LV end- diastolic pressure * Repeat measurement after fluid status is corrected and she is on HF medications Nephrolithiasis/lower back pain - Leukocytosis following a decreasing trend (11.01 today), afebrile. - Initial CT noted [id number] stone in R ureter, repeat CT showed no stone - S/p IV morphine times 2 g x 2 doses, IV NS bolus x1 L, and IV ceftriaxone 2 g in the ED. - Urology states back pain is likely musculoskeletal in nature; no urologic intervention required Hypokalemia -K+ 3.0 on admission. S/p 40 mEq KCl p.o. in the ED. * Ordered additional KCl 40 mEq to be given this morning. * Recheck on a.m. labs. Replete as indicated. * today 4.0 Vitamin D deficiency/osteopenia -Chronic. Managed on Citracal + D maximum, Tymlos. -Citracal held on admission. * Continue home abaloparatide Osteoarthritis/degenerative disc disease -Chronic. Managed on as needed methocarbamol, meloxicam, Tylenol. Stopped on admission. Code:Full code Dispo:Med-Surg DVT Prophylaxis:Heparin 5000 u q12h PT/OT:Yes Consults:Urology, Cardiology Admission and Anticipated Discharge Date Admission Date: February 22, 2023 Supervising Physician Co-Signing Physician Notes I personally examined the patient and verified all thurston points of history and exam, discussed case, and agree with decision making with Dr Montero Seen multiple times today. This morning called due to shortness of breath labored breathing tachycardia and increased oxygen requirement. Later revisited after she was feeling better (see below under pulmonary edema) and had extensive discussion with patient and daughter outlining entirety of diagnoses and plans moving forward. Vitals noted, this morning she was in mild distress somewhat tachycardic escalated to 4 L, faint scattered rales diminished air entry throughout, this afternoon she is breathing unlabored, looking very calm and restful, still on 4 L but absolutely no respiratory distress or conversational dyspnea. Right-sided lumbar paraspinal high tone, tender, decreased range of motion. Direct myofascial with some improvement, put Voltaren gel on personally as well. Echocardiogram noted, cardiology input greatly appreciated. Acute pulmonary edemaimproved with 40 mg of Lasix, appears to have an acute on chronic systolic CHFsee below as far as her chronic cardiomyopathy, the acute was most likely physiologic stress from the pain of the kidney stone leading to decompensation. On revisit this improved. Chronic dyspneaI suspect more from COPD from then from her cardiomyopathy, but probably elements of both COPDI was unable to get true pulmonary function tests in the hospital, certainly they will need to be done as an outpatient, but between her CT scan, her history, her smoking history, and her low peak flowsstrongly suspicious of fairly significant COPD. Added triple therapy for inhalers, likely to need supplemental oxygencertainly does at this point in time. Pulmonary hypertension almost certainly secondary to this predominantly, although could be somewhat due to her reduced LV function dilated cardiomyopathyLasix acutely as above, Entresto/coreg started by cardiology, I agree that it is reassuring that it is a global hypokinesis rather than focal, stress testing on Saturday. Discussed sodium restriction. Acute on chronic back painsubacute worseningdefinitely have a muscle overlay, Voltaren gel, TENS unit at home, read discussed that a trial of OMT would likely be beneficial suspect she passed a kidney stone as her reason for presentation, but all of the above was slowly decompensating over the last 6-12 months. Approximately 90 minutes spent in the room today. this morning visit ~830, this afternoon ~2-315p Subjective Pt is an 82 yo female with PMH of PHILLIP, DDD, chronic back pain, osteopenia, who presented to the emergency room with right-sided back pain secondary to kidney stone. This morning she was tachycardic and nursing reported she was feeling SOB. EKG showed sinus tachycardia and no ST elevations. Her pain has been improved. No other concerns presented at this time. Review of Systems Review of Systems: Per HPI. Physical Exam Physical Exam: General: Alert. Oriented to person, time, and place. Afebrile. No acute distress. Eyes: pupils equal and reactive to light bilaterally, extraocular movements intact. Cardiac: Regular rate and rhythm, no murmurs/rubs/gallops. Respiratory: B/l rales, mild respiratory distress Abdomen: Soft, nontender, nondistended. Bowel sounds present. Lower Extremities: No lower extremity edema or swelling. No deep calf pain. Varsha's negative bilaterally. Psych: Euthymic affect. Mood and affect congruence. Regular speech rate and content. Results & Data Results & Data Vital Signs (Past 12 Hours) Vital Signs Temp Pulse Resp BP Pulse Ox O2 Del Method O2 Flow Rate 02/23/23 07:51 36.6 C 120 H 18 172/93 H 97 Nasal Cannula 3 02/23/23 06:17 36.7 C 99 H 16 164/80 H 94 Nasal Cannula 2 02/22/23 21:02 36.7 C 101 H 18 151/88 H 95 Room Air
[2023-02-23 09:06] LABS: BUN Creatinine Ratio 32.2 (10-20); Calcium 9.1 mg/dl (8.6-10.3); Creatinine Clr Calc Pharmacy 55.8 ml/min; Est GFR (African American) 98.2 ml/min; Est GFR (Non-African American) 84.8 ml/min
--- NOTE | 2023-02-23 09:15 | XCELERA ---
[id number]
[2023-02-23 09:16] LABS: Troponin I High Sensitivity 54.9 pg/ml (0-14)
--- NOTE | 2023-02-23 09:35 | Cardiology Consultation ---
Date of Consultation February 23, 2023 Assessment & Plan (1) Cardiomyopathy: (2) Pulmonary edema: (3) Pulmonary hypertension: (4) Right-sided back pain: Plan 1. Cardiomyopathy: The cause of her cardiomyopathy is unclear, although ischemic would be the most common in her age group and with her risk factors she has very little going for that diagnosis. Her electrocardiogram does not show prior infarctions, she does not have symptoms of prior infarction and she does not have wall motion abnormalities. I suspect she has a nonischemic cardiomyopathy which probably started about 6 months ago and possibly progressed. We need to look for reversible causes such as protein abnor malities, etc. I will order those tests. I will check a Lyme titer, a viral infection may be the most likely but we cannot test for that. We will need to do something to look for ischemia but I would favor doing a pharmacologic stress test next week rather than a cardiac catheterization. I am going to start her on low-dose carvedilol and Entresto with plans to titrate if possible. 2. Pulmonary edema: Clinically she does not have a lot of CHF, it was identified on CT scanning and her symptoms of dyspnea on exertion are consistent. I agree with diuresis although she probably does not have a lot of fluid present. 3. Pulmonary hypertension: She has significant pulmonary hypertension which is probably a combination of lung disease and elevated left ventricular end- diastolic pressure. Once we get her fluid status controlled and have her on her heart failure medications we can repeat a measurement and see where it stands. It is unlikely it is reversible if it is related to her lung disease. 4. Right-sided back pain: This seems consistent with her known diagnoses of osteoarthritis and kidney stone. I do not think it represents angina, I believe her cardiomyopathy was identified while she was here but not related to her presentation. History of Present Illness Reason for Consultation: Cardiomyopathy Attending Physician: Abisai Butts, History of Present Illness This is an 82-year-old woman who has not had a lot of medical issues. She does have a history of osteoarthritis and degenerative disc disease and presented with lower back pain on February 21, 2023. This was associated with nausea and vomiting, a large ureteral stone was identified and was felt to be a cause of her symptoms. CT scanning also suggested pulmonary edema. An electrocardiogram done on presentation showed sinus tachycardia with premature atrial beats and nonspecific ST-T abnormality. No evidence of prior myocardial infarction. A repeat electrocardiogram February 23, 2023 at 08 16 looks very similar. An initial troponin measurement was slightly elevated at 38, repeated 36 hours later it was slightly higher at 55. An echocardiogram done February 23, 2023 at 7:22 AM showed top normal left ventricular size with severe left ventricular dysfunction in a global manner with an ejection fraction of 25 to 30%. Mild concentric left ventricular hypertrophy. The right ventricle is normal in size and function however severe pulmonary hypertension was identified with an estimated right ventricular systolic pressure of 66 mmHg. On closer questioning she has been having increasing shortness of breath over the last 6 months, it was especially severe for several days to week prior to admission which she attributed to her back difficulty and the pain from the kidney stone. She no longer smokes but was left with COPD but still remains very active and therefore was not too concerned about the shortness of breath. Apparently she continued to exercise and to do things that she normally does even though she was somewhat short of breath. She has had no chest discomfort, no lightheadedness or dizziness. She does not describe orthopnea or PND. She has had no peripheral edema or palpitations. Allergies Allergy/AdvReac Type Severity Reaction Status Date / Time codeine AdvReac Mild NAUSEA/VOMI Verified 02/21/23 23:25 T morphine AdvReac Mild NAUSEA/VOMI Verified 02/21/23 23:25 T Home Medications Medication Instructions Recorded Confirmed Type peg 400-propylene glycol (PF) 0.4 1 drp ophthalmic (eye) BID PRN Dry 05/21/19 02/21/23 History %-0.3 % eye drops in a dropperette Eyes (Systane (PF)) abaloparatide (Tymlos) 80 mcg subcut HS 02/21/23 02/21/23 History acetaminophen 500 mg tablet 500 mg PO Q6H PRN Fever Or Pain 02/21/23 02/21/23 History calcium citrate 315 mg 1 tab PO QAM 02/21/23 02/21/23 History calcium-vitamin D3 6.25 mcg (250 unit) tablet (Citracal + Vitamin D Maximum) cyanocobalamin (vitamin B-12) 1,000 mcg PO QAM 02/21/23 02/21/23 History 1,000 mcg tablet (Vitamin B-12) meloxicam 15 mg tablet 15 mg PO HS 02/21/23 02/21/23 History methocarbamol 500 mg tablet 250 mg PO DAILY PRN Pain 02/21/23 02/21/23 History vit C 250 mg-vit E 90 mg-zinc 40 1 tab PO AMHS 02/21/23 02/21/23 History mg-copper 1 [id number] capsule (PreserVision AREDS-2) Patient History Medical History (Updated 02/23/23 @ 10:35 by Glen Farooq MD) Adenocarcinoma of lung Per chest CT 12/08/18: "No evidence for recurrent malignancy status post left upper lobectomy." Degenerative disc disease Dry eye syndrome Osteoarthritis Psoriasis Pulmonary nodule Surgical History Family history of reaction to anesthesia MOTHER, SISTER AND DAUGHTER NAUSEA Fusion of spine 4 LUMBAR FUSIONS (TOTAL 3-4 BACK SURGERIES) H/O cervical spine surgery GOOD ROM H/O foot surgery LEFT H/O wrist surgery RT History of arthroscopy RT KNEE History of bilateral tubal ligation History of cataract surgery RT/LEFT History of colonoscopy History of dilatation and curettage History of herniorrhaphy History of lobectomy of lung UPPER LEFT LOBE History of shoulder surgery RT REVERSAL TSA History of tooth extraction Nausea and vomiting after administration of anesthetic agent S/P hip replacement Family History Other No significant family history Social History Smoking Status: Former smoker Tobacco Type: Cigarettes Cigarettes Per Day: 20; Smoking End Date: unknown, many years ago; Second Hand Exposure: No; Do You Dip or Chew Tobacco: No; Hx Alcohol Use: No Hx Substance Use: No Preferred Language: Faroese Communication Ability: Effective Try Out Person Required: Yes Beliefs That Will Affect Care: None marital status: / Current Living Situation: Alone Current Living Situation Comment: Lives alone at home current occupational status: retired Other Information That Helps Us Care for You: No Feels Safe at Home: Yes Safety Concerns: Feels Safe At This Time Dental Care, Regularly: No Physical Activity Frequency: 3-4 Times per Week Seatbelt Use: always Sunscreen Use: Yes Assistive Devices: None Assistive Devices Comment: reports just got hearing aids, has not used them yet. Review of Systems Review of Systems: All systems reviewed & are unremarkable except as noted in HPI & below Physical Exam Physical Exam: Constitutional: Alert, cooperative and in no distress. HEENT: Unremarkable Neck: No jugular venous distention, carotid pulses are normal and equal bilaterally without bruits. Pulmonary: Clear to auscultation bilaterally although with decreased breath sounds. Cardiac: Regular rhythm with no murmur, gallop or rub. Abdomen: Soft, nontender with normal bowel sounds. Extremities: No edema. Distal pulses intact. Neurologic: No focal findings. Gait is steady (assessed when she went to the bathroom). Skin: No rash, ecchymoses or petechiae. Results & Data Vital Signs (Past 12 Hours) Vital Signs Temp Pulse Resp BP Pulse Ox O2 Del Method O2 Flow Rate 02/23/23 09:23 36.5 C 111 H 16 132/72 97 Room Air, Nasal Cannula 4 02/23/23 07:51 36.6 C 120 H 18 172/93 H 97 Nasal Cannula 3 02/23/23 06:17 36.7 C 99 H 16 164/80 H 94 Nasal Cannula 2 Laboratory Results Cardiac Enzymes 02/23/23 Range/Units 08:30 Troponin I High Sens 54.9 H* D (0-14) pg/ml CBC 02/23/23 Range/Units 08:31 WBC 11.01 H (4.8-10.8) K/ul RBC 3.97 L (4.20-5.40) M/uL Hgb 11.7 L (12.0-16.0) g/dl Hct 34.8 L (37.0-47.0) % Plt Count 212 (130-400) K/uL Neut # (Auto) 8.59 H (1.40-6.50) K/uL Lymph # (Auto) 1.25 (1.2-3.4) K/uL Dawson # (Auto) 0.93 H (0.11-0.59) K/uL Eos # (Auto) 0.11 (0-0.50) K/uL Baso # (Auto) 0.10 (0-0.2) K/uL Comprehensive Metabolic Panel 02/23/23 Range/Units 08:30 Sodium 138 (136-145) mmol/L Potassium 4.0 (3.5-5.1) mmol/L Chloride 104 (98-107) mmol/L Carbon Dioxide 27 (21-32) mmol/L BUN 19 (6-23) mg/dl Creatinine 0.59 L (0.6-1.2) mg/dl Glucose 102 H (70-99(Fasting)) mg/dl Calcium 9.1 (8.6-10.3) mg/dl Intake and Output 02/22/23 02/23/23 02/23/23 22:59 06:59 14:59 Intake Total 1000 / 2099 Output Total 500 / 500 Balance 999 -500 / -500 Intake: IV 999 / 2099 Lactated Ringer's 1,000 ml @ 1000 / 1999 125 mls/hr IV .Q8H SHADY Rx#: [id number] Output: Urine 500 / 500 PG Care Time/CCT Total # of Minutes Spent Total Time Spent with Patient: Total time spent is greater than 50% in coordination of care (as documented) at patient's floor/unit and/or counseling patient: Coding Level of Care Code 23591 INT INP/OBS CARE 375MIN Diagnoses Cardiomyopathy I42.9 Cardiomyopathy type: unspecified Pulmonary edema J81.0 Chronicity: acute Pulmonary hypertension I27.20 Right-sided back pain M54.50; G89.29 Back pain location: low back pain Chronicity: chronic Sciatica presence: unspecified whether sciatica present (1) Cardiomyopathy Cardiomyopathy type: unspecified Qualified Code(s): I42.9 - Cardiomyopathy, unspecified (2) Pulmonary edema Chronicity: acute Qualified Code(s): J81.0 - Acute pulmonary edema (4) Right-sided back pain Back pain location: low back pain Chronicity: chronic Sciatica presence: unspecified whether sciatica present Qualified Code(s): M54.50 - Low back pain, unspecified; G89.29 - Other chronic pain
--- NOTE | 2023-02-23 09:41 | Urology Progress Note ---
Date of Service February 23, 2023 Assessment & Plan (1) Right-sided back pain: Plan 82-year-old female who was admitted with back pain. A lumbar CT scan originally called hydronephrosis and a right ureteral calculus however a repeat dedicated CT scan of the abdomen pelvis without contrast did not show any hydronephrosis and no obvious stone. Her ureters were somewhat tortuous. Her right lower back pain is fairly well controlled and I suspect this is musculoskeletal as CT scan does not show any urologic etiology. I had a long discussion patient and daughter yesterday about the CT scan findings with the initial lumbar scan and then the updated CT scan of the abdomen pelvis Outside of increased urinary frequency from Lasix she is not having any other bothersome urinary symptoms I had offered follow-up as an outpatient with the family yesterday but they declined. I do not think she has any obvious urologic issues at this time. -Rest of care per primary team Urology to sign off Admission and Anticipated Discharge Date Admission Date: February 22, 2023 Subjective Patient reports worsening respiratory status and shortness of breath this morning. She is currently on oxygen via nasal cannula. Afebrile with normal blood pressures but slightly tachycardic. Labs show white blood cell count of 11.01, down from 12.85. Creatinine is 0.59. Blood cultures are no growth. Right lower back pain is reasonably controlled. Review of Systems Review of Systems: 14 point review of systems negative outside of what is listed above in HPI Physical Exam Physical Exam: General: Alert and oriented, no acute distress HEENT: Normocephalic, mucous membranes moist Pulmonary: Nonlabored respirations Abdomen: Nondistended : No CVA tenderness Extremities: Moves all 4 spontaneously Neuro: No gross deficits Skin: Warm, dry, no rashes noted Results & Data Vital Signs (Past 12 Hours) Vital Signs Temp Pulse Resp BP Pulse Ox O2 Del Method O2 Flow Rate 02/23/23 09:23 36.5 C 111 H 16 132/72 97 Room Air, Nasal Cannula 4 02/23/23 07:51 36.6 C 120 H 18 172/93 H 97 Nasal Cannula 3 02/23/23 06:17 36.7 C 99 H 16 164/80 H 94 Nasal Cannula 2 PG Care Time/CCT Total # of Minutes Spent Total Time Spent with Patient: Total time spent is greater than 50% in coordination of care (as documented) at patient's floor/unit and/or counseling patient: Coding Level of Care Code 33143 SUB INP/OBS CARE 235MIN Diagnoses Right-sided back pain M54.9
[2023-02-23 11:47] LABS: Ferritin 29.1 ng/ml (8-388)
[2023-02-23] MEDS: VALSARTAN/SACUBITRIL 26/24MG TAB PO SCH ×2 (11:47→21:40)
[2023-02-23 13:56] LABS: Lyme Ab IgG w/WB Rflx Negative (Negative); Lyme Ab IgM w/WB Rflx Negative (Negative)
[2023-02-23] MEDS: carvediloL 3.125 MG TAB PO SCH (17:20)
--- NOTE | 2023-02-23 18:05 | Billing Data ---
Date of Service February 23, 2023 Coding Level of Care Code 52582 SUB INP/OBS CARE MIN
--- NOTE | 2023-02-23 18:05 | Billing Data ---
Date of Service February 23, 2023 Coding Level of Care Code PROLONG IP/OBS E/M EA 15 MIN Comment ~90mins spent in the room today
[2023-02-23] MEDS: HYDROmorphone INJ 0.5 MG/0.5 ML SYR IV PRN (21:46)
--- NOTE | 2023-02-24 03:03 | Billing Data ---
Date of Service February 24, 2023 Coding Level of Care Code 73047 INT INP/OBS CARE
[2023-02-24 06:55] LABS: BUN Creatinine Ratio 36.5 (10-20); Calcium 8.7 mg/dl (8.6-10.3); Creatinine Clr Calc Pharmacy 63.3 ml/min; Est GFR (African American) 102.4 ml/min; Est GFR (Non-African American) 88.4 ml/min; Potassium 3.6 mmol/L (3.5-5.1)
[2023-02-24 07:06] LABS: Hemoglobin 12.5 g/dl (12.0-16.0); Mean Corpuscular Hemoglobin 29.3 pg (25.0-34.0); Mean Corpuscular Hgb Conc 33.8 g/dL (32.0-36.0); Mean Corpuscular Volume 86.9 fL (80.0-100.0); Mean Platelet Volume 10.7 fL (9.4-12.4); Platelet Count 226 K/uL (130-400); RDW Coefficient of Variation 13.1 % (11.5-14.5); RDW Standard Deviation 40.9 fL (36.4-46.3); Red Blood Count 4.26 M/uL (4.20-5.40); White Blood Count 8.55 K/ul (4.8-10.8)
[2023-02-24] MEDS: carvediloL 3.125 MG TAB PO SCH ×2 (08:21→16:22)
[2023-02-24] MEDS: DICLOFENAC SOD 1% GEL 100 GM TUBE EXT SCH ×4 (08:22→21:22)
[2023-02-24] MEDS: UMECLIDINIUM BROMIDE 62.5MCG/BLISTER 7 PUFFS/INHALER INH SCH (08:22)
[2023-02-24] MEDS: FLUTICASONE/VILANTEROL 100/25MCG 14 PUFFS/INHALER INH SCH (08:22)
[2023-02-24] MEDS: CYANOCOBALAMIN (B-12) 500 MCG TABLET PO SCH (08:22)
[2023-02-24] MEDS: HEPARIN SOD 5,000 UNIT/0.5 ML VIAL SQ SCH ×2 (08:23→21:22)
[2023-02-24] MEDS: VALSARTAN/SACUBITRIL 26/24MG TAB PO SCH ×2 (08:23→21:22)
--- NOTE | 2023-02-24 09:14 | Hospitalist Progress Note ---
Date of Service February 24, 2023 Assessment & Plan (1) Nephrolithiasis: (2) Low back pain: (3) Osteopenia: (4) Degeneration of cervical intervertebral disc: (5) Vitamin D deficiency: (6) Vitamin B12 deficiency: Plan 82 y/o female with PMHx vitamin D deficiency, osteopenia, and OA was admitted due to back pain. Lumbar CT showed hydronephrosis and renal calculus in the right kidney. Since admission the patient has passed the stone and her remaining pain is likely due to chronic back pain or musculoskeletal origin. She was noted to have dyspnea with accessory muscle use, which the son indicates has been present and progressing for the last few months. Patient denies feeling significant SOB, chest pain, palpitations, weakness, or any other symptom. CTA performed due to SOB showed findings consistent with interstitial pulmonary edema. TTE done afterwards showed severely decreased EF (25-30%), global hypokinesis, and pulmonary HTN. Today her vital signs show stable BP and saturation on nasal cannula at 3 lpm. She has remained afebrile. Her labs today are showing decreased WBC to normal range (8.55) with improved anemia (11.7 --> 12.5) and stable platelets. Electrolytes and renal markers are within reference range as well. Work up to find possible reversible causes (protein abnormality) for her cardiomyopathy was ordered and results are pending. 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 - Consulted Cardiology * Need to look for reversible causes * Protein abnormalities -- labs ordered: results pending * Lyme * Viral etiology is likely - Continue low-dose carvedilol and Entresto with plans to titrate if possible. - Pharmacologic stress test to be performed on Saturday. If there are findings suggestive of ischemic etiology, will consider cardiac catheterization. If there are no findings to suggest ischemic cardiomyopathy, will consult respiratory therapy to coordinate home oxygen therapy. Pulmonary HTN - Echocardiogram (TTE) showed RVSP of 66 mmHg - Cardiology recommendations: * Likely due to combination of history of lung disease and elevated LV end- diastolic pressure * Repeat measurement after fluid status is corrected and she is on HF medications Pulmonary Edema - CTA showing findings consistent with interstitial pulmonary edema - 02/23/2023 with mild respiratory distress - Lasix 40mg IV given due to fluid overload with improvement of symptoms * If SOB is persistent or if patient develops dyspnea on ambulation, will consider ordering CXR to assess etiology - (02/24/2023) No SOB or respiratory distress on evaluation. Patient still on nasal cannula at 3 lpm and saturating well. Will continue to monitor. Possible undiagnosed chronic lung disease - Patient with chronic progression of respiratory difficulty that cannot be fully r/o as a cause of her cardiomyopathy (02/23) - No PFTs to formally diagnose COPD - Peak flow testing results almost a third of what is expected in this patient - Continue Fluticasone/ Vilanterol 1 puff daily - Continue Umeclidinium [place] 1 puff QAM Nephrolithiasis - Leukocytosis following a decreasing trend (11.01 today), afebrile. - Initial CT noted [id number] stone in R ureter, repeat CT showed no stone - S/p IV morphine times 2 g x 2 doses, IV NS bolus x1 L, and IV ceftriaxone 2 g in the ED. - Urology states back pain is likely musculoskeletal in nature; no urologic intervention required Acute on Chronic Back Pain - Back pain adequately controlled with Voltaren gel Hypokalemia -K+ 3.0 on admission. S/p 40 mEq KCl p.o. in the ED. * Ordered additional KCl 40 mEq to be given this morning. * Recheck on a.m. labs. Replete as indicated. * today 4.0 Vitamin D deficiency/osteopenia -Chronic. Managed on Citracal + D maximum, Tymlos. -Citracal held on admission. * Continue home abaloparatide Osteoarthritis/degenerative disc disease -Chronic. Managed on as needed methocarbamol, meloxicam, Tylenol. Stopped on admission. Code:Full code Dispo:Med-Surg DVT Prophylaxis:Heparin 5000 u q12h PT/OT:Yes Consults:Urology, Cardiology Admission and Anticipated Discharge Date Admission Date: February 22, 2023 Supervising Physician Co-Signing Physician Notes I personally examined the patient and verified all thursotn points of history and exam, discussed case, and agree with decision making with Dr Montero feeling better and breathing easier. Surprisingly did great with respiratory therapy walking for two-step, and does not appear to require oxygen at this time. Reiterated discussed questions from yesterday, answered questions regarding diagnoses, and put discharge planning in motionwith the hopes that after tomorrow stress test if it is negative she will be able to go home. Vitals noted, in general she is awake and alert pleasant no distress. HEENT normocephalic atraumatic mucous membranes moist. Breathing unlabored no accessory muscle use good effort. Skin shows no rashes no pallor or icterus. Does have blistering and healing on the bottom of her right foot only, unclear etiology Acute pulmonary edema (acute on chronic systolic CHF)improved with 40 mg of Lasix, the acute was most likely physiologic stress from the pain of the kidney stone leading to decompensation. Chronic dyspneaI suspect more from COPD from then from her cardiomyopathy, but probably elements of both COPDI was unable to get true pulmonary function tests in the hospital, certainly they will need to be done as an outpatient, but between her CT scan, her history, her smoking history, and her low peak flowsstrongly suspicious of fairly significant COPD. Added triple therapy for inhalers, likely to need supplemental oxygencertainly does at this point in time. Pulmonary hypertension almost certainly secondary to this predominantly, although could be somewhat due to her reduced LV function dilated cardiomyopathyLasix acutely as above, Entresto/coreg started by cardiology, I agree that it is reassuring that it is a global hypokinesis rather than focal, stress testing tomorrow. Discussed sodium restriction. Acute on chronic back painsubacute worseningdefinitely has a muscle overlay, Voltaren gel, TENS unit at home, read discussed that a trial of OMT would likely be beneficial suspect she passed a kidney stone as her reason for presentation, but all of the above was slowly decompensating over the last 6-12 months. Subjective Pt is an 82 yo female with PMH of PHILLIP, DDD, chronic back pain, osteopenia, who presented to the emergency room with right-sided back pain secondary to kidney stone. Patient with no overnight events. She has been breathing easier and denies dyspnea when walking to the bathroom. No conversational dyspnea noted either. She denies chest pain, significant SOB, nausea, vomiting, or any other symptom. Review of Systems Review of Systems: Per HPI. Physical Exam Physical Exam: General: Alert. Oriented to person, time, and place. Afebrile. No acute distress. Eyes: pupils equal and reactive to light bilaterally, extraocular movements intact. Cardiac: Regular rate and rhythm, no murmurs/rubs/gallops. Respiratory: mild B/l rales improved when compared with yesterday's examination, no respiratory distress Abdomen: Soft, nontender, nondistended. Bowel sounds present. Lower Extremities: No lower extremity edema or swelling. No deep calf pain. Varsha's negative bilaterally. Psych: Euthymic affect. Mood and affect congruence. Regular speech rate and content. Results & Data Results & Data Vital Signs (Past 12 Hours) Vital Signs Temp Pulse Resp BP Pulse Ox O2 Del Method O2 Flow Rate 02/24/23 08:18 70 16 107/64 99 Nasal Cannula 3 02/24/23 07:04 36.5 C 82 18 92/55 L 97 Nasal Cannula 3 02/23/23 21:30 Nasal Cannula 4 02/23/23 21:38 36.4 C L 79 18 104/72 98 Nasal Cannula 4 Resident Activity Tracking Resident Involvement: Resident Care Provided Care Provided: Adult Hospital Medicine
--- NOTE | 2023-02-24 12:54 | Cardiology Progress Note ---
Date of Service February 24, 2023 Assessment & Plan (1) Cardiomyopathy: (2) Pulmonary edema: (3) Pulmonary hypertension: (4) Right-sided back pain: Plan 1. Cardiomyopathy: The cause of her cardiomyopathy is unclear, although ischemic would be the most common in her age group but other than her risk factors she has very little going for that diagnosis. Her electrocardiogram does not show prior infarctions, she does not have symptoms of prior infarction and she does not have wall motion abnormalities. She does have low-grade cardiac enzymes but the pattern is not suggestive of a recent infarction and may be more consistent with an ongoing inflammatory condition. I suspect she has a nonischemic cardiomyopathy which probably started about 6 months ago and possibly progressed. We need to look for reversible causes such as protein abnormalities, etc. I ordered these tests and they are pending. I will check a Lyme titer, a viral infection may be the most likely but we cannot test for that. We will need to do something to look for ischemia but I would favor doing a pharmacologic Cardiolite stress test next week rather than a cardiac catheterization. She seems to be doing well on low-dose carvedilol and Entresto with plans to titrate if possible, but I probably would not do that this admission unless she becomes hypertensive. 2. Pulmonary edema: Clinically she does not have a lot of CHF, it was identified on CT scanning and her symptoms of dyspnea on exertion are consistent. She is feeling better although has not been very active in her room. I agree with diuresis although she probably does not have a lot of fluid present. 3. Pulmonary hypertension: She has significant pulmonary hypertension which is probably a combination of lung disease and elevated left ventricular end- diastolic pressure. Once we get her fluid status controlled and have her on her heart failure medications we can repeat a measurement and see where it stands. It is unlikely it is reversible if it is related to her lung disease. 4. Right-sided back pain: This seems consistent with her known diagnoses of osteoarthritis and kidney stone. I do not think it represents angina, I believe her cardiomyopathy was identified while she was here but not related to her presentation. Admission and Anticipated Discharge Date Admission Date: February 22, 2023 Subjective She tells me that she is feeling better today, less short of breath although activities are limited and she is still wearing oxygen. No cardiac symptoms. Physical Exam Physical Exam: Constitutional: Alert, cooperative and in no distress. HEENT: Unremarkable Neck: No jugular venous distention, carotid pulses are normal and equal bilaterally without bruits. Pulmonary: Clear to auscultation bilaterally although with decreased breath sounds. Cardiac: Regular rhythm with no murmur, gallop or rub. Abdomen: Soft, nontender with normal bowel sounds. Extremities: No edema. Distal pulses intact. Neurologic: No focal findings. Gait is steady (assessed when she went to the bathroom). Skin: No rash, ecchymoses or petechiae. Results & Data Vital Signs (Past 12 Hours) Vital Signs Temp Pulse Resp BP Pulse Ox O2 Del Method O2 Flow Rate 02/24/23 07:40 Nasal Cannula 3 02/24/23 08:18 70 16 107/64 99 Nasal Cannula 3 02/24/23 07:04 36.5 C 82 18 92/55 L 97 Nasal Cannula 3 Laboratory Results CBC 02/24/23 Range/Units 06:04 WBC 8.55 (4.8-10.8) K/ul RBC 4.26 (4.20-5.40) M/uL Hgb 12.5 (12.0-16.0) g/dl Hct 37.0 (37.0-47.0) % Plt Count 226 (130-400) K/uL Comprehensive Metabolic Panel 02/24/23 Range/Units 06:04 Sodium 139 (136-145) mmol/L Potassium 3.6 (3.5-5.1) mmol/L Chloride 101 (98-107) mmol/L Carbon Dioxide 32 (21-32) mmol/L BUN 19 (6-23) mg/dl Creatinine 0.52 L (0.6-1.2) mg/dl Glucose 92 (70-99(Fasting)) mg/dl Calcium 8.7 (8.6-10.3) mg/dl Intake and Output 02/23/23 02/24/23 02/24/23 22:59 06:59 14:59 Output Total 2069 Balance -270 / -2069 Output: Urine 270 2069 PG Care Time/CCT Total # of Minutes Spent Total Time Spent with Patient: Total time spent is greater than 50% in coordination of care (as documented) at patient's floor/unit and/or counseling patient: Coding Level of Care Code 13081 SUB INP/OBS CARE 2/35MIN Diagnoses Cardiomyopathy I42.9 Cardiomyopathy type: unspecified Pulmonary edema J81.0 Chronicity: acute Pulmonary hypertension I27.20 Right-sided back pain M54.50; G89.29 Back pain location: low back pain Chronicity: chronic Sciatica presence: unspecified whether sciatica present (1) Cardiomyopathy Cardiomyopathy type: unspecified Qualified Code(s): I42.9 - Cardiomyopathy, unspecified (2) Pulmonary edema Chronicity: acute Qualified Code(s): J81.0 - Acute pulmonary edema (4) Right-sided back pain Back pain location: low back pain Chronicity: chronic Sciatica presence: unspecified whether sciatica present Qualified Code(s): M54.50 - Low back pain, unspecified; G89.29 - Other chronic pain
--- NOTE | 2023-02-24 18:59 | Billing Data ---
Date of Service February 24, 2023 Coding Level of Care Code 38761 SUB INP/OBS CARE MIN
[2023-02-25 06:29] LABS: Hematocrit (blood only) 36.2 % (37.0-47.0); Hemoglobin 12.3 g/dl (12.0-16.0); Mean Corpuscular Hemoglobin 29.3 pg (25.0-34.0); Mean Corpuscular Volume 86.2 fL (80.0-100.0); Mean Platelet Volume 10.4 fL (9.4-12.4); Platelet Count 247 K/uL (130-400); RDW Coefficient of Variation 13.2 % (11.5-14.5); RDW Standard Deviation 41.2 fL (36.4-46.3); White Blood Count 7.85 K/ul (4.8-10.8)
[2023-02-25] MEDS ORDERED: ACETAMINOPHEN 500 MG TAB PO PRN (06:36)
[2023-02-25 06:59] LABS: BUN Creatinine Ratio 33.3 (10-20); Calcium 8.7 mg/dl (8.6-10.3); Creatinine Clr Calc Pharmacy 54.8 ml/min; Est GFR (African American) 97.7 ml/min; Est GFR (Non-African American) 84.3 ml/min; Magnesium 2.1 mg/dl (1.7-2.4); Potassium 3.7 mmol/L (3.5-5.1)
--- NOTE | 2023-02-25 07:16 | Hospitalist Progress Note ---
Date of Service February 25, 2023 Assessment & Plan (1) Nephrolithiasis: (2) Low back pain: (3) Osteopenia: (4) Degeneration of cervical intervertebral disc: (5) Vitamin D deficiency: (6) Vitamin B12 deficiency: Plan 82 y/o female here due to right lower back pain found to have kidney stone, right-sided, proximal ureter with hydronephrosis. During admission, dyspnea was noticed. Found to have non ischemic cardiomyopathy, interstitial pulmonary edema and pulmonary HTN Possible Non-Ischemic Cardiomyopathy - Echocardiogram (TTE) done (02/23/2023) * Severely reduced EF (25-30%) * Global hypokinesis - likely began 6 months ago, when SOB start - Consulted Cardiology * looking for reversible causes * Protein abnormalities -- labs ordered: results pending * Lyme * Viral etiology is likely - Low-dose carvedilol and Entresto with plans to titrate if possible. - Pharmacologic stress test will be re-schedule for tomorrow am. -NPO midnight Pulmonary HTN - Echocardiogram (TTE) showed RVSP of 66 mmHg - Cardiology recommendations: * Likely due to combination of history of lung disease and elevated LV end- diastolic pressure Pulmonary Edema - CTA on admission - findings consistent with interstitial pulmonary edema -s/p Lasix 40mg IV given due to fluid overload with improvement of symptoms Possible undiagnosed chronic lung disease - No PFTs - Former smoker - Due to extent of dyspnea on admission- empirically started on triple therapy - Continue Fluticasone/ Vilanterol 1 puff daily - Continue Umeclidinium [place] 1 puff QAM - Considering improvement in Pulse Oximetry: 96%, less likely with significant lung ds. Nephrolithiasis - No Leukocytosis(7.8 today), afebrile. - Initial CT noted [id number] stone in R ureter, repeat CT showed no hydronephrosis and no stone - S/p IV morphine times 2 g x 2 doses, IV NS bolus x1 L, and IV ceftriaxone 2 g in the ED. -Urology sign off. No urology txt at the moment. Follow prn, pt decline Acute on Chronic Back Pain -Acute pain possibly sec to passing urinary stone. - Back pain adequately controlled with Voltaren gel Vitamin D deficiency/osteopenia -Chronic. Managed on Citracal + D maximum, Tymlos. -Citracal held on admission. * Continue home abaloparatide Osteoarthritis/degenerative disc disease -Chronic. Managed on as needed methocarbamol, meloxicam, Tylenol. Stopped on admission. Code:Full code Dispo:Med-Surg DVT Prophylaxis:Heparin 5000 u q12h PT/OT:Yes Consults:Urology, Cardiology Admission and Anticipated Discharge Date Admission Date: February 22, 2023 Supervising Physician Co-Signing Physician Notes Resident Physician Supervision Note: I independently interviewed and examined the patient and verified the thurston history and physical, reviewed labs and image studies and agree with resident findings and care plan. Subjective 82 y/o female with PMHx vitamin D deficiency, osteopenia, and OA was admitted due to back pain. Admitted with dx of nephrolothiasis. Lumbar CT showed hydronephrosis and renal calculus in the right kidney. Since admission the patient has passed the stone and her remaining pain is likely due to chronic back pain or musculoskeletal origin. She was noted to have dyspnea with accessory muscle use, which the son indicates has been present and progressing for the last few months. Patient denies feeling significant SOB, chest pain, palpitations, weakness, or any other symptom. CTA performed due to SOB showed findings consistent with interstitial pulmonary edema. TTE done afterwards showed severely decreased EF (25-30%), global hypokinesis, and pulmonary HTN. (02/25)Today her vital signs show stable BP and saturation on nasal cannula at 3 lpm. She has remained afebrile. Her labs today are showing decreased WBC to normal range (8.55) with improved anemia (11.7 --> 12.5) and stable platelets. Electrolytes and renal markers are within reference range as well. Work up to find possible reversible causes (protein abnormality) for her cardiomyopathy was ordered and results are pending. Patient denied any SOB, dizziness, chest pain, palpitations, weakness or any other symtoms. Review of Systems Review of Systems: Per HPI. Physical Exam Physical Exam: Constitutional: Alert, cooperative and in no distress. HEENT: Unremarkable Neck: No jugular venous distention, carotid pulses are normal and equal bilaterally without bruits. Pulmonary: Clear to auscultation bilaterally although with decreased breath sounds. Cardiac: Regular rhythm with no murmur, gallop or rub. Abdomen: Soft, nontender with normal bowel sounds. Extremities: No edema. Distal pulses intact. Neurologic: No focal findings. Gait is steady (assessed when she went to the bathroom). Skin: No rash, ecchymoses or petechiae. Results & Data Results & Data Vital Signs (Past 12 Hours) Vital Signs Temp Pulse Resp BP Pulse Ox O2 Del Method 02/24/23 20:00 Room Air 02/24/23 21:28 36.5 C 85 18 99/69 L 95 Room Air Resident Activity Tracking Resident Involvement: Resident Care Provided Care Provided: Adult Hospital Medicine
[2023-02-25] MEDS: VALSARTAN/SACUBITRIL 26/24MG TAB PO SCH ×2 (08:06→21:31)
[2023-02-25] MEDS: HEPARIN SOD 5,000 UNIT/0.5 ML VIAL SQ SCH ×2 (08:06→21:31)
[2023-02-25] MEDS: CYANOCOBALAMIN (B-12) 500 MCG TABLET PO SCH (08:06)
[2023-02-25] MEDS: carvediloL 3.125 MG TAB PO SCH ×2 (08:07→15:55)
[2023-02-25] MEDS: FLUTICASONE/VILANTEROL 100/25MCG 14 PUFFS/INHALER INH SCH (08:07)
[2023-02-25] MEDS: UMECLIDINIUM BROMIDE 62.5MCG/BLISTER 7 PUFFS/INHALER INH SCH (08:08)
[2023-02-25] MEDS: DICLOFENAC SOD 1% GEL 100 GM TUBE EXT SCH ×4 (08:11→21:31)
--- NOTE | 2023-02-25 09:07 | Electrocardiogram Report ---
Test Reason : Blood Pressure : / mmHG Vent. Rate : 122 BPM Atrial Rate : 122 BPM P-R Int : 146 ms QRS Dur : 078 ms QT Int : 334 ms P-R-T Axes : 090 038 086 degrees QTc Int : 475 ms Poor data quality, interpretation may be adversely affected Sinus tachycardia with Premature atrial complexes Minimal voltage criteria for LVH, may be normal variant Nonspecific ST and T wave abnormality Abnormal ECG When compared with ECG of 21-FEB-2023 20:27, No significant change was found Confirmed by Glen Farooq ([id number]) on 02/25/2023 9:06:35 AM Referred By: REFERRED SELF Confirmed By:Glen Farooq
[2023-02-26] MEDS ORDERED: LACTATED RINGER'S 1,000 ML IV SCH
[2023-02-26 06:30] LABS: Hematocrit (blood only) 36.8 % (37.0-47.0); Hemoglobin 12.4 g/dl (12.0-16.0); Mean Corpuscular Hgb Conc 33.7 g/dL (32.0-36.0); Mean Corpuscular Volume 86.2 fL (80.0-100.0); Mean Platelet Volume 10.1 fL (9.4-12.4); Platelet Count 276 K/uL (130-400); RDW Coefficient of Variation 13.1 % (11.5-14.5); RDW Standard Deviation 40.6 fL (36.4-46.3); Red Blood Count 4.27 M/uL (4.20-5.40); White Blood Count 7.78 K/ul (4.8-10.8)
[2023-02-26 06:54] LABS: BUN Creatinine Ratio 32.8 (10-20); Creatinine Clr Calc Pharmacy 56.7 ml/min; Est GFR (African American) 98.8 ml/min; Est GFR (Non-African American) 85.2 ml/min; Magnesium 2.2 mg/dl (1.7-2.4); Potassium 3.7 mmol/L (3.5-5.1)
--- NOTE | 2023-02-26 07:07 | Hospitalist Progress Note ---
Date of Service February 26, 2023 Assessment & Plan (1) Nephrolithiasis: (2) Low back pain: (3) Osteopenia: (4) Degeneration of cervical intervertebral disc: (5) Vitamin D deficiency: (6) Vitamin B12 deficiency: Plan 82 y/o female here due to right lower back pain found to have kidney stone, right-sided, proximal ureter with hydronephrosis. During admission, dyspnea was noticed. Found to have non ischemic cardiomyopathy, interstitial pulmonary edema and pulmonary HTN Possible Non-Ischemic Cardiomyopathy - Echocardiogram (TTE) done (02/23/2023) * Severely reduced EF (25-30%) * Global hypokinesis - likely began 6 months ago, when SOB start - Consulted Cardiology * looking for reversible causes * Protein abnormalities -- labs ordered: results pending * Lyme * Viral etiology is likely - Low-dose carvedilol and Entresto with plans to titrate if possible. - Pharmacologic stress test will be re-schedule for tomorrow am. -NPO midnight Pulmonary HTN - Echocardiogram (TTE) showed RVSP of 66 mmHg - Cardiology recommendations: * Likely due to combination of history of lung disease and elevated LV end- diastolic pressure Pulmonary Edema - CTA on admission - findings consistent with interstitial pulmonary edema -s/p Lasix 40mg IV given due to fluid overload with improvement of symptoms Possible undiagnosed chronic lung disease - No PFTs - Former smoker - Due to extent of dyspnea on admission- empirically started on triple therapy - Continue Fluticasone/ Vilanterol 1 puff daily - Continue Umeclidinium [place] 1 puff QAM - Considering improvement in Pulse Oximetry: 96%, less likely with significant lung ds. Nephrolithiasis - No Leukocytosis(7.8 today), afebrile. - Initial CT noted [id number] stone in R ureter, repeat CT showed no hydronephrosis and no stone - S/p IV morphine times 2 g x 2 doses, IV NS bolus x1 L, and IV ceftriaxone 2 g in the ED. -Urology sign off. No urology txt at the moment. Follow prn, pt decline Acute on Chronic Back Pain -Acute pain possibly sec to passing urinary stone. - Back pain adequately controlled with Voltaren gel Vitamin D deficiency/osteopenia -Chronic. Managed on Citracal + D maximum, Tymlos. -Citracal held on admission. * Continue home abaloparatide Osteoarthritis/degenerative disc disease -Chronic. Managed on as needed methocarbamol, meloxicam, Tylenol. Stopped on admission. Code:Full code Dispo:Med-Surg DVT Prophylaxis:Heparin 5000 u q12h PT/OT:Yes Consults:Urology, Cardiology Admission and Anticipated Discharge Date Admission Date: February 22, 2023 Subjective 82 y/o female with PMHx vitamin D deficiency, osteopenia, and OA was admitted due to back pain. Admitted with dx of nephrolothiasis. Lumbar CT showed hydronephrosis and renal calculus in the right kidney. Since admission the patient has passed the stone and her remaining pain is likely due to chronic back pain or musculoskeletal origin. She was noted to have dyspnea with accessory muscle use, which the son indicates has been present and progressing for the last few months. Patient denies feeling significant SOB, chest pain, palpitations, weakness, or any other symptom. CTA performed due to SOB showed findings consistent with interstitial pulmonary edema. TTE done afterwards showed severely decreased EF (25-30%), global hypokinesis, and pulmonary HTN. (02/25)Today her vital signs show stable BP and saturation on nasal cannula at 3 lpm. She has remained afebrile. Her labs today are showing decreased WBC to normal range (8.55) with improved anemia (11.7 --> 12.5) and stable platelets. Electrolytes and renal markers are within reference range as well. Work up to find possible reversible causes (protein abnormality) for her cardiomyopathy was ordered and results are pending. Patient denied any SOB, dizziness, chest pain, palpitations, weakness or any other symtoms. Physical Exam Physical Exam: Constitutional: Alert, cooperative and in no distress. HEENT: Unremarkable Neck: No jugular venous distention, carotid pulses are normal and equal bilaterally without bruits. Pulmonary: Clear to auscultation bilaterally although with decreased breath sounds. Cardiac: Regular rhythm with no murmur, gallop or rub. Abdomen: Soft, nontender with normal bowel sounds. Extremities: No edema. Distal pulses intact. Neurologic: No focal findings. Gait is steady (assessed when she went to the bathroom). Skin: No rash, ecchymoses or petechiae. Results & Data Results & Data Vital Signs (Past 12 Hours) Vital Signs Temp Pulse Resp BP Pulse Ox O2 Del Method 02/25/23 21:17 36.6 C 88 17 118/70 96 Room Air
[2023-02-26] MEDS ORDERED: REGADENOSON 0.4 MG/5 ML SYR IV ONE (08:38)
[2023-02-26] MEDS: UMECLIDINIUM BROMIDE 62.5MCG/BLISTER 7 PUFFS/INHALER INH SCH (10:04)
[2023-02-26] MEDS: HEPARIN SOD 5,000 UNIT/0.5 ML VIAL SQ SCH (10:04)
[2023-02-26] MEDS: DICLOFENAC SOD 1% GEL 100 GM TUBE EXT SCH ×2 (10:05→13:08)
[2023-02-26] MEDS: FLUTICASONE/VILANTEROL 100/25MCG 14 PUFFS/INHALER INH SCH (10:05)
[2023-02-26] MEDS: CYANOCOBALAMIN (B-12) 500 MCG TABLET PO SCH (10:06)
[2023-02-26] MEDS: VALSARTAN/SACUBITRIL 26/24MG TAB PO SCH (10:06)
[2023-02-26] MEDS: carvediloL 3.125 MG TAB PO SCH (10:06)
--- NOTE | 2023-02-26 13:05 | Discharge Summary ---
Date of Service February 26, 2023 Admission HPI Per Admitting Provider Stefanie is an 82-year old woman with a PMH of osteoarthritis, degenerative disc disease (s/p lumbar, spinal surgery), chronic back pain, and osteopenia, who presents with right-sided lower back pain. She has chronic pain at baseline. However, her pain "became unbearable" today. The pain does not radiate to her abdomen or her groin. ROS+ nausea as well. She denies headache, SOB, chest pain, vomiting, diarrhea, or dysuria. In the ED, vital signs were notable for tachycardia but was afebrile. Labs revealed leukocytosis (WBC-16.18), hypokalemia (K3.0), and trace leukocyte esterase on UA. CT lumbar spine revealed 9 x 5 mm proximal mid ureteral stone with moderate hydroureteronephrosis on the right, as well as a left-sided mild hydronephrosis without an obvious collecting stone. She received a 1 L bolus of normal saline, IV Zofran, a dose of IV Ceftriaxone 2 g, Tamsulosin, IV morphine 2 g x2, and 40 mEq of potassium chloride. Urology was consulted for evaluation, management recs in the ED. Hospitalist service was then consulted for admission. Admission Exam Per Admitting Provider General: No acute distress HEENT: PERRLA. Normal conjunctiva, anicteric sclera. Oropharynx normal. Respiratory: Normal respiratory effort. Mild bibasilar crackles. No rhonchi or wheezes heard. Cardiovascular: Tachycardic rate. Regular rhythm. No murmurs, gallops, or rubs. No pedal edema. GI: Moderate RUQ tenderness to palpation. Mild right lower back tenderness to palpation. No flank tenderness elicited. Neuro: Alert and oriented x3. Principal Diagnosis Non-ischemic Cardiomyopathy Discharge Exam Constitutional: Alert, cooperative and in no distress. HEENT: Unremarkable Neck: No jugular venous distention, carotid pulses are normal and equal bilaterally without bruits. Pulmonary: Clear to auscultation bilaterally although with decreased breath sounds. Cardiac: Regular rhythm with no murmur, gallop or rub. Abdomen: Soft, nontender with normal bowel sounds. Extremities: No edema. Distal pulses intact. Neurologic: No focal findings. Gait is steady (assessed when she went to the bathroom). Skin: No rash, ecchymoses or petechiae. Discharge Data Allergies Allergy/AdvReac Type Severity Reaction Status Date / Time codeine AdvReac Mild NAUSEA/VOMI Verified 02/21/23 23:25 T morphine AdvReac Mild NAUSEA/VOMI Verified 02/21/23 23:25 T Consultations 02/21/23 22:16 Consult Urology Routine 02/21/23 23:00 ED Decision to Admit Stat 02/23/23 09:18 Consult Cardiology Routine Ordered Studies Microbiology 02/21/23 22:49 Blood Aerobic Blood Culture - Preliminary No growth in Aerobic bottle after 48 hours. 02/21/23 22:49 Blood Anaerobic Blood Culture - Preliminary No growth in Anaerobic bottle after 48 hours. 02/21/23 22:42 Blood Aerobic Blood Culture - Preliminary No growth in Aerobic bottle after 48 hours. 02/21/23 22:42 Blood Anaerobic Blood Culture - Preliminary No growth in Anaerobic bottle after 48 hours. Labs 02/21/23 02/21/23 02/21/23 10:37 20:15 20:15 WBC 16.18 H RBC 4.58 Hgb 13.5 Hct 40.0 MCV 87.3 MCH 29.5 MCHC 33.8 RDW Std Deviation 42.7 RDW Coeff of Macey 13.3 Plt Count 314 MPV 10.2 Immature Gran % (Auto) 0.4 Neut % (Auto) 66.3 Lymph % (Auto) 22.0 [place] % (Auto) 7.8 Eos % (Auto) 2.3 Baso % (Auto) 1.2 Neut # (Auto) 10.73 H Lymph # (Auto) 3.56 H [place] # (Auto) 1.27 H Eos # (Auto) 0.37 Baso # (Auto) 0.19 Immature Gran # (Auto) 0.06 Sodium 142 Potassium 3.0 L Chloride 104 Carbon Dioxide 28 Anion Gap 10 BUN 27 H Creatinine 0.82 Est Cr Clr Drug Dosing 41.1 Est GFR ( Amer) 76.7 Est GFR (Non-Af Amer) 66.2 BUN/Creatinine Ratio 32.9 H Glucose 143 H Calcium 9.5 Magnesium 2.0 Iron Unsaturated IBC Ferritin Total Bilirubin 0.5 AST 29 ALT 26 Alkaline Phosphatase 60 Troponin I High Sens 38.6 H Total Protein 7.0 Albumin 4.4 Globulin 2.6 Albumin/Globulin Ratio 1.7 Urine Color Urine Appearance Urine pH Ur Specific [place] Urine Protein Urine Glucose (UA) Urine Ketones Urine Blood Urine Nitrite Urine Bilirubin Urine Urobilinogen Ur Leukocyte Esterase Urine WBC (Auto) Urine RBC (Auto) U Hyaline Cast (Auto) U Epithel Cells (Auto) Urine Bacteria (Auto) Lyme Disease IgG Ab Negative Lyme Disease IgM Ab Negative 02/21/23 02/22/23 02/22/23 22:42 06:46 06:46 WBC 12.85 H RBC 3.78 L Hgb 11.0 L Hct 32.9 L MCV 87.0 MCH 29.1 MCHC 33.4 RDW Std Deviation 42.8 RDW Coeff of [place]acey 13.4 Plt Count 211 MPV 10.2 Immature Gran % (Auto) Neut % (Auto) Lymph % (Auto) [place] % (Auto) Eos % (Auto) Baso % (Auto) Neut # (Auto) Lymph # (Auto) [place] # (Auto) Eos # (Auto) Baso # (Auto) Immature Gran # (Auto) Sodium 138 Potassium 4.3 D Chloride 106 Carbon Dioxide 26 Anion Gap 6 BUN 21 Creatinine 0.62 Est Cr Clr Drug Dosing 53.1 Est GFR ( Amer) 96.6 Est GFR (Non-Af Amer) 83.4 BUN/Creatinine Ratio 33.9 H Glucose 103 H Calcium 8.6 Magnesium 1.7 Iron Unsaturated IBC Ferritin Total Bilirubin AST ALT Alkaline Phosphatase Troponin I High Sens Total Protein Albumin Globulin Albumin/Globulin Ratio Urine Color Yellow Urine Appearance Clear Urine pH 6.5 Ur Specific [place] 1.037 H Urine Protein Trace H Urine Glucose (UA) Negative Urine Ketones 1+ H Urine Blood Negative Urine Nitrite Negative Urine Bilirubin Negative Urine Urobilinogen Negative Ur Leukocyte Esterase Trace H Urine WBC (Auto) 1-5 Urine RBC (Auto) 0-4 U Hyaline Cast (Auto) 1-5 U Epithel Cells (Auto) 20-30 H Urine Bacteria (Auto) Negative Lyme Disease IgG Ab Lyme Disease IgM Ab 02/23/23 02/23/23 02/23/23 08:30 08:30 08:31 WBC 11.01 H RBC 3.97 L Hgb 11.7 L Hct 34.8 L MCV 87.7 MCH 29.5 MCHC 33.6 RDW Std Deviation 43.3 RDW Coeff of [place]acey 13.4 Plt Count 212 MPV 10.0 Immature Gran % (Auto) 0.3 Neut % (Auto) 78.0 Lymph % (Auto) 11.4 [place] % (Auto) 8.4 Eos % (Auto) 1.0 Baso % (Auto) 0.9 Neut # (Auto) 8.59 H Lymph # (Auto) 1.25 [place] # (Auto) 0.93 H Eos # (Auto) 0.11 Baso # (Auto) 0.10 Immature Gran # (Auto) 0.03 Sodium 138 Potassium 4.0 Chloride 104 Carbon Dioxide 27 Anion Gap 7 BUN 19 Creatinine 0.59 L Est Cr Clr Drug Dosing 55.8 Est GFR ( Amer) 98.2 Est GFR (Non-Af Amer) 84.8 BUN/Creatinine Ratio 32.2 H Glucose 102 H Calcium 9.1 Magnesium 1.9 Iron 98 Unsaturated IBC 263 Ferritin 29.1 Total Bilirubin AST ALT Alkaline Phosphatase Troponin I High Sens 54.9 H* D Total Protein Albumin Globulin Albumin/Globulin Ratio Urine Color Urine Appearance Urine pH Ur Specific [place] Urine Protein Urine Glucose (UA) Urine Ketones Urine Blood Urine Nitrite Urine Bilirubin Urine Urobilinogen Ur Leukocyte Esterase Urine WBC (Auto) Urine RBC (Auto) U Hyaline Cast (Auto) U Epithel Cells (Auto) Urine Bacteria (Auto) Lyme Disease IgG Ab Lyme Disease IgM Ab 02/24/23 02/24/23 02/25/23 06:04 06:04 05:49 WBC 8.55 RBC 4.26 Hgb 12.5 Hct 37.0 MCV 86.9 MCH 29.3 MCHC 33.8 RDW Std Deviation 40.9 RDW Coeff of [place]acey 13.1 Plt Count 226 MPV 10.7 Immature Gran % (Auto) Neut % (Auto) Lymph % (Auto) [place] % (Auto) Eos % (Auto) Baso % (Auto) Neut # (Auto) Lymph # (Auto) [place] # (Auto) Eos # (Auto) Baso # (Auto) Immature Gran # (Auto) Sodium 139 141 Potassium 3.6 3.7 Chloride 101 105 Carbon Dioxide 32 31 Anion Gap 6 5 BUN 19 20 Creatinine 0.52 L 0.60 Est Cr Clr Drug Dosing 63.3 54.8 Est GFR ( Amer) 102.4 97.7 Est GFR (Non-Af Amer) 88.4 84.3 BUN/Creatinine Ratio 36.5 H 33.3 H Glucose 92 101 H Calcium 8.7 8.7 Magnesium 2.0 2.1 Iron Unsaturated IBC Ferritin Total Bilirubin AST ALT Alkaline Phosphatase Troponin I High Sens Total Protein Albumin Globulin Albumin/Globulin Ratio Urine Color Urine Appearance Urine pH Ur Specific [place] Urine Protein Urine Glucose (UA) Urine Ketones Urine Blood Urine Nitrite Urine Bilirubin Urine Urobilinogen Ur Leukocyte Esterase Urine WBC (Auto) Urine RBC (Auto) U Hyaline Cast (Auto) U Epithel Cells (Auto) Urine Bacteria (Auto) Lyme Disease IgG Ab Lyme Disease IgM Ab 02/25/23 02/26/23 02/26/23 05:49 05:54 05:54 WBC 7.85 7.78 RBC 4.20 4.27 Hgb 12.3 12.4 Hct 36.2 L 36.8 L MCV 86.2 86.2 MCH 29.3 29.0 MCHC 34.0 33.7 RDW Std Deviation 41.2 40.6 RDW Coeff of Macey 13.2 13.1 Plt Count 247 276 MPV 10.4 10.1 Immature Gran % (Auto) Neut % (Auto) Lymph % (Auto) [place] % (Auto) Eos % (Auto) Baso % (Auto) Neut # (Auto) Lymph # (Auto) [place] # (Auto) Eos # (Auto) Baso # (Auto) Immature Gran # (Auto) Sodium 141 Potassium 3.7 Chloride 107 Carbon Dioxide 27 Anion Gap 7 BUN 19 Creatinine 0.58 L Est Cr Clr Drug Dosing 56.7 Est GFR ( Amer) 98.8 Est GFR (Non-Af Amer) 85.2 BUN/Creatinine Ratio 32.8 H Glucose 102 H Calcium 9.0 Magnesium 2.2 Iron Unsaturated IBC Ferritin Total Bilirubin AST ALT Alkaline Phosphatase Troponin I High Sens Total Protein Albumin Globulin Albumin/Globulin Ratio Urine Color Urine Appearance Urine pH Ur Specific [place] Urine Protein Urine Glucose (UA) Urine Ketones Urine Blood Urine Nitrite Urine Bilirubin Urine Urobilinogen Ur Leukocyte Esterase Urine WBC (Auto) Urine RBC (Auto) U Hyaline Cast (Auto) U Epithel Cells (Auto) Urine Bacteria (Auto) Lyme Disease IgG Ab Lyme Disease IgM Ab Lumbar Spine CT 02/21/23 20:18 Exam(s): CT L SPINE EXAM: CT Lumbar Spine Without Intravenous Contrast CLINICAL HISTORY: Acute on chronic R lower back pain. TECHNIQUE: Axial computed tomography images of the lumbar spine without intravenous contrast. CTDI is 22.99 mGy and DLP is 627.13 mGy-cm. Automated exposure control was utilized for the study. A dose lowering technique was utilized adhering to the principles of ALARA. COMPARISON: Plain radiographs 06/21/2020: CT abdomen and pelvis dated 08/24/2022 FINDINGS: Vertebrae: The vertebral bodies are stable in appearance without acute fracture. Stable appearing loss of height involving the superior endplate at L1 level. There is similar scoliosis, convex right with a 14 mm rightward listhesis of L3 on L4. There is a chronic fracture through the posterior left vertebral body at L1 level adjacent to the pedicle. 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 Discs/spinal canal/neural foramina: There is posterior fusion at L2 and L3 levels with pedicle screws and paraspinal rods, stable. 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 There is moderately severe disc spondylosis with narrowing and marginal hypertrophic changes at L1-2, L3-L4 and L5-S1. There are laminectomy defects at the level of the posterior fusion there is mild osseous neural foraminal encroachment at the left T12-L1 level. Otherwise no significant osseous canal stenosis. Soft tissues: Unremarkable. Vasculature: Atherosclerotic calcification of the aorta. Kidneys and ureters: There is a 5 x 9 mm proximal to mid right ureteral stone with at least moderate hydroureteronephrosis. There is mild left hydronephrosis without obvious collecting stone, where visible. Detailed evaluation limited. IMPRESSION: 1. The vertebral bodies are stable in appearance without acute fracture. Stable appearing loss of height involving the superior endplate at L1 level. There is similar scoliosis, convex right with a 14 mm rightward listhesis of L3 on L4. There is a chronic fracture through the posterior left vertebral body at L1 level adjacent to the pedicle. 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 The clinical significance of these findings is indeterminant. 2. There is a 5 x 9 mm proximal to mid right ureteral stone with at least moderate hydroureteronephrosis. 3. Scoliosis with multilevel degenerative changes and posterior fusion, as detailed above. Electronically signed by: Richard Abernathy MD 02/21/23 21:37 PM Chest CTA 02/21/23 21:26 Exam(s): CTA CHEST IV Amt: 119ml EXAM: CT Angiography Chest With Intravenous Contrast CLINICAL HISTORY: Evaluate for PE. TECHNIQUE: Axial computed tomographic angiography images of the chest with intravenous contrast. CTDI is 27.4 mGy and DLP is 469.15 mGy-cm. Automated exposure control was utilized for the study. A dose lowering technique was utilized adhering to the principles of ALARA. MIP reconstructed images were created and reviewed. COMPARISON: No relevant prior studies available. FINDINGS: Pulmonary arteries: There is no evidence for pulmonary embolism. Aorta: Atherosclerotic calcification of the aorta without aneurysm. Lungs: There is heterogeneous interlobular septal thickening and peribronchial cuffing, most notable involving the right lung and left lower lobe. Subsegmental changes noted in the lung bases. No mass. Pleural space: Small volume layering bilateral pleural effusions are noted bilaterally, measuring up to 1 cm in thickness. No loculation. No pneumothorax. Heart: The cardiac chambers are borderline prominent. Mild to moderate coronary artery calcification is of uncertain clinical significance. No significant pericardial effusion. Bones/joints: A chronic nonunited posterior right eighth rib fracture is noted. No acute osseous abnormality. Bilateral shoulder arthroplasties noted. No dislocation. Soft tissues: Unremarkable. Lymph nodes: Unremarkable. No enlarged lymph nodes. Upper abdomen: Asymmetric prominent elevation of the left hemidiaphragm. IMPRESSION: 1. There is no evidence for pulmonary embolism. 2. There is heterogeneous interlobular septal thickening and peribronchial cuffing, most notable involving the right lung and left lower lobe. Findings are most consistent with interstitial pulmonary edema. Subsegmental changes noted in the lung bases may represent asymmetric edema or atelectasis. Infection is considered less likely. 3. Small volume layering bilateral pleural effusions are noted bilaterally, measuring up to 1 cm in thickness. No loculation. Electronically signed by: Richard Abernathy MD 02/21/23 22:29 PM Abdomen/Pelvis CT 02/22/23 07:51 CT abd pelvis wo con CLINICAL HISTORY: bilateral hydronephrosis, ureteral calculus TECHNIQUE: Helical axial images of the abdomen and pelvis were obtained. Automated dose lowering techniques and/or adjustment according to patient size were utilized for this exam. This exam was performed without intravenous contrast. CT DOSE: 572.70 mGy.cm COMPARISON: Comparison is made to CT abdomen pelvis 08/24/2022 FINDINGS: Lower chest: Bibasilar atelectasis versus scarring is seen. Small bilateral pleural effusions Liver: Unremarkable. No focal lesions are seen. Gallbladder and biliary tree: Vicarious excretion of contrast is seen. No intra- or extrahepatic biliary ductal dilation. Pancreas: Unremarkable, no focal lesions. Spleen: Unremarkable. Adrenals: Unremarkable. Kidneys and ureters: Renal cysts are seen. Bladder: Numerous bladder diverticula are seen. Reproductive organs: Prostatic calcifications are seen which may represent prior hemorrhage or granulomatous disease. Bowel: Unremarkable. Lymph nodes Retroperitoneal: Unremarkable. Pelvic: Unremarkable. Mese Lumbar Spine CT 02/21/23 20:18 Exam(s): CT L SPINE EXAM: CT Lumbar Spine Without Intravenous Contrast CLINICAL HISTORY: Acute on chronic R lower back pain. TECHNIQUE: Axial computed tomography images of the lumbar spine without intravenous contrast. CTDI is 22.99 mGy and DLP is 627.13 mGy-cm. Automated exposure control was utilized for the study. A dose lowering technique was utilized adhering to the principles of ALARA. COMPARISON: Plain radiographs 06/21/2020: CT abdomen and pelvis dated 08/24/2022 FINDINGS: Vertebrae: The vertebral bodies are stable in appearance without acute fracture. Stable appearing loss of height involving the superior endplate at L1 level. There is similar scoliosis, convex right with a 14 mm rightward listhesis of L3 on L4. There is a chronic fracture through the posterior left vertebral body at L1 level adjacent to the pedicle. 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 Discs/spinal canal/neural foramina: There is posterior fusion at L2 and L3 levels with pedicle screws and paraspinal rods, stable. 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 There is moderately severe disc spondylosis with narrowing and marginal hypertrophic changes at L1-2, L3-L4 and L5-S1. There are laminectomy defects at the level of the posterior fusion there is mild osseous neural foraminal encroachment at the left T12-L1 level. Otherwise no significant osseous canal stenosis. Soft tissues: Unremarkable. Vasculature: Atherosclerotic calcification of the aorta. Kidneys and ureters: There is a 5 x 9 mm proximal to mid right ureteral stone with at least moderate hydroureteronephrosis. There is mild left hydronephrosis without obvious collecting stone, where visible. Detailed evaluation limited. IMPRESSION: 1. The vertebral bodies are stable in appearance without acute fracture. Stable appearing loss of height involving the superior endplate at L1 level. There is similar scoliosis, convex right with a 14 mm rightward listhesis of L3 on L4. There is a chronic fracture through the posterior left vertebral body at L1 level adjacent to the pedicle. 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 The clinical significance of these findings is indeterminant. 2. There is a 5 x 9 mm proximal to mid right ureteral stone with at least moderate hydroureteronephrosis. 3. Scoliosis with multilevel degenerative changes and posterior fusion, as detailed above. Electronically signed by: Richard Abernathy MD 02/21/23 21:37 PM Chest CTA 02/21/23 21:26 Exam(s): CTA CHEST IV Amt: 119ml EXAM: CT Angiography Chest With Intravenous Contrast CLINICAL HISTORY: Evaluate for PE. TECHNIQUE: Axial computed tomographic angiography images of the chest with intravenous contrast. CTDI is 27.4 mGy and DLP is 469.15 mGy-cm. Automated exposure control was utilized for the study. A dose lowering technique was utilized adhering to the principles of ALARA. MIP reconstructed images were created and reviewed. COMPARISON: No relevant prior studies available. FINDINGS: Pulmonary arteries: There is no evidence for pulmonary embolism. Aorta: Atherosclerotic calcification of the aorta without aneurysm. Lungs: There is heterogeneous interlobular septal thickening and peribronchial cuffing, most notable involving the right lung and left lower lobe. Subsegmental changes noted in the lung bases. No mass. Pleural space: Small volume layering bilateral pleural effusions are noted bilaterally, measuring up to 1 cm in thickness. No loculation. No pneumothorax. Heart: The cardiac chambers are borderline prominent. Mild to moderate coronary artery calcification is of uncertain clinical significance. No significant pericardial effusion. Bones/joints: A chronic nonunited posterior right eighth rib fracture is noted. No acute osseous abnormality. Bilateral shoulder arthroplasties noted. No dislocation. Soft tissues: Unremarkable. Lymph nodes: Unremarkable. No enlarged lymph nodes. Upper abdomen: Asymmetric prominent elevation of the left hemidiaphragm. IMPRESSION: 1. There is no evidence for pulmonary embolism. 2. There is heterogeneous interlobular septal thickening and peribronchial cuffing, most notable involving the right lung and left lower lobe. Findings are most consistent with interstitial pulmonary edema. Subsegmental changes noted in the lung bases may represent asymmetric edema or atelectasis. Infection is considered less likely. 3. Small volume layering bilateral pleural effusions are noted bilaterally, measuring up to 1 cm in thickness. No loculation. Electronically signed by: Richard Abernathy MD 02/21/23 22:29 PM Abdomen/Pelvis CT 02/22/23 07:51 CT abd pelvis wo con CLINICAL HISTORY: bilateral hydronephrosis, ureteral calculus TECHNIQUE: Helical axial images of the abdomen and pelvis were obtained. Automated dose lowering techniques and/or adjustment according to patient size were utilized for this exam. This exam was performed without intravenous contrast. CT DOSE: 572.70 mGy.cm COMPARISON: Comparison is made to CT abdomen pelvis 08/24/2022 FINDINGS: Lower chest: Bibasilar atelectasis versus scarring is seen. Small bilateral pleural effusions Liver: Unremarkable. No focal lesions are seen. Gallbladder and biliary tree: Vicarious excretion of contrast is seen. No intra- or extrahepatic biliary ductal dilation. Pancreas: Unremarkable, no focal lesions. Spleen: Unremarkable. Adrenals: Unremarkable. Kidneys and ureters: Renal cysts are seen. Bladder: Numerous bladder diverticula are seen. Reproductive organs: Prostatic calcifications are seen which may represent prior hemorrhage or granulomatous disease. Bowel: Unremarkable. Lymph nodes Retroperitoneal: Unremarkable. Pelvic: Unremarkable. Mesenteric: Unremarkable. Peritoneum: Normal. Vessels: Atherosclerotic calcifications are seen. Abdominal wall: Unremarkable. Bones: Posterior fixation hardware is seen in the lumbar spine. Left total hip arthroplasty is seen. Right medullary nail is seen. Compression deformity of L1 is unchanged. IMPRESSION: No hydronephrosis is seen. Bilateral ureters are unremarkable. 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 ACT 112: Negative or not required by law. Electronically signed by: Francisco James M.D. 02/22/2023 9:41 AM nteric: Unremarkable. Peritoneum: Normal. Vessels: Atherosclerotic calcifications are seen. Abdominal wall: Unremarkable. Bones: Posterior fixation hardware is seen in the lumbar spine. Left total hip arthroplasty is seen. Right medullary nail is seen. Compression deformity of L1 is unchanged. IMPRESSION: No hydronephrosis is seen. Bilateral ureters are unremarkable. 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 ACT 112: Negative or not required by law. Electronically signed by: Francisco James M.D. 02/22/2023 9:41 AM 02/21/23 20:18 CT lumbar spine wo con Stat 08/17/23 21:26 CT angio chest PE protocol Stat 02/22/23 07:51 CT abd pelvis wo con Urgent Hospital Course (1) Pulmonary edema: (2) Pulmonary hypertension: (3) Cardiomyopathy: (4) Nephrolithiasis: Plan 82 y/o female with PMHx vitamin D deficiency, osteopenia, and OA was admitted due to back pain. - Stefanie presented due to right sided back pain. Initial CT found to have [id number] stone in right ureter. Urology was consulted, who recommended just medical management. Patient remain afebrile during hospitalization, and wbc count improved. Repeated CT was negative for stone. Urology recommended follow up as outpatient. Her pain resolved. -During the stay, Stefanie reported SOB that has been going on for 6 months. Oxygen saturation was 77% while off oxygen and some increased work of breathing while coming back from the bathroom. During rest oxygen Saturation remain in 80s%. CTA done showed findings of bilateral pulmonary edema. JARRETT was performed, found to have Severely reduced EF (25-30%), Global hypokinesis and RVSP of 66 mmHg. Cardiology was consulted, Entresto and low carvedilol dose was added to current medication management. Due to unclear etiology of cardiomyopathy we sent a full workup to rule out ischemic and non ischemic causes such as viral etiology, lyme disease and protein abnormalities. As recommended by Cardiology, Myocardia perfusion study was performed which confirm the dx of non-ischemic cardiomyopathy with EF of 25%, moderate to severe global hypokinesis with no focal wall motion abnormalities. She was recommended to follow up with cardiology, primary care physician and heart failure clinic. She did received single dose of lasix and her oxygen saturation improved to 95% on RA. Pulmonary HTN thought to be secondary to elevated LVEDP and possible underlying COPD in setting of extended h/o smoking. No PFTs were done in the hospital. Patient were started empirically on triple therapy. We strongly recommended PFTs on outpatient setting as well consideration of Pulmonary consu lt. -We strongly recommend follow up with Cardiology out patient -We suggest PFTs outpatient to confirm diagnosis of chronic lung disease -We strongly recommended follow up PCP within 1 week Total Time Total Time Spent Total Time Spent (In Minutes): see attestation note Discharge Plan Discharge Items Patient Disposition: Home - Self-Care Reason For Visit: BACK PAIN Discharge Diagnosis: non-ischemic cardiomyophathy Activity: Resume your previous activity Non-emergency contact: Primary Care Provider Call non-emergency contact if: you have any medication questions Follow-up/Referrals: ,Hammad Meyer MD [Primary Care Provider] - 03/05/23 11:00 am (APPOINTMENT WITH [facility]) Diet: Heart Healthy Addtl Attending Provider Instructions: (presumed) COPD -Given the way her breathing has looked, and the overall slow progression of worsening breathing over the last year, I am strongly suspicious that you have at least moderate COPD - COPD (chronic obstructive pulmonary disease)essentially is where we are not able to move air in and out of our lungs quite as well as we used to, making it overall harder/more laborous to breathespecific to you, the reduction in ability to move air would probably be a combination of years of smoking, and the lung volume that you lost with the surgery - we will want you to get pulmonary function tests (PFTs, spirometry) in the near future to truly quantify thisI tried to get it done while you are in the hospital, but it is 1 of those "silly bureaucratic things" where it has become a purely outpatient test. To that end what I was able to see was consistent enough with COPD to assume that is probably a large portion of your chronically worse breathing ( the findings that make me suspicious of this are: your breathing, your lack of significant shortness of breath when your pulse ox numbers were a little low, your lungs on CT to a degree, and the low air movement when the respiratory therapist had to do peak flow exhalation readings) - While the pulmonary function test will truly define things, given your breat collette, and given my high level of suspicion, we have gone ahead and started a "full court press" of inhalersfor COPD there are 3 classes of inhalersanticholinergics (long-acting muscarinic antagonist, LAMA), inhaled steroids (ICS), and long-acting beta agonistsL (LABA) - for now I opted to start all 3. As time progresses, depending on what your pulmonary function tests show, and how your breathing is going, Dr. Soria will either keep you on all 3 (and possibly add an albuterol "rescue" inhaler) or if you continue to surprise me and do better/your pulmonary function tests are better than it looks like they would be, he might be able to reduce them down to less inhalers, with the anticholinergic typically being the most important for COPD - for most of your hospital stay, it was looking like you would likely need chronic oxygen; as of the time of this writing (late in the afternoon 02/24) I am pleasantly surprised that it is looking like you probably do not at this timeat the same time, I would highly recommend you get a pulse ox (the finger clip device that measures oxygen) so you can follow what your numbers areif you see in the "real world" that you are often dipping below 90%, that would be a pretty good hint that you would need some oxygen (for perspective, truly normal would probably be about 97% and up, "livable" is usually about 90% and upbut even the low 90s is not truly normal) - when you look at the results of your echocardiogram on the patient portal, you will also see that there is elevated blood pressure in your lungsthis is almost certainly subsequent to COPD, as the to go [id number] very frequently. Dr. Soria will continue to follow-up on this, and there are times where high blood pressure in the lungs is subsequent to sleep apnea instead, but your situation does not really look consistent with this. Also, we can sometimes alleviate some of the shortness of breath that people feel simply from the high blood pressure in the lungs by using oxygen just when people sleep, although for now I would defer for further follow-up with Dr. Soria specific to this portion of things given how many other new medications/diagnoses/etc. were introducing right now) dilated cardiomyopathy (weak heart squeeze) - your heart squeezes weaker than averagethe echocardiogram showed 25-30%, normal would be 55-65%. - With your stress test being negative, it almost certainly is related to the chronic lung diseasethe added strain on your heart of not breathing well slowly over time can make things weaker - treating the lung disease, and breathing better should help prevent the heart from getting weaker, and sometimes heart muscle is "stunned" where things can heal and get stronger if no longer under duress - in addition to treating the lung disease, medications to take strain off of your heart can really be highly beneficial to improving her heart function, and keeping out of trouble - "getting in trouble" from the weak heart is generally most going to show up as pulmonary edemafluid the traffic jams back into your lungs, as happened on Saturday morning. - While during this admission, you likely had the pulmonary edema as a backup from physical stress and strain on your heart from the pain from the kidney stone, most commonly we see people get into trouble by retaining too much fluidmost of the time because of sodium in their diet - when our kidneys see a little bit of salt, they hold onto a little bit of water; therefore when our kidneys see a lot of salt, they hold onto a lot of water. Because of this, we will want you to start to pay pretty close attention to the sodium in your dietas we discussed, I have a feeling you do not find your way into a lot of sodium to begin with, because your heart has probably been this week for quite a while, and you have not been in and out of the hospital with pulmonary edema before. - that said, about 90% of the time when people get admitted to the hospital with fluid in the lungs, something in their diet is the "spark that lit the fire"with sodium being the culprit the huge majority of the time. - I bet you will do well if you just stick to a moderate sodium restrictionsomewhere in the neighborhood of less than 2000 mg of sodium in a day, and less than about 500 mg of sodium in any given serving. - We will want you to start to look at labels, look at how much sodium is in a serving, and look at the size of the servingfor instance, as we looked at Che[employer] mix, it was about 220 mg of sodium per serving, but a serving was only half a cupand we both agreed that a real serving would probably be more like a full cupwhich will be more 440 mg of sodium for a "real serving"When we look at how that would fit into your "sodium budget"440 mg would leave you plenty of wiggle room on the 2000 mg in a day, and would be under 500 mg for anyone servingso it would actually be okay. Where I see people get into serious trouble tends to be more with soups and microwave mealsgiven that a typical bowl of soup can have the better part of 2000 mg and 1 bowl, and most microwave meals are at least in the neighborhood of 1000 mg in the meal (if not more sometimes) - hopefully we will not need you to be on a water pill (Lasix, furosemide) on a regular basisthis can be annoying, and given that the diuretic will act whether you are over hydrated, appropriately hydrated, or dehydrated, it is definitely a double edge swordand hopefully between the Entresto and Coreg, we will only need the diuretic at times that you show signs of fluid accumulation - as far as symptoms: Most commonly people will first start to notice pulmonary edema/fluid accumulation because of new shortness of breathparticularly with exertion or lying flat, or if you have a pulse ox at home, that you start to see new shortness of breath and pulse ox numbers that are lower than you normally run - it also can be useful to weigh yourself daily: Given that it would be almost impossible to gain more than a pound over a day, we typically look at somebody gaining 2 pounds or more over a day as fluid retention ---> this would mean if you pay attention to symptoms and weight, if you see weight gain and new respiratory symptoms, Dr. Soria would have you on Lasix (furosemide) for a few days to pull off the extra fluid; if you only have the weight gain, he may have you monitor closely for respiratory symptoms but hold off on the Lasix, and if you have respiratory symptoms with no weight gain, he will almost certainly need to see you to distinguish fluid/pulmonary edema related shortness of breath versus COPD related shortness of breath - while this seems like a lot, its "high maintenance but easy" once you get into the rhythm of things - in a few months, they'll repeat an echocardiogram - we do see times where with treatment ejection fractions improve back pain - as we discussed, while you were spinal disease/arthritis/postsurgical changes are the "root cause" of the chronic back pain, I generally seeand definitely with youthat a lot of people have pain that is not just from the bones/arthritis/discs/etc. - It looks like you have a good bit of surrounding pain from the muscles and ligaments that attach to those bonesmost notably your paraspinal muscles on the right side - while working on the muscles obviously will get the spinal disease better, in my experience (especially whenever I was in the office and my friends and colleagues would send me a lot of difficult situations with back painvery similar to yours) working on the muscles becomes very worthwhile over time as getting the muscles looser and keeping them looser often does a good job for overall pain control - generically speaking, most people that I saw and situation similar to yours, if their pain was a "pie chart" about 40% was from the bone/disc/spine disease, about 40% was from the tight muscles, and the remainder was from nerve irritation/"facilitation" - I definitely recommend putting the Voltaren gel on her paraspinal muscles 34 times a day (you can do that indefinitely), and using your TENS unit on your paraspinal muscles fairly frequently - additionally, I would have you see one of our DO colleagues in the office that does manipulative medicineDr. Pro has 2 partners (Dr. Joao Lerner in the offices up near [facility], and Dr. Eron Savage in the office is over on [employer]) who do hands-on manipulative medicine (OMT) as a significant part of their practice - basically they would see you as a "OMT identity management consultant" working on the back, and trying to get the muscles loosergiven how long this has been going on, it may take a few months of working on you before things start to feel looser, sometimes things feel worse before they feel better, but in my experience a pretty big majority of people would get enough pain relief that it would become worth her while. The main question would end up being how often you need to be seen once things are ahead of the painideally being able to spread out visits enough that you do not feel like you are living in the office, but get enough lasting pain relief that it is worth the effort for you. foot skin blistering - definitely would want Dr. Dickens to take a look at this as well before you leave the hospital, since she is a family physician as well, but unlike me, she is still active in an office practice, so she will be better versed at outpatient issues that I currently am - Given that my guess of friction ended up not really adding up given that you wear good supportive shoes and always wear socks, and given that the answers from dermatology are not really getting things better, I do not have a great answer for what is going on; but I think looking in a different direction might be helpful. Since a "football pad repairer" and a applied anthropologist were coming up empty, and it is a foot problem, I have you see [facility] podiatryI have seen him to be very good, and given that it is a problem on the foot, he might have a bit of a "pattern recognition" that gets a good answer to help this kidney stone - in the end, what actually brought you to the hospital was fairly simple, short-lived, and basically "took care of itself"the dramatically worse, dramatically different back pain that you are having when you came to the ER, associated with nausea and vomiting, all definitely fit with a kidney stone. I really suspect given how your symptoms came on and then vanished, that the CT of your lumbar spine in the ER showing a kidney stone and a swollen kidney, followed by the dedicated CT looking for the kidney stone the next day looking normal, simply meant that you passed the stone. It certainly would be a little bit bigger than we would expect somebody to pass, but there is always a small but real chance that stones that size will pass on their own, and your symptoms were very characteristic of having passed a stone. - It is probably a good thing that the stone brought you to medical attention, given that we had pretty significant issues (with your heart and lungs) that probably would only get worse without treatment, and now that were on top of themI suspect that we can do a lot to keep you feeling good for the long-term future New medications - Carvedilol 3.125 mg PO twice a day - Entresto 26/24 mg PO BID - Fluticasone/[place] 100/25 Mcg 1 puff daily -Umeclidinium [place] 1 puff daily Continue these medications -Tymlos 80 mcg -Vitamin D13 -Vitamin B-12 - Meloxicam 15 mg Pending Studies at Discharge: No Stand-Alone Forms: [facility] [employer], Smoking Cessation Medications and DC Order Prescriptions: New carvedilol 3.125 mg Tablet 3.125 mg PO BIDM Qty: 60 1RF Incruse Ellipta 62.5 mcg/actuation Blister With Device 1 inh inhalation QAM Qty: 30 1RF Entresto 24-26 mg Tablet 1 tab PO BID Qty: 60 1RF Continued Systane (PF) 0.4-0.3 % Dropperette 1 drp OPHTHALMIC (EYE) BID PRN (Reason: Dry Eyes) PreserVision AREDS-2 250-90-40-1 mg Capsule 1 tab PO AMHS methocarbamol 500 mg tablet 250 mg PO DAILY PRN (Reason: Pain) meloxicam 15 mg tablet 15 mg PO HS acetaminophen 500 mg Tablet 500 mg PO Q6H PRN (Reason: Fever Or Pain) Tymlos 80 mcg (3,120 mcg/1.56 mL) pen injector 80 mcg SUBCUT HS cyanocobalamin (vitamin B-12) [Vitamin B-12] 1,000 mcg Tablet 1,000 mcg PO QAM calcium citrate-vitamin D3 [Citracal + D Maximum] 315 mg-6.25 mcg (250 unit) Tablet 1 tab PO QAM Discharge Orders: Discharge Order- CHF (Routine); Ordered 02/26/23 Ordered By: Alda Choi Admission Data Admit Date/Time: 02/22/23 00:04 Attending Provider: Emerald Dickens Admit Provider: Jhony Spencer Primary Care Provider: Hammad Soria Other Providers: Vishnu Norman ; Anderson Tang ; Glen Farooq ; Abisai Butts Other Interventions: Discharge Summary Assessment (RN) Last Done: 02/26/23 13:10 Supervising Physician Co-Signing Physician Notes Resident Physician Supervision Note: I independently interviewed and examined the patient and verified the [place]urston history and physical, reviewed labs and image studies and agree with resident findings and care plan.
--- NOTE | 2023-02-26 13:08 | Myocardial Perfusion Study ---
Date of Service February 26, [address] [facility] Myocardial Perfusion Study Report ONE DAY NUCLEAR MEDICINE LEXISCAN TECHNETIUM 99M MYOCARDIAL PERFUSION SCAN Indication: Cardiomyopathy Baseline ECG: Normal sinus rhythm with sporadic PVCs. Stress ECG: No Lexiscan induced ST changes. Occasional PVCs. Hemodynamics: HR tez from 71 bpm to 104 bpm representing 75% MPHR. BP 111/64mmHg to 136/71 mmHg. Technique: For the stress portion of the study 31.2 mCi of Technetium 99m Cardiolite IV was injected at 09:08 on 02/26/2023. 30 minutes following the injection, imaging of the heart was performed in multiple projections. For the rest portion of the study, 10.4 mCi of Technetium 99m Cardiolite was injected IV at 07:33. One hour following the injection, imaging of the hear was performed in the same projections. Raw images: Rotating raw images were reviewed in detail. Potential sources of attenuation include breast shadowing and significant gut uptake impacting the anteroapical and inferior imaging borders of the heart. No significant extracardiac pathologic uptake. Perfusion images: Short axis, vertical long axis and horizontal long axis images were reviewed in detail. Left ventricle moderately dilated with no obvious visual transient ischemic dilation. Moderate fixed defect in the inferior and anteroapical regions were felt to be due to diaphragm/breast attenuation. No significant reversible perfusion defects to suggest ischemia were identified. Gated images: LV is moderately dilated. Moderate to severe global hypokinesis. EDV 122 ml.ESV 41 ml. Calculated EF 25%. . SUMMARY: 1. Lexiscan myocardial perfusion study negative for infarct or ischemia. 2. Moderately dilated left ventricular size with severely reduced systolic function. Calculated ejection fraction 25%. Moderate to severe global hypokinesis with no focal wall motion abnormalities. 3. No Lexiscan induced ECG changes. 4. No anginal symptoms. [facility] Indication for Procedure (1) Cardiomyopathy: Procedure Code Procedure 1: Myocardial Perfusion Codes: 01418 Cardiovascular Stress Test, multiple Procedure 2: Myocardial Perfusion Codes: 37932 Cardiovascular Stress Test, supervision only Procedure 3: Myocardial Perfusion Codes: 48989 Cardiovascular Stress Test, interpretation and report
[2023-02-26 16:07] LABS: Albumin 3.1 g/dL (3.8-4.8); Alpha 1 Globulin 0.3 g/dL (0.2-0.3); Alpha 2 Globulin 0.7 g/dL (0.5-0.9); Beta-1-Globulin 0.3 g/dL (0.4-0.6); Beta-2-Globulin 0.2 g/dL (0.2-0.5); Gamma Globulin 0.5 g/dL (0.8-1.7); Monoclonal Protein Band 1 DNR g/dL (NONE DETECTED); Monoclonal Protein Band 2 DNR g/dL (NONE DETECTED); Monoclonal Protein Band 3 DNR g/dL (NONE DETECTED)
[2023-02-27 07:17] LABS: Abnormal Protein Band 1 DNR mg/24 h (NONE DETECTED); Abnormal Protein Band 2 DNR mg/24 h (NONE DETECTED); Abnormal Protein Band 3 DNR mg/24 h (NONE DETECTED); Creatinine, 24 hr Urine 0.55 g/24 h (0.50-2.15); Protein, Urine 24 Hour 107 mg/24 h (<150); Ur Protein/Creatinine Rat mg/g 196 mg/g creat (<150); Urine Protein/Creatinine Ratio 0.196 (<0.150)
== END 2023-02-26 13:39 | disposition home or self-care (01) | DRG 693 ==
LOC: ED 19:42 → SUATTDRO 02-22 00:04 → 3E 02-22 00:04

== ENCOUNTER 2023-04-22 15:09 | Inpatient (IN) ==
[2023-04-22] MEDS ORDERED: SODIUM CHLORIDE 0.9% 500 ML IV STA (15:28)
[2023-04-22] MEDS ORDERED: ONDANSETRON INJ 2 MG/ML 2 ML VIAL IV STA ×2 (15:28→15:39)
[2023-04-22] MEDS ORDERED: SODIUM CHLORIDE 0.9% 1,000 ML IV ONE (15:39)
[2023-04-22] MEDS ORDERED: MoRPHine SULFATE 2 MG/ML CARP IV STA ×3 (15:39→16:24)
[2023-04-22] MEDS ORDERED: KETOROLAC TROMETHAMINE 15 MG/ML VIAL IV ONE (16:24)
[2023-04-22 16:40] LABS: Basophils # (auto) 0.14 K/uL (0.00-0.20); Eosinophils # (auto) 0.16 K/uL (0.00-0.50); Eosinophils % (auto) 1.2 %; Hematocrit (blood only) 41.2 % (37.0-47.0); Hemoglobin 13.8 g/dl (12.0-16.0); Immature Granulocytes # (auto) 0.05 K/uL (0.01-0.20); Immature Granulocytes % (auto) 0.4 %; Lymphocytes # (auto) 2.01 K/uL (1.20-3.40); Lymphocytes % (auto) 14.5 %; Mean Corpuscular Hemoglobin 28.9 pg (25.0-34.0); Mean Corpuscular Hgb Conc 33.5 g/dL (32.0-36.0); Mean Corpuscular Volume 86.4 fL (80.0-100.0); Mean Platelet Volume 9.5 fL (9.4-12.4); Monocytes # (auto) 1.02 K/uL (0.11-0.59); Monocytes % (auto) 7.4 %; Neutrophils # (auto) 10.44 K/uL (1.40-6.50); Neutrophils % (auto) 75.5 %; Platelet Count 282 K/uL (130-400); RDW Coefficient of Variation 13.4 % (11.5-14.5); RDW Standard Deviation 42.1 fL (36.4-46.3); Red Blood Count 4.77 M/uL (4.20-5.40); White Blood Count 13.82 K/ul (4.8-10.8)
[2023-04-22 16:57] LABS: Appearance Urine Clear (Clear); Bacteria Urine Automated Negative (Negative); Bilirubin Urine Negative (Negative); Blood Urine 1+ (Negative); Color Urine Yellow; Glucose Urine UA Negative (Negative); Ketones Urine 2+ (Negative); Leukocyte Esterase Urine Negative (Negative); Nitrite Urine Negative (Negative); Protein Urine Trace (Negative); Specific Gravity Urine 1.012 (1.000-1.030); Urobilinogen Urine Negative (Negative); pH Urine 6.5 (4.5-7.5)
[2023-04-22 17:00] LABS: Albumin Globulin Ratio 1.6 (0.9-2); Albumin Level 4.5 gm/dl (3.4-5.0); BUN Creatinine Ratio 29.3 (10-20); Bilirubin,Total 0.8 mg/dl (0.2-1.0); Calcium 10.1 mg/dl (8.6-10.3); Est GFR (African American) 85.4 ml/min; Est GFR (Non-African American) 73.7 ml/min; Globulin 2.9 gm/dl (2.5-4.0); Potassium 3.6 mmol/L (3.5-5.1); Total Protein 7.4 gm/dl (6.0-8.3)
--- NOTE | 2023-04-22 18:44 | CT Scan Report ---
ABDOMEN AND PELVIS CT WITHOUT CONTRAST CT DOSE: 500.97 mGy.cm HISTORY: Acute right-sided flank pain right flank pain TECHNIQUE: Multiaxial CT images of the abdomen and pelvis were performed without contrast. A dose lo wering technique was utilized adhering to the principles of ALARA. COMPARISON STUDY: 02/22/2023 FINDINGS: Coronary artery calcifications. Mild mucoid impaction within the right lower lobe with mild linear atelectasis versus scarring within the right lung base. There is chronic left hemidiaphragmat ic elevation. No free air. The unenhanced spleen, visualized pancreas and adrenal glands are unremark able. Limited study without the use of IV contrast and also secondary to streak artifact from the met allic hardware within the hips and lumbar spine. Unremarkable liver. Previously noted cholelithiasis is not definitively seen. Complex and simple cysts of the kidneys are again noted with complex cyst measuring up to 1.3 cm on t he right there is moderate right-sided hydroureteronephrosis. There is a 7 x 6 x 9 mm calculus within the right ureter at the level of L5-S1. Reactive perinephric and periureteral inflammatory stranding . Pelvic structures are not well visualized secondary to the aforementioned streak artifact. Atherosc lerosis of the aorta. No lymphadenopathy identified. No bowel obstruction or bowel wall thickening identified. No acute fra cture. Healed chronic pelvic ring fracture deformities. Chronic L1 compression deformity. Unchanged a ppearance of the lumbar spinal fusion hardware. IMPRESSION: 1. Moderate right-sided hydroureteronephrosis secondary to an obstructing 9 mm ureteral calculus at t he level of L5-S1. 2. No bowel obstruction or bowel wall thickening. 3. Additional findings as above. ACT 112: Negative or not required by law. The above report was generated using voice recognition software. It may contain grammatical, syntax o r spelling errors. Electronically signed by: Gregg Paredes M.D. 04/22/2023 6:42 PM
--- NOTE | 2023-04-22 19:09 | History & Physical Report ---
Date of Service April 22, 2023 Assessment & Plan (1) Hydroureteronephrosis: Plan: -Admit to med/surge -Currently stable with pain well-controlled -Presented to the ED today for ongoing right back/flank pain -CT of the abd/pelvis wo con shows Moderate right-sided hydroureteronephrosis secondary to an obstructing 9 mm ureteral calculus at the level of L5-S1 -Similar pain as her last stone in February; she and her family confirm the previous stone was of similar size, she was able to pass it herself -Renal function is stable, no signs of infection, will hold abx at this time -Urology has been consulted and will evaluate the patient tomorrow for possible stent placement -Pain control with prn Tylenol and Morphine; prn Narcan on board for oversedation -S/P 1.5L NSS in the ED; will hold further abx at this time due to the patient's significantly reduced EF to avoid volume overload -Hold chemical DVT PPX in case of stent placement tomorrow; BL JUNG's for now -HH diet with 2gm sodium restriction until midnight then NPO -AM CBC, BMP, Mag, PT/INR (2) COPD (chronic obstructive pulmonary disease): Plan: -Stable on RA -No wheezing on exam -Continue Incruse Ellipta -Incentive spirometry (3) HFrEF (heart failure with reduced ejection fraction): Plan: -Currently euvolemic -Hold additional IV fluids for now to avoid volume overload -Continue entresto (4) Hypertension: Plan: -Stable -Continue BID Carvedilol Plan The patient was seen and discussed with Dr. Crandall at the time of the admission History of Present Illness Chief Complaint: Right-sided abdominal pain Primary Care Provider: Hammad Soria MD Stefanie is an 82 year old female with a PMH significant for HFrEF (LVEF of 25-30% as of 02/2023), HTN, degenerative disc disease (s/p lumbar, spinal surgery), chronic back pain, and osteopenia who presented to the [facility] ED on 04/22 due to right-sided abdominal pain. She remained stable while in the ED. Labs were significant for a leukocytosis of 13 with neutrophil predominance of 10, and UA with 2+ ketones, 1+ blood, 10-30 RBC's, with bacteria. Prior to admission the patient was given 1.5L NSS, 6 mg total IV morphine, 10 mg IV toradol, and 8 mg IV zofran. At the time of the exam the patient was lying in bed in no acute distress with her Daughter sitting bedside, history was obtained from both. The patient started to develop right back/flank pain last night. This pain felt very similar to the pain from her first kidney stone when she was admitted in February. The pain continued and was associated with nausea but no vomiting, they came to the ED as they were concerned she had another kidney stone. Her pain is currently well controlled after receiving morphine in the ED. She denies recent fever, chest pain, SOB, dysuria, increased urinary frequency, hematuria, diarrhea, LE swelling, and recent trauma. She and her duaghter confirmed she has a living will and is a Full Code. Please refer to Dr. Crandall's attestation for any changes to the treatment plan Allergies Allergy/AdvReac Type Severity Reaction Status Date / Time codeine AdvReac Mild NAUSEA/VOMI Verified 04/16/23 07:56 T morphine AdvReac Mild NAUSEA/VOMI Verified 04/16/23 07:56 T Home Medications Medication Instructions Recorded Confirmed Type peg 400-propylene glycol (PF) 0.4 1 drp ophthalmic (eye) BID PRN Dry 05/21/19 04/22/23 History %-0.3 % eye drops in a dropperette Eyes (Systane (PF)) acetaminophen 500 mg tablet 500 mg PO Q6H PRN Fever Or Pain 02/21/23 04/22/23 History calcium citrate 315 mg 1 tab PO QAM 02/21/23 04/22/23 History calcium-vitamin D3 6.25 mcg (250 unit) tablet (Citracal + Vitamin D Maximum) cyanocobalamin (vitamin B-12) 1,000 mcg PO QAM 02/21/23 04/22/23 History 1,000 mcg tablet (Vitamin B-12) vit C 250 mg-vit E 90 mg-zinc 40 1 tab PO BID 02/21/23 04/22/23 History mg-copper 1 [id number] capsule (PreserVision AREDS-2) carvedilol 3.125 mg tablet 3.125 mg PO BIDM #60 tabs 02/26/23 04/22/23 Rx sacubitril 24 mg-valsartan 26 mg 1 tab PO BID #60 tabs 02/26/23 04/22/23 Rx tablet (Entresto) umeclidinium 62.5 mcg/actuation 1 inh inhalation QAM #30 ea 02/26/23 04/22/23 Rx blister powder for inhalation (Incruse Ellipta) potassium chloride 10 mEq 10 meq PO DAILY PRN Take with 03/07/23 04/22/23 Rx tablet,extended release furosemide #30 tabs furosemide 40 mg tablet 40 mg PO DAILY PRN weight gain #90 04/11/23 04/22/23 Rx tabs Past Med/Surg History Medical History (Updated 04/23/23 @ 11:42 by Zeus Burgess MD) Adenocarcinoma of lung Per chest CT 12/08/18: "No evidence for recurrent malignancy status post left upper lobectomy." Chronic systolic (congestive) heart failure per record, note from dr. lakhani>"The patient is an 82-year-old female admitted on February 22 with right-sided lower back pain. A CT scan noted a 9 by 5 right-sided ureteral stone with hydroureteronephrosis. She was able to pass the stone with conservative management. She did complain of shortness of breath while hospitalized and was noted to be hypoxic. A CT scan of the chest was performed to rule out a pulmonary embolism. Fortunately, no pulmonary embolism was identified, however, she was noted to be in pulmonary edema. An echocardiogram was performed which noted moderate to severe left ventricular dysfunction with ejection fraction of 25-30%. There was mild LVH and mild mitral regurgitation." pt started on Entresto and carvedilol, will be f/u w/dr. lakhani again "in the near future" per pt. Degenerative disc disease Dry eye syndrome Hx of renal calculi passed on own Hypertension Lumbar facet arthropathy Osteoarthritis Psoriasis Pulmonary hypertension Pulmonary nodule Surgical History Family history of reaction to anesthesia MOTHER, SISTER AND DAUGHTER NAUSEA Fusion of spine 4 LUMBAR FUSIONS (TOTAL 3-4 BACK SURGERIES) H/O cervical spine surgery GOOD ROM H/O foot surgery LEFT H/O wrist surgery RT History of arthroscopy RT KNEE History of bilateral tubal ligation History of cataract surgery RT/LEFT History of colonoscopy History of dilatation and curettage D&E 1971 History of herniorrhaphy History of lobectomy of lung UPPER LEFT LOBE History of open reduction and internal fixation (ORIF) procedure lt hip fx. History of shoulder surgery RT REVERSAL TSA; LT Reverse History of tooth extraction History of total left knee replacement Nausea and vomiting after administration of anesthetic agent Family History Other No significant family history Social History Smoking Status: Former smoker Tobacco Type: Cigarettes Cigarettes Per Day: 20; Second Hand Exposure: No; Do You Dip or Chew Tobacco: No; Tobacco Cessation Education Requested by Patient: No Hx Alcohol Use: No Hx Substance Use: Yes Preferred Language: Kazakh Communication Ability: Effective Communication Tools: Other Patient Ombudsperson Required: No Beliefs That Will Affect Care: None marital status: / Current Living Situation: Alone Current Living Situation Comment: Lives alone at home current occupational status: retired Other Information That Helps Us Care for You: No Feels Safe at Home: Yes Safety Concerns: Feels Safe At This Time Dental Care, Regularly: No Physical Activity Frequency: 3-4 Times per Week Seatbelt Use: always Sunscreen Use: Yes Assistive Devices: None Physical Exam Physical Exam: Physical Exam: General: In no acute distress, stated age, well-nourished, good hygiene HEENT: Normocephalic, atraumatic, no scleral icterus, pupils around round, symmetrical, and reactive to light, moist mucus membranes, trachea midline, no thyromegaly Chest/Pulm: No respiratory distress, symmetrical chest expansion, clear breath sounds throughout Cardiac: RRR, no murmurs noted Abdomen: Negative for ascites and bruising, normoactive bowel sounds, soft, non-tender to palpation throughout Musculoskeletal: Symmetrical and without signs of acute trauma, upper and lower extremities with full ROM, no atrophy, spasticity, or flaccidity Extremities: Radial, dorsalis pedis, and posterior tibial pulses are intact and symmetrical, no edema noted in the BL LE's Skin: Warm, dry, no rashes , lesions, or scars noted Neuro: Alert and oriented to person, place, month, year, and president, no focal defects,no tremors noted Psych: No acute distress, calm and cooperative during the exam Results & Data Results & Data Vital Signs (Past 12 Hours) Vital Signs Pulse Pulse Resp BP BP Pulse Ox O2 Del Method 04/22/23 18:30 91 H 18 113/56 L 95 04/22/23 18:00 93 H 19 94/58 L 96 04/22/23 17:30 80 18 185/88 H 04/22/23 17:00 92 H 18 153/79 H 04/22/23 17:21 74 20 153/79 H 98 Room Air 04/22/23 16:30 89 18 145/87 H 95 04/22/23 16:00 67 28 H 172/89 H 94 04/22/23 15:30 80 04/22/23 15:24 93 H 15 185/101 H 97 Room Air Laboratory Results Abnormal lab results 04/22/23 04/22/23 04/22/23 Range/Units 16:15 16:15 16:36 WBC 13.82 H (4.8-10.8) K/ul Neut # (Auto) 10.44 H (1.40-6.50) K/uL Schley # (Auto) 1.02 H (0.11-0.59) K/uL BUN/Creatinine Ratio 29.3 H (10-20) Glucose 128 H (70-99(Fasting)) mg/dl Urine Protein Trace H (Negative) Urine Ketones 2+ H (Negative) Urine Blood 1+ H (Negative) Urine RBC (Auto) 10-30 H (0-4) /hpf U Epithel Cells (Auto) 5-10 H (0-5) /lpf Diagnostic Findings Abdomen/Pelvis CT 04/22/23 16:[address] WITHOUT CONTRAST CT DOSE: 500.97 mGy.cm HISTORY: Acute right-sided flank pain right flank pain TECHNIQUE: Multiaxial CT images of the abdomen and pelvis were performed without contrast. A dose lowering technique was utilized adhering to the principles of ALARA. COMPARISON STUDY: 02/22/2023 FINDINGS: Coronary artery calcifications. Mild mucoid impaction within the right lower lobe with mild linear atelectasis versus scarring within the right lung base. There is chronic left hemidiaphragmatic elevation. No free air. The unenhanced spleen, visualized pancreas and adrenal glands are unremarkable. Limited study without the use of IV contrast and also secondary to streak artifact from the metallic hardware within the hips and lumbar spine. Unremarkable liver. Previously noted cholelithiasis is not definitively seen. Complex and simple cysts of the kidneys are again noted with complex cyst measuring up to 1.3 cm on the right there is moderate right-sided hy droureteronephrosis. There is a 7 x 6 x 9 mm calculus within the right ureter at the level of L5-S1. Reactive perinephric and periureteral inflammatory stranding. Pelvic structures are not well visualized secondary to the aforementioned streak artifact. Atherosclerosis of the aorta. No lymphadenopathy identified. No bowel obstruction or bowel wall thickening identified. No acute fracture. Healed chronic pelvic ring fracture deformities. Chronic L1 compression deformity. Unchanged appearance of the lumbar spinal fusion hardware. IMPRESSION: 1. Moderate right-sided hydroureteronephrosis secondary to an obstructing 9 mm ureteral calculus at the level of L5-S1. 2. No bowel obstruction or bowel wall thickening. 3. Additional findings as above. ACT 112: Negative or not required by law. The above report was generated using voice recognition software. It may contain grammatical, syntax or spelling errors. Electronically signed by: Gregg Paredes M.D. 04/22/2023 6:42 PM Code Status & VTE Plan Code Status Full code VTE Prophylaxis Plan VTE Prophylaxis will be ordered: Yes Supervising Physician Co-Signing Physician Notes Patient seen and examined, chart reviewed, case discussed with MOI Cabral and I agree with the assessment and plan as documented above. In brief, patient is an 82yo female presenting with right flank pain. Patient has chronic low back p ain. She presents with worsening right flank pain as well as nausea and dry heaving. She denies dysuria, fever, chills. No additional complaints at this time. Found to have a 9mm ureteral calculus obstructing. Patient did have a 5x9mm proximal right ureteral stone with moderate hydronephrosis noted on a lumbar spine CT from 02/21/23. Patient reports that her pain tonight was similar. She also reports that she was straining her urine in February and did pass a stone that looked like a crystal. On exam patient is afebrile, HD stable, resting comfortably Skin- warm, dry, intact, no rash HEENT - MMM, Neck supple, no JVD Heart - +S1/S2, regular Lungs - CTA Abd - soft, NT/ND, no masses/organomegaly Ext - warm, well perfused. Arthritic changes noted on bilateral hands/wrists Labs and images reviewed Assessment/Plan -Pain control -Flomax -Urology consultation -Remainder of plan as above PG Care Time/CCT Total # of Minutes Spent Total Time Spent with Patient: Total time spent is greater than 50% in coordination of care (as documented) at patient's floor/unit and/or counseling patient: C[place] [id number] INT INP/OBS CARE 2/55MIN Patient Type Established Medical Decision Making Moderate Complexity Diagnoses Hydroureteronephrosis N13.30 COPD (chronic obstructive pulmonary disease) J44.9 HFrEF (heart failure with reduced ejection fraction) I50.20 Hypertension I10
[2023-04-22] MEDS ORDERED: TAMSULOSIN HCL 0.4 MG CAP PO ONE (19:31)
[2023-04-22] MEDS ORDERED: ACETAMINOPHEN 325 MG TAB PO PRN (19:32)
[2023-04-22] MEDS ORDERED: NALOXONE HCL 0.4 MG/1 ML VIAL/CARP IV PRN (19:38)
[2023-04-22] MEDS ORDERED: INFLUENZA VACCINE HIGH-DOSE (HD-IIV4) PF 65+ 0.7mL SYR IM ONE (20:25)
[2023-04-22] MEDS ORDERED: VALSARTAN/SACUBITRIL 26/24MG TAB PO ONE (21:00)
[2023-04-22] MEDS ORDERED: carvediloL 3.125 MG TAB PO ONE (21:00)
--- NOTE | 2023-04-22 21:36 | Emergency Department Note ---
History of Present Illness General Chief complaint: Illness Stated complaint: DRYY HEVES, BACK PAIN Time Seen by Provider: 04/22/23 15:31 Source: patient, family (Daughter who is at the bedside), RN notes reviewed and old records reviewed (I have reviewed several CAT scans from about 2 months ago) Limitations: no limitations History of Present Illness Maximum Pain Intensity: 0 This patient 82-year-old female who comes in with significant right flank pain that started last night. She had a kidney stone 2 months ago and says it feels similar. She was admitted to the hospital to time but did not require any intervention and says she passed it. She denies any fever chills. no radiation to the abdomen no dysuria hematuria no numbness weakness no chest pain or shortness of breath no trauma or injury. She does have chronic back issues as well and thought it was her back at first but says it feels like her previous kidney stone Home Medications Medication Instructions Recorded Confirmed Type peg 400-propylene glycol (PF) 0.4 1 drp ophthalmic (eye) BID PRN Dry 05/21/19 04/22/23 History %-0.3 % eye drops in a dropperette Eyes (Systane (PF)) acetaminophen 500 mg tablet 500 mg PO Q6H PRN Fever Or Pain 02/21/23 04/22/23 History calcium citrate 315 mg 1 tab PO QAM 02/21/23 04/22/23 History calcium-vitamin D3 6.25 mcg (250 unit) tablet (Citracal + Vitamin D Maximum) cyanocobalamin (vitamin B-12) 1,000 mcg PO QAM 02/21/23 04/22/23 History 1,000 mcg tablet (Vitamin B-12) vit C 250 mg-vit E 90 mg-zinc 40 1 tab PO BID 02/21/23 04/22/23 History mg-copper 1 [id number] capsule (PreserVision AREDS-2) carvedilol 3.125 mg tablet 3.125 mg PO BIDM #60 tabs 02/26/23 04/22/23 Rx sacubitril 24 mg-valsartan 26 mg 1 tab PO BID #60 tabs 02/26/23 04/22/23 Rx tablet (Entresto) umeclidinium 62.5 mcg/actuation 1 inh inhalation QAM #30 ea 02/26/23 04/22/23 Rx blister powder for inhalation (Incruse Ellipta) potassium chloride 10 mEq 10 meq PO DAILY PRN Take with 03/07/23 04/22/23 Rx tablet,extended release furosemide #30 tabs furosemide 40 mg tablet 40 mg PO DAILY PRN weight gain #90 04/11/23 04/22/23 Rx tabs Allergies Allergy/AdvReac Type Severity Reaction Status Date / Time codeine AdvReac Mild NAUSEA/VOMI Verified 04/16/23 07:56 T morphine AdvReac Mild NAUSEA/VOMI Verified 04/16/23 07:56 T Past Med/Surg History Medical History Adenocarcinoma of lung Per chest CT 12/08/18: "No evidence for recurrent malignancy status post left upper lobectomy." Chronic systolic (congestive) heart failure per record, note from dr. lakhani>"The patient is an 82-year-old female admitted on February 22 with right-sided lower back pain. A CT scan noted a 9 by 5 right-sided ureteral stone with hydroureteronephrosis. She was able to pass the stone with conservative management. She did complain of shortness of breath while hospitalized and was noted to be hypoxic. A CT scan of the chest was performed to rule out a pulmonary embolism. Fortunately, no pulmonary embolism was identified, however, she was noted to be in pulmonary edema. An echocardiogram was performed which noted moderate to severe left ventricular dysfunction with ejection fraction of 25-30%. There was mild LVH and mild mitral regurgitation." pt started on Entresto and carvedilol, will be f/u w/dr. lakhani again "in the near future" per pt. Degenerative disc disease Dry eye syndrome Hx of renal calculi passed on own Hypertension Lumbar facet arthropathy Osteoarthritis Psoriasis Pulmonary nodule Surgical History Family history of reaction to anesthesia MOTHER, SISTER AND DAUGHTER NAUSEA Fusion of spine 4 LUMBAR FUSIONS (TOTAL 3-4 BACK SURGERIES) H/O cervical spine surgery GOOD ROM H/O foot surgery LEFT H/O wrist surgery RT History of arthroscopy RT KNEE History of bilateral tubal ligation History of cataract surgery RT/LEFT History of colonoscopy History of dilatation and curettage D&E 1971 History of herniorrhaphy History of lobectomy of lung UPPER LEFT LOBE History of open reduction and internal fixation (ORIF) procedure lt hip fx. History of shoulder surgery RT REVERSAL TSA; LT Reverse History of tooth extraction History of total left knee replacement Nausea and vomiting after administration of anesthetic agent Family History Other No significant family history Social History Smoking Status: Former smoker Tobacco Type: Cigarettes Cigarettes Per Day: 20; Second Hand Exposure: No; Do You Dip or Chew Tobacco: No; Tobacco Cessation Education Requested by Patient: No Hx Alcohol Use: No Hx Substance Use: Yes Preferred Language: Tajik Communication Ability: Effective Communication Tools: Other Orthodontist Assistant Required: No Beliefs That Will Affect Care: None marital status: / Current Living Situation: Alone Current Living Situation Comment: Lives alone at home current occupational status: retired Other Information That Helps Us Care for You: No Feels Safe at Home: Yes Safety Concerns: Feels Safe At This Time Dental Care, Regularly: No Physical Activity Frequency: 3-4 Times per Week Seatbelt Use: always Sunscreen Use: Yes Assistive Devices: None Review of Systems A total of 10 systems reviewed and were otherwise negative Physical Exam Vital Signs Vital Signs - 24 hr 04/22/23 15:24 04/22/23 15:30 04/22/23 16:00 Pulse Rate 93 H 80 67 Pulse Rate [Apical] Respiratory Rate 15 28 H Respiratory Effort / Characteristics Non-Labored Spontaneous Respiratory Depth Normal Blood Pressure 185/101 H 172/89 H Blood Pressure [Right Arm] Blood Pressure Mean 129 116 Blood Pressure Mean [Right Arm] Pulse Oximetry 97 94 Oxygen Delivery Method Room Air Sepsis Recent Fever Within 48 Hours No Sepsis New/Unexplained Change in Mental Status No Sepsis Action Taken by Nursing No Action Required 04/22/23 16:30 04/22/23 17:21 04/22/23 17:00 Pulse Rate 89 92 H Pulse Rate [Apical] 74 Respiratory Rate 18 20 18 Respiratory Effort / Characteristics Non-Labored Respiratory Depth Normal Blood Pressure 145/87 H 153/79 H Blood Pressure [Right Arm] 153/79 H Blood Pressure Mean 106 103 Blood Pressure Mean [Right Arm] 103 Pulse Oximetry 95 98 Oxygen Delivery Method Room Air Sepsis Recent Fever Within 48 Hours Sepsis New/Unexplained Change in Mental Status Sepsis Action Taken by Nursing 04/22/23 17:30 04/22/23 18:00 04/22/23 18:30 Pulse Rate 80 93 H 91 H Pulse Rate [Apical] Respiratory Rate 18 19 18 Respiratory Effort / Characteristics Respiratory Depth Blood Pressure 185/88 H 94/58 L 113/56 L Blood Pressure [Right Arm] Blood Pressure Mean 120 70 75 Blood Pressure Mean [Right Arm] Pulse Oximetry 96 95 Oxygen Delivery Method Sepsis Recent Fever Within 48 Hours Sepsis New/Unexplained Change in Mental Status Sepsis Action Taken by Nursing 04/22/23 19:00 Pulse Rate 72 Pulse Rate [Apical] Respiratory Rate 16 Respiratory Effort / Characteristics Respiratory Depth Blood Pressure 106/53 L Blood Pressure [Right Arm] Blood Pressure Mean 70 Blood Pressure Mean [Right Arm] Pulse Oximetry 94 Oxygen Delivery Method Sepsis Recent Fever Within 48 Hours Sepsis New/Unexplained Change in Mental Status Sepsis Action Taken by Nursing General: Well developed well nourished slender older female who appears in significant pain but in no acute respiratory distress, breathing comfortably on room air. Normal speech HEENT: Normal cephalic atraumatic. Pupils are equal round and reactive to light. Extraocular movements are intact. Oropharynx is pink with moist mucous membranes. No swelling of the mouth lips or tongue. Neck: Supple with a midline trachea. No meningeal signs or stiffness, no JVD or bruits. No Stridor. Chest: Clear to auscultation bilaterally. No wheezes or rhonchi. No increased work of breathing. Heart: Regular rate and rhythm without murmurs or gallops. Abdomen: Soft nontender, nondistended without rebound guarding or rigidity. Extremities: No cyanosis clubbing or edema. No calf tenderness or assymetry Spine/Back. Non tender to palpation. No CVA tenderness Skin: Good turgor without rashes. Neurologic exam: Cranial nerves two through 12 are intact. Motor and sensation are intact and symmetrical throughout. Course Administered Medications Discontinued Medications Sodium Chloride (Nss) 500 mls @ 999 mls/hr IV .Q31M STA Stop: 04/22/23 15:58 Last Infusion: 04/22/23 17:04 Dose: 0 mls/hr Documented By: Admin: 04/22/23 15:45 Dose: 999 mls/hr Documented By: KELL Sodium Chloride (Nss) 1,000 mls @ 999 mls/hr IV .Q1H1M ONE Stop: 04/22/23 16:39 Last Infusion: 04/22/23 18:22 Dose: 0 mls/hr Documented By: Admin: 04/22/23 16:47 Dose: 999 mls/hr Documented By: JONATAN Ketorolac Tromethamine (Ketorolac Tromethamine 15 Mg/Ml Vial) 10 mg IV NOW ONE Stop: 04/22/23 16:25 Last Admin: 04/22/23 16:47 Dose: 10 mg Documented By: JONATAN Morphine Sulfate (Morphine Sulfate 2 Mg/Ml Carp) 2 mg IV NOW STA Stop: 04/22/23 15:40 Last Admin: 04/22/23 15:44 Dose: 2 mg Documented By: KELL Morphine Sulfate (Morphine Sulfate 2 Mg/Ml Carp) 2 mg IV NOW STA Stop: 04/22/23 16:06 Last Admin: 04/22/23 16:13 Dose: 2 mg Documented By: JONATAN Morphine Sulfate (Morphine Sulfate 2 Mg/Ml Carp) 2 mg IV NOW STA Stop: 04/22/23 16:25 Last Admin: 04/22/23 16:47 Dose: 2 mg Documented By: JONATAN Ondansetron HCl (Ondansetron Inj 2 Mg/Ml 2 Ml Vial) 4 mg IV NOW STA Stop: 04/22/23 15:29 Last Admin: 04/22/23 15:45 Dose: 4 mg Documented By: KELL Medical Decision Making Differential Diagnosis Kidney stone, renal colic, UTI, aneurysm, intra-abdominal process, infection, lumbar disc disease, fracture Medical Records Attestation: I reviewed the patient's medical records. Home Medications Current Medication List: was personally reviewed by fl Laboratory Data Attestation: I reviewed the patient's lab results. 04/22/23 16:15 04/22/23 16:15 Lab Results 04/22/23 04/22/23 04/22/23 Range/Units 16:15 16:15 16:36 WBC 13.82 H (4.8-10.8) K/ul RBC 4.77 (4.20-5.40) M/uL Hgb 13.8 (12.0-16.0) g/dl Hct 41.2 (37.0-47.0) % MCV 86.4 (80.0-100.0) fL MCH 28.9 (25.0-34.0) pg MCHC 33.5 (32.0-36.0) g/dL RDW Std Deviation 42.1 (36.4-46.3) fL RDW Coeff of [place] 13.4 (11.5-14.5) % Plt Count 282 (130-400) K/uL MPV 9.5 (9.4-12.4) fL Immature Gran % (Auto) 0.4 % Neut % (Auto) 75.5 % Lymph % (Auto) 14.5 % [place] % (Auto) 7.4 % Eos % (Auto) 1.2 % Baso % (Auto) 1.0 % Neut # (Auto) 10.44 H (1.40-6.50) K/uL Lymph # (Auto) 2.01 (1.20-3.40) K/uL [place] # (Auto) 1.02 H (0.11-0.59) K/uL Eos # (Auto) 0.16 (0.00-0.50) K/uL Baso # (Auto) 0.14 (0.00-0.20) K/uL Immature Gran # (Auto) 0.05 (0.01-0.20) K/uL Sodium 139 (136-145) mmol/L Potassium 3.6 (3.5-5.1) mmol/L Chloride 105 (98-107) mmol/L Carbon Dioxide 24 (21-32) mmol/L Anion Gap 10 (3-11) BUN 22 (6-23) mg/dl Creatinine 0.75 (0.6-1.2) mg/dl Est Cr Clr Drug Dosing 45.0 ml/min Est GFR ( Amer) 85.4 ml/min Est GFR (Non-Af Amer) 73.7 ml/min BUN/Creatinine Ratio 29.3 H (10-20) Glucose 128 H (70-99(Fasting)) mg/dl Calcium 10.1 (8.6-10.3) mg/dl Total Bilirubin 0.8 (0.2-1.0) mg/dl AST 16 (13-39) U/L ALT 9 (7-52) U/L Alkaline Phosphatase 50 (34-104) U/L Total Protein 7.4 (6.0-8.3) gm/dl Albumin 4.5 (3.4-5.0) gm/dl Globulin 2.9 (2.5-4.0) gm/dl Albumin/Globulin Ratio 1.6 (0.9-2) Urine Color Yellow Urine Appearance Clear (Clear) Urine pH 6.5 (4.5-7.5) Ur Specific [place] 1.012 (1.000-1.030) Urine Protein Trace H (Negative) Urine Glucose (UA) Negative (Negative) Urine Ketones 2+ H (Negative) Urine Blood 1+ H (Negative) Urine Nitrite Negative (Negative) Urine Bilirubin Negative (Negative) Urine Urobilinogen Negative (Negative) Ur Leukocyte Esterase Negative (Negative) Urine WBC (Auto) 1-5 (0-5) /hpf Urine RBC (Auto) 10-30 H (0-4) /hpf U Hyaline Cast (Auto) 1-5 (0-5) /lpf U Epithel Cells (Auto) 5-10 H (0-5) /lpf Urine Bacteria (Auto) Negative (Negative) Imaging Data Attestation: I personally reviewed and interpreted this imaging study as follows: My Impression: CT stone study -there is hydronephrosis on the right Radiologist's Impression: Abdomen/Pelvis CT 04/22/23 16:[address] WITHOUT CONTRAST CT DOSE: 500.97 mGy.cm HISTORY: Acute right-sided flank pain right flank pain TECHNIQUE: Multiaxial CT images of the abdomen and pelvis were performed without contrast. A dose lowering technique was utilized adhering to the principles of ALARA. COMPARISON STUDY: 02/22/2023 FINDINGS: Coronary artery calcifications. Mild mucoid impaction within the right lower lobe with mild linear atelectasis versus scarring within the right lung base. There is chronic left hemidiaphragmatic elevation. No free air. The unenhanced spleen, visualized pancreas and adrenal glands are unremarkable. Limited study without the use of IV contrast and also secondary to streak artifact from the metallic hardware within the hips and lumbar spine. Unremarkable liver. Previously noted cholelithiasis is not definitively seen. Complex and simple cysts of the kidneys are again noted with complex cyst m easuring up to 1.3 cm on the right there is moderate right-sided hydroureteronephrosis. There is a 7 x 6 x 9 mm calculus within the right ureter at the level of L5-S1. Reactive perinephric and periureteral inflammatory stranding. Pelvic structures are not well visualized secondary to the aforementioned streak artifact. Atherosclerosis of the aorta. No lymphadenopathy identified. No bowel obstruction or bowel wall thickening identified. No acute fracture. Healed chronic pelvic ring fracture deformities. Chronic L1 compression deformity. Unchanged appearance of the lumbar spinal fusion hardware. IMPRESSION: 1. Moderate right-sided hydroureteronephrosis secondary to an obstructing 9 mm ureteral calculus at the level of L5-S1. 2. No bowel obstruction or bowel wall thickening. 3. Additional findings as above. ACT 112: Negative or not required by law. The above report was generated using voice recognition software. It may contain grammatical, syntax or spelling errors. Electronically signed by: Gregg Paredes M.D. 04/22/2023 6:42 PM MDM Narrative This patient comes in as described above. She was placed in room B12. She was having significant pain and the nurse came and got me to see her I saw her promptly the nurse was already started an IV. I reviewed her old records and ordered morphine 2 mg IV and Zofran 4 mg IV she had this before she did require additional dosages of IV morphine and I also gave her Toradol 10 mg IV and 1 with this she felt significantly better and was resting comfortably. Her urinalysis does not suggest a definite UTI she does have some red cells. White count is mildly elevated however clinically she does not appear to have infection or sepsis. She is not tender to palpation and has no fever. CAT scan shows a 9 mm stone with moderate hydronephrosis. I do think she needs to be admitted for pain management. I have consulted the [facility] hospitalist to see her in the ER. I also discussed the case with the on-call urologist Dr. Oconnell. Urology will also follow her in the hospital. The patient and her mother were happy with the plan and she will be admitted for these measures. Impression & Plan Renal colic on right side, Kidney stone, Hydronephrosis, Back pain Discharge Plan Visit Data Chief Complaint: Illness Stated Complaint: DRYY HEVES, BACK PAIN ED Provider: Michel Godoy Discharge Problem: Renal colic on right side, Kidney stone, Hydronephrosis, Back pain Patient Disposition: Admitted As Inpatient Discharge Instructions Interventions: ED Discharge Assessment Last Done: 04/22/23 19:38
[2023-04-23] MEDS: MoRPHine SULFATE 2 MG/ML CARP IV PRN ×2 (03:10→08:38)
[2023-04-23 06:54] LABS: Basophils # (auto) 0.11 K/uL (0.00-0.20); Basophils % (auto) 1.2 %; Eosinophils # (auto) 0.15 K/uL (0.00-0.50); Eosinophils % (auto) 1.6 %; Hematocrit (blood only) 30.4 % (37.0-47.0); Hemoglobin 10.4 g/dl (12.0-16.0); Immature Granulocytes # (auto) 0.04 K/uL (0.01-0.20); Immature Granulocytes % (auto) 0.4 %; Lymphocytes # (auto) 2.05 K/uL (1.20-3.40); Lymphocytes % (auto) 21.6 %; Mean Corpuscular Hemoglobin 29.5 pg (25.0-34.0); Mean Corpuscular Hgb Conc 34.2 g/dL (32.0-36.0); Mean Corpuscular Volume 86.4 fL (80.0-100.0); Mean Platelet Volume 9.6 fL (9.4-12.4); Monocytes # (auto) 0.89 K/uL (0.11-0.59); Monocytes % (auto) 9.4 %; Neutrophils # (auto) 6.26 K/uL (1.40-6.50); Neutrophils % (auto) 65.8 %; Platelet Count 209 K/uL (130-400); RDW Coefficient of Variation 13.9 % (11.5-14.5); RDW Standard Deviation 43.6 fL (36.4-46.3); Red Blood Count 3.52 M/uL (4.20-5.40)
[2023-04-23 07:03] LABS: Prothrombin Time 11.1 Seconds (9.0-12.0)
[2023-04-23 07:06] LABS: BUN Creatinine Ratio 28.2 (10-20); Calcium 8.1 mg/dl (8.6-10.3); Est GFR (African American) 81.5 ml/min; Est GFR (Non-African American) 70.3 ml/min; Magnesium 1.9 mg/dl (1.7-2.4); Potassium 3.5 mmol/L (3.5-5.1)
--- NOTE | 2023-04-23 08:32 | Hospitalist Progress Note ---
Date of Service April 23, 2023 Assessment & Plan (1) Hydroureteronephrosis: Plan: right back/flank pain -CT of the abd/pelvis wo con shows Moderate right-sided hydroureteronephrosis secondary to an obstructing 9 mm ureteral calculus at the level of L5-S1 -Urology has been consulted and performed laser lithotripsy and stent on 04/23/2023 -Pain control with prn Tylenol and Morphine; prn Narcan on board for oversedation (2) COPD (chronic obstructive pulmonary disease): Plan: -Stable on RA -Continue Incruse Ellipta -Incentive spirometry (3) HFrEF (heart failure with reduced ejection fraction): Plan: -Currently euvolemic , EF 25-30% -Hold additional IV fluids for now to avoid volume overload -Continue entresto /coreg Admission and Anticipated Discharge Date Admission Date: April 22, 2023 Subjective patient was seen pre and postoperatively. Postoperatively she was doing much better. She had a right ureteral stent with laser lithotripsy performed. She is recovering pain control is adequate Physical Exam Physical Exam: awake alert appropriate. Card exam is regular lungs are clear abdomen NABS and soft Results & Data Results & Data Vital Signs (Past 12 Hours) Vital Signs Pulse BP 04/22/23 22:05 67 116/55 L Laboratory Results reviewed CBC reviewed chemistry PG Care Time/CCT Total # of Minutes Spent Total Time Spent with Patient: Total time spent is greater than 50% in coordination of care (as documented) at patient's floor/unit and/or counseling patient: Coding Level of Care Code 32677 SUB INP/OBS CARE 2/35MIN Diagnoses Hydroureteronephrosis N13.30 COPD (chronic obstructive pulmonary disease) J44.9 HFrEF (heart failure with reduced ejection fraction) I50.20
[2023-04-23] MEDS: UMECLIDINIUM BROMIDE 62.5MCG/BLISTER 7 PUFFS/INHALER INH SCH (08:38)
--- NOTE | 2023-04-23 08:54 | Urology Consultation ---
Date of Consultation April 23, 2023 Assessment & Plan (1) Kidney stone: (2) Hydronephrosis: Plan Obstructing right ureteral calculus without evidence of infection/sepsis Discussed different options I think at this stage would be best intervene I would like to treat the stone today if possible via ureteroscopy and laser lithotripsy Risks, benefits, expectations reviewed She will require postoperative stent which can be removed in our office I hope that this will confer some benefit in terms of back pain History of Present Illness Attending Physician: Eron Stack MD History of Present Illness 82-year-old female who was in the hospital around 2 months ago with a multitude of symptoms including a possible kidney stone At that time there was some suspicion that she may have passed her stone as she had a contrast-enhanced CT which showed no significant hydronephrosis nor obstructing elements She did have a small renal stone at that time She returns now with significant right back and flank pain She has a stone in the mid ureter that seems to be causing obstruction as she has developed new and relatively significant hydronephrosis She does not currently have any leukocytosis and her creatinine levels are appropriate She is comfortable despite the discomfort I offered her options of observation versus treatment and she would very much like to pursue treatment Allergies Allergy/AdvReac Type Severity Reaction Status Date / Time codeine AdvReac Mild NAUSEA/VOMI Verified 04/16/23 07:56 T morphine AdvReac Mild NAUSEA/VOMI Verified 04/16/23 07:56 T Home Medications Medication Instructions Recorded Confirmed Type peg 400-propylene glycol (PF) 0.4 1 drp ophthalmic (eye) BID PRN Dry 05/21/19 04/22/23 History %-0.3 % eye drops in a dropperette Eyes (Systane (PF)) acetaminophen 500 mg tablet 500 mg PO Q6H PRN Fever Or Pain 02/21/23 04/22/23 History calcium citrate 315 mg 1 tab PO QAM 02/21/23 04/22/23 History calcium-vitamin D3 6.25 mcg (250 unit) tablet (Citracal + Vitamin D Maximum) cyanocobalamin (vitamin B-12) 1,000 mcg PO QAM 02/21/23 04/22/23 History 1,000 mcg tablet (Vitamin B-12) vit C 250 mg-vit E 90 mg-zinc 40 1 tab PO BID 02/21/23 04/22/23 History mg-copper 1 [id number] capsule (PreserVision AREDS-2) carvedilol 3.125 mg tablet 3.125 mg PO BIDM #60 tabs 02/26/23 04/22/23 Rx sacubitril 24 mg-valsartan 26 mg 1 tab PO BID #60 tabs 02/26/23 04/22/23 Rx tablet (Entresto) umeclidinium 62.5 mcg/actuation 1 inh inhalation QAM #30 ea 02/26/23 04/22/23 Rx blister powder for inhalation (Incruse Ellipta) potassium chloride 10 mEq 10 meq PO DAILY PRN Take with 03/07/23 04/22/23 Rx tablet,extended release furosemide #30 tabs furosemide 40 mg tablet 40 mg PO DAILY PRN weight gain #90 04/11/23 04/22/23 Rx tabs Patient History Medical History Adenocarcinoma of lung Per chest CT 12/08/18: "No evidence for recurrent malignancy status post left upper lobectomy." Chronic systolic (congestive) heart failure per record, note from dr. lakhani>"The patient is an 82-year-old female admitted on February 22 with right-sided lower back pain. A CT scan noted a 9 by 5 right-sided ureteral stone with hydroureteronephrosis. She was able to pass the stone with conservative management. She did complain of shortness of breath while hospitalized and was noted to be hypoxic. A CT scan of the chest was performed to rule out a pulmonary embolism. Fortunately, no pulmonary embolism was identified, however, she was noted to be in pulmonary edema. An echocardiogram was performed which noted moderate to severe left ventricular dysfunction with ejection fraction of 25-30%. There was mild LVH and mild mitral regurgitation." pt started on Entresto and carvedilol, will be f/u w/dr. lakhani again "in the near future" per pt. Degenerative disc disease Dry eye syndrome Hx of renal calculi passed on own Hypertension Lumbar facet arthropathy Osteoarthritis Psoriasis Pulmonary nodule Surgical History Family history of reaction to anesthesia MOTHER, SISTER AND DAUGHTER NAUSEA Fusion of spine 4 LUMBAR FUSIONS (TOTAL 3-4 BACK SURGERIES) H/O cervical spine surgery GOOD ROM H/O foot surgery LEFT H/O wrist surgery RT History of arthroscopy RT KNEE History of bilateral tubal ligation History of cataract surgery RT/LEFT History of colonoscopy History of dilatation and curettage D&E 1971 History of herniorrhaphy History of lobectomy of lung UPPER LEFT LOBE History of open reduction and internal fixation (ORIF) procedure lt hip fx. History of shoulder surgery RT REVERSAL TSA; LT Reverse History of tooth extraction History of total left knee replacement Nausea and vomiting after administration of anesthetic agent Family History Other No significant family history Social History Smoking Status: Former smoker Tobacco Type: Cigarettes Cigarettes Per Day: 20; Second Hand Exposure: No; Do You Dip or Chew Tobacco: No; Tobacco Cessation Education Requested by Patient: No Hx Alcohol Use: No Hx Substance Use: Yes Preferred Language: [place] Citizen Communication Ability: Effective Communication Tools: Other Litigation Associate Required: No Beliefs That Will Affect Care: None marital status: / Current Living Situation: Alone Current Living Situation Comment: Lives alone at home current occupational status: retired Other Information That Helps Us Care for You: No Feels Safe at Home: Yes Safety Concerns: Feels Safe At This Time Dental Care, Regularly: No Physical Activity Frequency: 3-4 Times per Week Seatbelt Use: always Sunscreen Use: Yes Assistive Devices: None Physical Exam Constitutional: well developed and well nourished Neck: neck nontender Respiratory: normal respiratory effort; no respiratory distress and does not use accessory muscles Cardiovascular: Rate/Rhythm: regular rate Vessels: radial pulses present Extremities: no edema Gastrointestinal (Abdomen): Inspection/Auscultation: abdomen normal to inspection Percussion/Palpation: abdomen soft; abdomen nontender and no guarding Musculoskeletal: Head/Neck/Chest: normocephalic and head atraumatic Extremities: extremities normal to inspection Skin: no rashes and no lesions Trauma: no evidence of skin trauma Neurologic: awake; not obtunded Speech / Cognition: normal speech Motor/Sensory: no tremor Psychiatric: Orientation: alert and oriented x 3 Lymphatic: no lymphadenopathy Results & Data Vital Signs (Past 12 Hours) Vital Signs Temp Pulse Resp BP Pulse Ox O2 Del Method 04/23/23 08:45 36.8 C 70 16 117/62 93 Room Air 04/22/23 22:05 67 116/55 L PG Care Time/CCT Total # of Minutes Spent Total Time Spent with Patient: Total time spent is greater than 50% in coordination of care (as documented) at patient's floor/unit and/or counseling patient: Coding Level of Care Code 48644 IN/OBS CONSULT LVL 3,45M Diagnoses Kidney stone N20.0 Hydronephrosis N13.30 Hydronephrosis type: unspecified (2) Hydronephrosis Hydronephrosis type: unspecified Qualified Code(s): N13.30 - Unspecified hydronephrosis
[2023-04-23] MEDS ORDERED: fentaNYL citrate PF 100 MCG/2 ML VIAL ONE (10:53)
[2023-04-23] MEDS ORDERED: HYDROmorphone INJ 0.5 MG/0.5 ML SYR IV PRN ×2 (11:16)
[2023-04-23] MEDS ORDERED: HYDROmorphone INJ 0.5 MG/0.5 ML SYR IV STA (11:16)
--- NOTE | 2023-04-23 11:45 | Anesthesiology Consultation ---
Date of Service April 23, 2023 Assessment & Plan (1) Encounter for pre-operative examination: Chart Review Chart Review: Acceptable Risk for Surgery History Surgery Operation Date: 04/23/23 13:55 Proposed Procedures p Cystoscopy, Right Ureteroscopy, Right Laser Lithotripsy, Right Stent Placement - Deyvi Mcintyre MD Height/Weight Height: 5 ft 2 in Weight: 48.7 kg Allergies Allergy/AdvReac Type Severity Reaction Status Date / Time codeine AdvReac Mild NAUSEA/VOMI Verified 04/16/23 07:56 T morphine AdvReac Mild NAUSEA/VOMI Verified 04/16/23 07:56 T Medications Home Medications Medication Instructions Recorded Confirmed Last Taken peg 400-propylene glycol (PF) 0.4 1 drp ophthalmic (eye) BID PRN Dry 05/21/19 04/22/23 06/09/19 %-0.3 % eye drops in a dropperette Eyes (Systane (PF)) acetaminophen 500 mg tablet 500 mg PO Q6H PRN Fever Or Pain 02/21/23 04/22/23 Unknown calcium citrate 315 mg 1 tab PO QAM 02/21/23 04/22/23 04/22/23 calcium-vitamin D3 6.25 mcg (250 unit) tablet (Citracal + Vitamin D Maximum) cyanocobalamin (vitamin B-12) 1,000 mcg PO QAM 02/21/23 04/22/23 04/22/23 1,000 mcg tablet (Vitamin B-12) vit C 250 mg-vit E 90 mg-zinc 40 1 tab PO BID 02/21/23 04/22/23 04/22/23 mg-copper 1 [id number] AM capsule (PreserVision AREDS-2) carvedilol 3.125 mg tablet 3.125 mg PO BIDM #60 tabs 02/26/23 04/22/23 04/22/23 AM sacubitril 24 mg-valsartan 26 mg 1 tab PO BID #60 tabs 02/26/23 04/22/23 04/22/23 tablet (Entresto) AM umeclidinium 62.5 mcg/actuation 1 inh inhalation QAM #30 ea 02/26/23 04/22/23 04/22/23 blister powder for inhalation (Incruse Ellipta) potassium chloride 10 mEq 10 meq PO DAILY PRN Take with 03/07/23 04/22/23 Unknown tablet,extended release furosemide #30 tabs furosemide 40 mg tablet 40 mg PO DAILY PRN weight gain #90 04/11/23 04/22/23 Unknown tabs Active Medications Generic Name Dose Route Start Last Admin Trade Name Freq PRN Reason Stop Dose Admin Umeclidinium Furlong 1 puffs 04/23/23 09:00 04/23/23 08:38 Umeclidinium [place] 62.5mcg/Blister 7 Puffs/Inhaler INH 05/23/23 08:59 1 puffs QAM SHADY Administration Past Medical History Medical History (Updated 04/23/23 @ 11:42 by Zeus Burgess MD) Adenocarcinoma of lung Per chest CT 12/08/18: "No evidence for recurrent malignancy status post left upper lobectomy." Chronic systolic (congestive) heart failure per record, note from dr. lakhani>"The patient is an 82-year-old female admitted on February 22 with right-sided lower back pain. A CT scan noted a 9 by 5 right-sided ureteral stone with hydroureteronephrosis. She was able to pass the stone with conservative management. She did complain of shortness of breath while hospitalized and was noted to be hypoxic. A CT scan of the chest was performed to rule out a pulmonary embolism. Fortunately, no pulmonary embolism was identified, however, she was noted to be in pulmonary edema. An echocardiogram was performed which noted moderate to severe left ventricular dysfunction with ejection fraction of 25-30%. There was mild LVH and mild mitral regurgitation." pt started on Entresto and carvedilol, will be f/u w/dr. lakhani again "in the near future" per pt. Degenerative disc disease Dry eye syndrome Hx of renal calculi passed on own Hypertension Lumbar facet arthropathy Osteoarthritis Psoriasis Pulmonary hypertension Pulmonary nodule Past Family History Family History Other No significant family history Past Surgical History Surgical History Family history of reaction to anesthesia MOTHER, SISTER AND DAUGHTER NAUSEA Fusion of spine 4 LUMBAR FUSIONS (TOTAL 3-4 BACK SURGERIES) H/O cervical spine surgery GOOD ROM H/O foot surgery LEFT H/O wrist surgery RT History of arthroscopy RT KNEE History of bilateral tubal ligation History of cataract surgery RT/LEFT History of colonoscopy History of dilatation and curettage D&E 1971 History of herniorrhaphy History of lobectomy of lung UPPER LEFT LOBE History of open reduction and internal fixation (ORIF) procedure lt hip fx. History of shoulder surgery RT REVERSAL TSA; LT Reverse History of tooth extraction History of total left knee replacement Nausea and vomiting after administration of anesthetic agent Social History Smoking Status: Former smoker tobacco type: cigarettes Smoking cigarettes per day: 20 Do You Dip or Chew Tobacco: No Hx Alcohol Use: No Hx Substance Use: Yes substance use type: prescription drug Physical Exam Vital Signs Last Vital Signs Temp 36.8 C 04/23/23 08:45 Pulse 70 04/23/23 08:45 Resp 16 04/23/23 08:45 BP 117/62 04/23/23 08:45 Pulse Ox 93 04/23/23 08:45 O2 Del Method Room Air 04/23/23 08:45 Testing Laboratory Results 04/23/23 05:57 04/23/23 05:57 PT 11.1 Seconds (9.0-12.0) 04/23/23 05:57 INR 1.0 (0.9-1.1) 04/23/23 05:57 Urine Color Yellow 04/22/23 16:36 Urine Appearance Clear (Clear) 04/22/23 16:36 Urine pH 6.5 (4.5-7.5) 04/22/23 16:36 Ur Specific [place] 1.012 (1.000-1.030) 04/22/23 16:36 Urine Protein Trace (Negative) H 04/22/23 16:36 Urine Glucose (UA) Negative (Negative) 04/22/23 16:36 Urine Ketones 2+ (Negative) H 04/22/23 16:36 Urine Nitrite Negative (Negative) 04/22/23 16:36 Ur Leukocyte Esterase Negative (Negative) 04/22/23 16:36 Urine WBC (Auto) 1-5 /hpf (0-5) 04/22/23 16:36 Urine RBC (Auto) 10-30 /hpf (0-4) H 04/22/23 16:36 U Hyaline Cast (Auto) 1-5 /lpf (0-5) 04/22/23 16:36 U Epithel Cells (Auto) 5-10 /lpf (0-5) H 04/22/23 16:36 Urine Bacteria (Auto) Negative (Negative) 04/22/23 16:36 Electrocardiogram Date: 02/23/23 Findings: + NSST changes and + ST @ (122) Echocardiogram Date: 02/23/23 EF: 25-30% RWMA: + hypokinetic (globally) Valvular Disease: + MR (mild) severe pulmonary hypertension normal RV function
[2023-04-23] MEDS ORDERED: ONDANSETRON INJ 2 MG/ML 2 ML VIAL ONE (11:49)
[2023-04-23] MEDS ORDERED: LIDOCAINE 2% 2 ML VIAL/AMP(20MG/ML) INFIL ONE (11:49)
[2023-04-23] MEDS ORDERED: DEXAMETHASONE SOD INJ 4 MG/ML VIAL ONE (11:49)
[2023-04-23] MEDS ORDERED: PROPOFOL IV EMULSION 10 MG/ML 20 ML VIAL IV ONE (11:49)
[2023-04-23] MEDS ORDERED: KETOROLAC 30 MG/ML VIAL ONE (11:49)
[2023-04-23] MEDS ORDERED: ETOMIDATE 2 MG/ML 20 ML VIAL IV ONE (11:53)
[2023-04-23] MEDS ORDERED: VASOPRESSIN 20 UNIT/ML VIAL ONE (11:56)
[2023-04-23] MEDS ORDERED: CIPROFLOXACIN 400MG / 200ML D5W IV ONE (12:23)
[2023-04-23] MEDS ORDERED: ATROPINE SULFATE 0.1 MG/ML 10ML SYR IV PRN (12:27)
[2023-04-23] MEDS ORDERED: PROMETHAZINE HCL 6.25 MG in SODIUM CHLORIDE 0.9% 50 ML IV PRN (12:27)
[2023-04-23] MEDS ORDERED: fentaNYL citrate PF 100 MCG/2 ML VIAL IV PRN (12:27)
[2023-04-23] MEDS ORDERED: LACTATED RINGER'S 1,000 ML IV SCH (12:30)
--- NOTE | 2023-04-23 14:32 | Fluoroscopy Report ---
FL [facility] CLINICAL HISTORY: CYSTO RIGHT SIDEright-sided cystourethrogram COMPARISON STUDY: CT 04/22/2023 FLUOROSCOPY TIME: 7 seconds FLUOROSCOPY IMAGES: 2 EXPOSURE DOSE: 0.85 mGy FINDINGS: A right-sided ureteral stent has been placed, the proximal portion in satisfactory position ing. The distal portion was not imaged. Lumbar spinal fusion hardware. IMPRESSION: Fluoroscopic assistance as above. ACT 112: Negative or not required by law. Electronically signed by: Gregg Paredes M.D. 04/23/2023 2:29 PM
[2023-04-23] MEDS: carvediloL 3.125 MG TAB PO SCH ×2 (16:10→18:12)
[2023-04-23] MEDS: VALSARTAN/SACUBITRIL 26/24MG TAB PO SCH ×2 (16:10→22:14)
[2023-04-23] MEDS: TAMSULOSIN HCL 0.4 MG CAP PO SCH (18:12)
[2023-04-24] MEDS ORDERED: CIPROFLOXACIN / D5W 400 MG/200 ML BAG IV SCH (06:00)
--- NOTE | 2023-04-24 07:40 | Anesthesiology Progress Note ---
Date of Service April 24, 2023 Anesthesia Post Procedure Vital Signs Vital Signs: Temp Pulse Pulse Resp BP BP Pulse Ox 04/24/23 07:07 36.7 C 68 18 147/68 H 97 04/24/23 03:22 37.1 C 71 18 110/57 L 96 04/23/23 20:00 04/23/23 22:29 36.6 C 67 18 123/62 95 04/23/23 19:52 36.8 C 68 18 106/54 L 93 04/23/23 17:59 36.6 C 82 16 123/57 L 94 04/23/23 15:00 04/23/23 15:38 36.6 C 67 16 133/66 94 04/23/23 15:17 36.5 C 58 L 16 119/55 L 94 04/23/23 14:47 36.6 C 63 16 129/59 L 93 04/23/23 14:30 64 18 122/60 94 04/23/23 14:15 62 16 126/49 L 93 04/23/23 14:05 65 14 133/57 L 93 04/23/23 13:50 36.7 C 66 12 127/54 L 93 04/23/23 13:40 62 14 112/49 L 99 04/23/23 13:30 54 L 12 96/46 L 99 04/23/23 13:22 36.9 C 58 L 16 93/43 L 98 04/23/23 12:11 37.6 C H 75 18 106/67 95 04/23/23 08:45 36.8 C 70 16 117/62 93 O2 Del Method O2 Flow Rate 04/24/23 07:07 Room Air 04/24/23 03:22 Room Air 04/23/23 20:00 Room Air 04/23/23 22:29 Room Air 04/23/23 19:52 Room Air 04/23/23 17:59 Room Air 04/23/23 15:00 Room Air 04/23/23 15:38 Room Air 04/23/23 15:17 Room Air 04/23/23 14:47 Room Air 04/23/23 14:30 Room Air 04/23/23 14:15 Room Air 04/23/23 14:05 Room Air 04/23/23 13:50 Room Air 04/23/23 13:40 Oxymask 4 04/23/23 13:30 Oxymask 8 04/23/23 13:22 Oxymask 13 04/23/23 12:11 Room Air 04/23/23 08:45 Room Air Transfer of Care Handoff Completed per policy Notes Mental Status: alert / awake / arousable Patient Amnestic to Procedure: Yes Nausea / Vomiting: adequately controlled Pain: adequately controlled Airway Patency, RR, SpO2: stable & adequate BP & HR: stable & adequate Hydration State: stable & adequate Anesthetic Complications: no major complications apparent
[2023-04-24 07:41] LABS: Basophils # (auto) 0.05 K/uL (0.00-0.20); Basophils % (auto) 0.4 %; Eosinophils # (auto) 0.01 K/uL (0.00-0.50); Eosinophils % (auto) 0.1 %; Hematocrit (blood only) 32.7 % (37.0-47.0); Hemoglobin 11.1 g/dl (12.0-16.0); Immature Granulocytes # (auto) 0.04 K/uL (0.01-0.20); Immature Granulocytes % (auto) 0.3 %; Lymphocytes # (auto) 1.38 K/uL (1.20-3.40); Mean Corpuscular Hemoglobin 29.5 pg (25.0-34.0); Mean Corpuscular Hgb Conc 33.9 g/dL (32.0-36.0); Mean Platelet Volume 9.4 fL (9.4-12.4); Monocytes # (auto) 1.05 K/uL (0.11-0.59); Monocytes % (auto) 8.4 %; Neutrophils % (auto) 79.8 %; Platelet Count 224 K/uL (130-400); RDW Coefficient of Variation 13.5 % (11.5-14.5); RDW Standard Deviation 42.5 fL (36.4-46.3); Red Blood Count 3.76 M/uL (4.20-5.40); White Blood Count 12.53 K/ul (4.8-10.8)
--- NOTE | 2023-04-24 07:48 | Urology Progress Note ---
Date of Service April 24, 2023 Assessment & Plan (1) Kidney stone: (2) Hydronephrosis: Plan POD #1 s/p cystoscopy, right ureteroscopy, stone treatment, stent placement with Dr. Mcintyre. - Feeling well following her procedure yesterday. Tolerating the ureteral stent with minimal bother. - Afebrile and hemodynamically stable. - Labs reviewed - WBC 12.53, hemoglobin 11.1, Creatinine 0.80. - UA on admission without signs of infection. - Ok for discharge from perspective. - Will arrange outpatient follow-up for stent removal. - Expected clinical course reviewed, all questions were answered. - Urology will sign off. Please contact us any further questions/concerns Admission and Anticipated Discharge Date Admission Date: April 22, 2023 Subjective Pt examined at bedside this AM. Awake, sitting up in bed on arrival. No acute distress. Tolerating the stent with minimal bother. Reports an improvement in back/flank pain. Voiding spontaneously without issue. Notes mild hematuria and dysuria, but seems to be improving this morning. Denies fevers, chills, nausea, vomiting. Review of Systems Constitutional: as per Subjective / HPI Gastrointestinal: as per Subjective / HPI Genitourinary: as per Subjective / HPI Physical Exam Constitutional: no acute distress Respiratory: no respiratory distress and no labored breathing Neurologic: moves all extremities and awake Psychiatric: A+Ox3, euthymic affect Results & Data Vital Signs (Past 12 Hours) Vital Signs Temp Pulse Resp BP Pulse Ox O2 Del Method 04/24/23 07:07 36.7 C 68 18 147/68 H 97 Room Air 04/24/23 03:22 37.1 C 71 18 110/57 L 96 Room Air 04/23/23 20:00 Room Air 04/23/23 22:29 36.6 C 67 18 123/62 95 Room Air 04/23/23 19:52 36.8 C 68 18 106/54 L 93 Room Air PG Care Time/CCT Total # of Minutes Spent Total Time Spent with Patient: Total time spent is greater than 50% in coordination of care (as documented) at patient's floor/unit and/or counseling patient: Coding Level of Care Code 31318 SUB INP/OBS CARE 2/35MIN Diagnoses Kidney stone N20.0 Hydronephrosis N13.30 Hydronephrosis type: unspecified (2) Hydronephrosis Hydronephrosis type: unspecified Qualified Code(s): N13.30 - Unspecified hydronephrosis
[2023-04-24 07:50] LABS: Calcium 8.3 mg/dl (8.6-10.3); Est GFR (Non-African American) 68.2 ml/min; Magnesium 2.1 mg/dl (1.7-2.4)
[2023-04-24] MEDS: carvediloL 3.125 MG TAB PO SCH (07:57)
[2023-04-24] MEDS: TAMSULOSIN HCL 0.4 MG CAP PO SCH (07:57)
[2023-04-24] MEDS: VALSARTAN/SACUBITRIL 26/24MG TAB PO SCH (07:57)
[2023-04-24] MEDS: UMECLIDINIUM BROMIDE 62.5MCG/BLISTER 7 PUFFS/INHALER INH SCH (07:58)
[2023-04-24 08:23] LABS: Prothrombin Time 10.8 Seconds (9.0-12.0)
--- NOTE | 2023-04-24 08:52 | Operative Report ---
PG Post Operative Report Pre & Post Diagnosis Operation Date: 04/23/23 13:55 Pre-Op Diagnosis: RIGHT-SIDED HYDROURETERONEPHROSIS, 9MM URETERAL stone Post-Op Diagnosis: RIGHT-SIDED HYDROURETERONEPHROSIS, 9MM URETERAL stone I identified the patient and participated in the time-out.: Yes Procedure Operation Date: 04/23/23 13:55 Actual Procedures p Cystoscopy, Right Ureteroscopy, Right Laser Lithotripsy, (Right) - Deyvi Mcintyre MD s Right Stent Placement - Deyvi Mcintyre MD Surgeon Deyvi Mcintyre MD Body Component Engineer None Estimated Blood Loss 0 Findings Consistent with Post-Op Diagnosis Specimens none Description of Procedure The patient was identified in the preoperative holding area, appropriate informed consents were reviewed and completed and the patient was transferred to the operative suite. Upon arrival, appropriate antibiotics and anesthesia were administered and the patient was placed in dorsal lithotomy position and prepped and draped in sterile fashion. Beginning case I passed a 22 Tamazight cystoscope per urethra. Inspection revealed a very heavily trabeculated bladder with several diverticuli but no stones, no inflammation, no tumors, no other abnormalities. Ureteral orifices were identified and I cannulated the right UO with a sensor wire and a 5 Tamazight open- ended catheter. I advanced a semirigid ureteroscope as far as possible but did not encounter the stone with the scope. Of note, the ureter was quite elongated and tortuous. In turn I placed a wire through the scope and into the kidney. I then advanced a flexible ureteroscope into the kidney. Full renoscopy was conducted followed by extraction of the scope into the ureter. In the proximal ureter above one of the twists I encountered a large stonelikely 8 to 9 mm I fragmented the stone into pieces deemed safe for spontaneous passage and attempted to irrigate as much of the stone out of the ureter as possible. I performed a completion exit ureteroscopy and saw no other stones within the ureter. I placed a 6 Tamazight by 24 cm double-J stent with good curl in the kidney as well as the bladder. The case was concluded and she was reversed of anesthesia and taken to the recovery room in stable condition. There were no complications. I attest to the content of the Intraoperative Record and any orders documented therein. Any exceptions are noted below.
--- NOTE | 2023-04-24 17:57 | Discharge Summary ---
Date of Service April 24, 2023 Admission HPI Per Admitting Provider Stefanie is an 82 year old female with a PMH significant for HFrEF (LVEF of 25-30% as of 02/2023), HTN, degenerative disc disease (s/p lumbar, spinal surgery), chronic back pain, and osteopenia who presented to the [facility] ED on 04/22 due to right-sided abdominal pain. She remained stable while in the ED. Labs were significant for a leukocytosis of 13 with neutrophil predominance of 10, and UA with 2+ ketones, 1+ blood, 10-30 RBC's, with bacteria. Prior to admission the patient was given 1.5L NSS, 6 mg total IV morphine, 10 mg IV toradol, and 8 mg IV zofran. At the time of the exam the patient was lying in bed in no acute distress with her Daughter sitting bedside, history was obtained from both. The patient started to develop right back/flank pain last night. This pain felt very similar to the pain from her first kidney stone when she was admitted in February. The pain continued and was associated with nausea but no vomiting, they came to the ED as they were concerned she had another kidney stone. Her pain is currently well controlled after receiving morphine in the ED. She denies recent fever, chest pain, SOB, dysuria, increased urinary frequency, hematuria, diarrhea, LE swelling, and recent trauma. She and her duaghter confirmed she has a living will and is a Full Code. Please refer to Dr. Crandall's attestation for any changes to the treatment plan Principal Diagnosis Right renal colic status post lithotripsy and stent placement on 04/23/[address] Deyvi Mcintyre Discharge Exam Awake and alert appropriate no back pain right CVA angle is not tender Discharge Data Allergies Allergy/AdvReac Type Severity Reaction Status Date / Time codeine AdvReac Mild NAUSEA/VOMI Verified 04/16/23 07:56 T morphine AdvReac Mild NAUSEA/VOMI Verified 04/16/23 07:56 T Consultations 04/22/23 19:03 ED Decision to Admit Stat 04/22/23 19:41 Consult Urology Routine Procedures Performed Operation Date: 04/23/23 13:55 Actual Procedures p Cystoscopy, Right Ureteroscopy, Right Laser Lithotripsy, (Right) - Deyvi Mcintyre MD s Right Stent Placement - Deyvi Mcintyre MD Ordered Studies 04/22/23 16:59 CT stones [CT abd pelvis wo con] Stat 04/23/23 FL KUB Routine Hospital Course (1) Hydroureteronephrosis: right back/flank pain -CT of the abd/pelvis wo con shows Moderate right-sided hydroureteronephrosis secondary to an obstructing 9 mm ureteral calculus at the level of L5-S1 -Urology has performed laser lithotripsy and stent on 04/23/2023 -Pain control with prn Tylenol (2) COPD (chronic obstructive pulmonary disease): -Stable on RA -Continue Incruse Ellipta -Incentive spirometry (3) HFrEF (heart failure with reduced ejection fraction): -Currently euvolemic , EF 25-30% -As remained stable during hospital stay -Continue entresto /coreg Total Time Total Time Spent Total Time Spent (In Minutes): It required less than 30 minutes to prepare this patient for discharge Discharge Plan Discharge Items Patient Disposition: Home - Self-Care Reason For Visit: RIGHT-SIDED HYDROURETERONEPHROSIS, 9MM URETERAL ST Discharge Diagnosis: right sided kidney stone, s/p stent and lithotripsy Activity: Resume your previous activity Non-emergency contact: Primary Care Provider Call non-emergency contact if: your symptoms worsen Follow-up/Referrals: Deyvi Mcintyre MD [Physician] - 05/01/23 9:00 am Eron Stack MD [Primary Care Provider] - 05/01/23 11:00 am (APPOINTMENT WITH [facility]) Diet: Regular Addtl Attending Provider Instructions: How to Treat Kidney Stones at Home * Drink lots of water. ... * Cut back on other drinks. ... * Add ashley to your water and food. ... * Take wktt-fek-bixmelc (OTC) pain relievers. ... * Avoid salty foods. ... * Cut back on animal protein. ... * * use pain medicines carefully * Addtl Insulator Tester Provider Instructions: Please call the urology office at [phone] with any questions, concerns or need to reschedule appointments for any reason. We are happy to assist you. While you have a ureteral stent in place: Some discomfort is normal. Certain movements may trigger pain or a feeling that you need to urinate. You may also feel mild soreness or pressure before or during urination. These symptoms should go away a few days after the stent is removed. Your urine may be slightly pink or red. This is due to bleeding caused by minor irritation from the stent. This may happen on and off while you have the stent, it is not harmful and is to be expected. Medication to help minimize discomfort or bladder spasms, or to prevent infection may be prescribed. Take this as directed. Drink plenty of fluids to help flush out your urinary tract. When to call [facility] Urology at [phone]: Your urine contains heavy blood clots You are constantly leaking urine Fever of 101F or higher, chills, nausea, or vomiting Your pain is not relieved with medication The end of the stent comes out of your urethra Pending Studies at Discharge: No Stand-Alone Forms: My [facility], Smoking Cessation Medications and DC Order Prescriptions: Continued furosemide 40 mg tablet 40 mg PO DAILY PRN (Reason: weight gain) Qty: 90 3RF Rx Instructions: takes if gains 3lbs overnight potassium chloride 10 mEq tablet extended release 10 meq PO DAILY PRN (Reason: Take with furosemide) Qty: 30 3RF Systane (PF) 0.4-0.3 % Dropperette 1 drp OPHTHALMIC (EYE) BID PRN (Reason: Dry Eyes) PreserVision AREDS-2 250-90-40-1 mg Capsule 1 tab PO BID acetaminophen 500 mg Tablet 500 mg PO Q6H PRN (Reason: Fever Or Pain) cyanocobalamin (vitamin B-12) [Vitamin B-12] 1,000 mcg Tablet 1,000 mcg PO QAM calcium citrate-vitamin D3 [Citracal + D Maximum] 315 mg-6.25 mcg (250 unit) Tablet 1 tab PO QAM carvedilol 3.125 mg Tablet 3.125 mg PO BIDM Qty: 60 1RF Incruse Ellipta 62.5 mcg/actuation Blister With Device 1 inh inhalation QAM Qty: 30 1RF Entresto 24-26 mg Tablet 1 tab PO BID Qty: 60 1RF Discharge Orders: Discharge Order (Routine); Ordered 04/24/23 Ordered By: Eron Stack Admission Data Admit Date/Time: 04/22/23 19:10 Attending Provider: Eron Stack Admit Provider: Beba Crandall Primary Care Provider: Eron Stack Other Providers: Beba Crandall ; Pablo Oconnell Other Interventions: Discharge Summary Assessment (RN) Last Done: 04/24/23 09:07 Coding Level of Care Code 60282 IN/OBS DISCH 30 MIN/LESS Diagnoses Hydroureteronephrosis N13.30 COPD (chronic obstructive pulmonary disease) J44.9 HFrEF (heart failure with reduced ejection fraction) I50.20
== END 2023-04-24 09:30 | disposition home or self-care (01) | DRG 660 ==
LOC: ED 15:09 → 3E 19:10 → SUPCPDRO 19:10 → SUATTDRO 19:10 → 3E 19:38

== ENCOUNTER 2025-05-25 05:18 | Observation (INO) ==
--- NOTE | 2025-05-19 13:32 | Anesthesiology Consultation ---
Date of Service May 19, 2025 Assessment & Plan (1) Encounter for pre-operative examination: - Infectious disease screening: Per assessment on 05/19/25- No known recent infectious disease contacts or current infectious disease symptoms. - Outpatient joint assessment: Pt currently scheduled for inpatient pathway. If surgeon requests review for outpatient joint pathway, patient is not a recommended candidate for outpatient joint program from anesthesia standpoint based on available information. - Possible difficult intubation per records given history of ACDF 2013 (glidescope use); MOISES #4 igel used during 04/23/23 cystoscopy/laser litho/stent done at [facility] without noted issue. - Cardiology visit 02/09/25: "The patient is stable from a cardiovascular standpoint. She demonstrates excellent control of her blood pressure. Her cholesterol values are also controlled. She remains well compensated in terms of her nonischemic cardiomyopathy. We will reassess systolic function prior to her next visit. Highly complex medical issues are managed and discussed today. Plan 1. Continue current medications. 2. Continue active lifestyle and exercise program. 3. Consider daily weights & scale diuretics 4. Echocardiogram prior to next visit. 5. Lipid panel per primary care team. 6. Follow-up in 6 months." - PCP visit 05/20/25: "84-year-old added on. no cp or new exertional symptoms.. feeling better overall and added on for preop . at gym with regular 25 minutes treadmill and stationary bike.. she has a nx of nonischemic cardiomyopathy ef 25 to 30 percent [facility] in february 2025. spoke with cardiology today and they has sent separate medical forms and that she is stable for surgery next week without any further testing.. no sob or edema.. has not needed her prn lasix.. weight stable and bp controlled.. revieed [sic] notes from dr lakhani and did confirm with him stable from cardiac standpoint for surgery given her issues below and ekg.. she has no exertional symptoms.. reviewed preop anesthesia notes from yesterday and had preop ekg which shows nonspecific changes.. and seen cardiology and prior negative stress testing for ischemia.. started on entresto and carvedolol.. coronary calcification on coreg and entresto and no lightheadness or presyncope or tachy that she has noticed.." Chart Review Chart Review: Acceptable Risk for Surgery (pending evaluation DOS) and Patient seen in Pre Admission Testing Teaching & Discussion Pre-Anesthesia Teaching/Discussion Notes: Instructed NPO after midnight before surgery,except medications with 15 cc of water. Medication instructions provided according to the PAT guidelines. History Surgery Operation Date: 05/25/25 07:00 Proposed Procedures p Right Total Knee Arthroplasty - Parveen Sterling MD Height/Weight Height: 5 ft 2 in Weight: 51.2 kg Allergies Allergy/AdvReac Type Severity Reaction Status Date / Time No Known Allergies Allergy Verified 05/25/25 05:40 Medications Home Medications Medication Instructions Recorded Confirmed Last Taken peg 400-propylene glycol (PF) 0.4 1 drp ophthalmic (eye) BID Dry Eyes 05/21/19 05/25/25 05/25/25 04:00 %-0.3 % eye drops in a dropperette (Systane (PF)) acetaminophen 500 mg tablet 500 mg PO Q6H PRN Fever Or Pain 02/21/23 05/25/25 05/22/25 09:00 calcium 315 mg (as 1 tab PO HS 02/21/23 05/25/25 05/24/25 09:00 citrate)-vitamin D3 6.25 mcg (250 unit) tablet (Citracal + Vitamin D Maximum) cyanocobalamin (vitamin B-12) 1,000 mcg PO QAM 02/21/23 05/25/25 05/24/25 09:00 1,000 mcg tablet (Vitamin B-12) vit C 250 mg-vit E 90 mg-zinc 40 1 tab PO BID 02/21/23 05/25/25 05/20/25 18:00 mg-copper 1 dl-kelqjo-hlqphl capsule (PreserVision AREDS-2) furosemide 40 mg tablet 40 mg PO DAILY PRN weight gain #90 06/24/23 05/25/25 Unknown tabs potassium chloride 10 mEq 10 meq PO DAILY PRN Take with 08/03/23 05/25/25 Unknown tablet,extended release furosemide #30 tabs cholecalciferol (vitamin D3) 125 125 mcg PO Q OTHER DAY 11/03/24 05/25/25 05/24/25 09:00 mcg (5,000 unit) tablet (Vitamin D3) sacubitril 24 mg-valsartan 26 mg 1 tab PO BID #180 tabs 01/20/25 05/25/25 05/24/25 21:00 tablet (Entresto) albuterol sulfate 90 mcg/actuation 1 puff inhalation Q6H PRN 05/25/25 05/25/25 Unknown aerosol inhaler (Ventolin HFA) shortness of breath or wheezing carvedilol 6.25 mg tablet (Coreg) 6.25 mg PO BID 05/25/25 05/25/25 05/25/25 04:00 Active Medications Generic Name Dose Route Start Last Admin Trade Name Freq PRN Reason Stop Dose Admin Lactated Ringer's 1,000 mls @ 15 mls/hr 05/25/25 06:00 05/25/25 06:20 Lr IV 05/26/25 05:59 15 mls/hr .Q24H SHADY Administration Lactated Ringer's 1,000 mls @ 60 mls/hr 05/25/25 06:00 05/25/25 06:27 Lr IV 05/25/25 22:39 Not Given .[id number] SHADY Past Medical History Medical History Back pain Chronic systolic (congestive) heart failure Follows with [facility] cardio Degenerative disc disease Dry eye syndrome History of COPD Per records, patient denies Hx of cancer of lung Per chest CT 12/08/18: "No evidence for recurrent malignancy status post left upper lobectomy." Hx of difficult intubation Hx of mitral valve insufficiency Follows with [facility] cardio/[place] Hx of osteoporosis Hx of psoriatic arthritis Hx of pulmonary edema Hx of pulmonary hypertension Hx of renal calculi Lumbar facet arthropathy LVH (left ventricular hypertrophy) Mitral regurgitation Nonischemic cardiomyopathy Follows with [facility] cardio Osteoarthritis Osteoporosis Psoriasis Exercise / Class Metabolic Activity III < 4 Walking/Shop/Light housework Past Family History Family History Other No significant family history Past Surgical History Surgical History Family history of reaction to anesthesia Mother, Sister, Daughter- nausea Fusion of spine 4 Lumbar Fusions (total 3-4 back surgeries), most recent 1990 H/O cervical spine surgery ~2017 *good rom H/O wrist surgery Right History of arthroscopy Right Knee History of bilateral tubal ligation History of cataract surgery right/left History of dilatation and curettage D&E (1970) History of herniorrhaphy History of hip surgery orif>left hip (hardware intact) History of lobectomy of lung Upper Left Lobe History of open reduction and internal fixation (ORIF) procedure Left hip fracture History of shoulder surgery Right Reversal TSA; Left Reverse History of tooth extraction History of total left knee replacement Hx of colonoscopy with polypectomy (10/2024) 2023, taken to [facility] to have a polyp removed that couldn't be removed at [facility] Nausea and vomiting after administration of anesthetic agent "not with colonoscopies" S/P cystoscopy with ureteral stent placement w/laser lithotripsy, 2022 Past Anesthesia History No Hx of Anesthesia Complications and No Family Hx of Anesthesia Complications History of PONV No Hx of Motion Sickness and History of PONV Social History Smoking Status: Former smoker tobacco type: cigarettes Smoking cigarettes per day: 20 cigs/day Do You Dip or Chew Tobacco: No Hx Alcohol Use: No Hx Substance Use: No substance use type: does not use Review of Systems Patient denies chest pain, shortness of breath, fever, chills, cough, wheezing. Physical Exam Vital Signs Last Vital Signs Temp 36.4 C L 05/25/25 05:55 Pulse 57 L 05/25/25 05:55 Resp 20 05/25/25 05:55 BP 139/83 05/25/25 05:55 Pulse Ox 96 05/25/25 05:55 O2 Del Method Room Air 05/25/25 05:55 BP 121/58 P 58 TEMP 97.5 SP02 97%RA RESP 16 Physical Full cervical extension range of motion. Full TMJ range of motion. TMD > 3.5 finger breaths Mallampati Score I Dentition: intact, + implants Lungs: clear throughout to auscultation Cardiac: regular rate, regular rhythm with occasional extra beat, no murmurs noted Spine: normal Carotid arteries: negative bruit Extremities: no LE edema Lab Results Anesthesia Preop Results Results Anesthesia Widget: WBC 7.83 K/ul (4.8-10.8) 05/19/25 Hgb 12.5 g/dL (12.0-16.0) 05/19/25 Hct 36.8 % (37.0-47.0) L 05/19/25 Plt 240 K/uL (130-400) 05/19/25 Na 141 mmol/L (136-145) 05/19/25 K 3.5 mmol/L (3.5-5.1) 05/19/25 Cl 106 mmol/L (98-107) 05/19/25 CO2 28 mmol/L (21-32) 05/19/25 BUN 22 mg/dl (6-23) 05/19/25 Creat 0.76 mg/dl (0.6-1.2) 05/19/25 Glucose Level 97 mg/dl (70-99(Fasting)) 05/19/25 PT 10.1 Seconds (9.0-12.0) 05/19/25 PTT 28 Seconds (21-31) 05/19/25 INR 1.0 (0.9-1.1) 05/19/25 TSH 1.416 uIu/ml (0.300-4.500) 05/19/25 Urine Color Yellow 05/19/25 Urine Appearance Clear (Clear) 05/19/25 Urine pH 5.0 (4.5-7.5) 05/19/25 Urine Specific Shafter 1.025 (1.000-1.030) 05/19/25 Urine Protein Negative (Negative) 05/19/25 Urine Glucose (UA) Negative (Negative) 05/19/25 Urine Ketones Trace (Negative) H 05/19/25 Urine Blood Negative (Negative) 05/19/25 Urine Nitrite Negative (Negative) 05/19/25 Urine Bilirubin Negative (Negative) 05/19/25 Urine Urobilinogen Negative (Negative) 05/19/25 Urine Leukocyte Esterase Negative (Negative) 05/19/25 Blood Type A Positive 05/19/25 Antibody Screen POSITIVE A 05/19/25 Testing Laboratory Results *Positive antibodies: Confirmed with Ernesto with blood bank that they are aware and he indicates nothing further needed preoperatively from PAT perspective* Electrocardiogram Date: 05/19/25 SB with PACs in pattern of bigeminy. 59bpm. NS ST/TWA. Compared to prior ECG 02/23/2023, Vent rate decreased by 63bpm per sales forecast analyst comparison. Chest X-Ray Date: 12/02/24 FINDINGS: Bilateral shoulder arthroplasties and postoperative finding within the spine are incidentally noted. Elevation of the left hemidiaphragm is unchanged. There is no consolidation to suggest pneumonia. No pneumothorax or pleural effusion is identified. Cardiomediastinal silhouette is unremarkable.. IMPRESSION: No acute cardiopulmonary findings. Echocardiogram Date: 05/29/23 EF 45-50%. No RWMA. Mild cLVH. Mild to moderate TR.
--- NOTE | 2025-05-19 13:55 | PAT Medication Instructions ---
Medication Instructions Date of Service May 19, 2025 Home Medications Medication Instructions Recorded furosemide 40 mg tablet 40 mg PO DAILY PRN weight gain #90 06/24/23 tabs potassium chloride 10 mEq 10 meq PO DAILY PRN Take with 08/03/23 tablet,extended release furosemide #30 tabs albuterol sulfate 90 mcg/actuation 1 puff inhalation Q6H PRN 12/24/24 aerosol inhaler shortness of breath or wheezing #18 grams carvedilol 6.25 mg tablet 6.25 mg PO BID #180 tabs 01/20/25 sacubitril 24 mg-valsartan 26 mg 1 tab PO BID #180 tabs 01/20/25 tablet (Entresto) peg 400-propylene glycol (PF) 0.4 %-0.3 % eye drops in a dropperette (Systane (PF)) 1 drp ophthalmic (eye) BID Dry Eyes acetaminophen 500 mg tablet 500 mg PO Q6H PRN Fever Or Pain calcium 315 mg (as citrate)-vitamin D3 6.25 mcg (250 unit) tablet (Citracal + Vitamin D Maximum) 1 tab PO HS cyanocobalamin (vitamin B-12) 1,000 mcg tablet (Vitamin B-12) 1,000 mcg PO QAM PreserVision AREDS-2 1 tab PO BID furosemide 40 mg tablet 40 mg PO DAILY PRN weight gain potassium chloride 10 mEq tablet,extended release 10 meq PO DAILY PRN Take with furosemide cholecalciferol (vitamin D3) 125 mcg (5,000 unit) tablet (Vitamin D3) 125 mcg PO Q OTHER DAY albuterol sulfate 90 mcg/actuation aerosol inhaler 1 puff inhalation Q6H PRN shortness of breath or wheezing carvedilol 6.25 mg tablet 6.25 mg PO BID sacubitril 24 mg-valsartan 26 mg tablet (Entresto) 1 tab PO BID albuterol 90 mcg-budesonide 80 mcg/actuation HFA aerosol inhaler (Airsupra) 2 inh inhalation DAILY PRN sob STOP taking 2 weeks before surgery (or as soon as possible if surgery is within 2 weeks) PreserVision AREDS-2 1 tab PO BID DO NOT take the morning of surgery cyanocobalamin (vitamin B-12) 1,000 mcg tablet (Vitamin B-12) 1,000 mcg PO QAM furosemide 40 mg tablet 40 mg PO DAILY PRN weight gain potassium chloride 10 mEq tablet,extended release 10 meq PO DAILY PRN Take with furosemide cholecalciferol (vitamin D3) 125 mcg (5,000 unit) tablet (Vitamin D3) 125 mcg PO Q OTHER DAY sacubitril 24 mg-valsartan 26 mg tablet (Entresto) 1 tab PO BID (unless told otherwise by surgeon/prescriber) Take morning of surgery With a small sip of water, OTHERWISE NOTHING TO EAT OR DRINK AFTER MIDNIGHT: peg 400-propylene glycol (PF) 0.4 %-0.3 % eye drops in a dropperette (Systane (PF)) 1 drp ophthalmic (eye) BID Dry Eyes acetaminophen 500 mg tablet 500 mg PO Q6H PRN Fever Or Pain (if needed) albuterol sulfate 90 mcg/actuation aerosol inhaler 1 puff inhalation Q6H PRN shortness of breath or wheezing (if needed) carvedilol 6.25 mg tablet 6.25 mg PO BID albuterol 90 mcg-budesonide 80 mcg/actuation HFA aerosol inhaler (Airsupra) 2 inh inhalation DAILY PRN sob (if needed) Please bring rescue inhaler with you to hospital day of surgery if possible Take evening before surgery peg 400-propylene glycol (PF) 0.4 %-0.3 % eye drops in a dropperette (Systane (PF)) 1 drp ophthalmic (eye) BID Dry Eyes acetaminophen 500 mg tablet 500 mg PO Q6H PRN Fever Or Pain (if needed) calcium 315 mg (as citrate)-vitamin D3 6.25 mcg (250 unit) tablet (Citracal + Vitamin D Maximum) 1 tab PO HS furosemide 40 mg tablet 40 mg PO DAILY PRN weight gain (if needed) potassium chloride 10 mEq tablet,extended release 10 meq PO DAILY PRN Take with furosemide (if needed) albuterol sulfate 90 mcg/actuation aerosol inhaler 1 puff inhalation Q6H PRN shortness of breath or wheezing (if needed) carvedilol 6.25 mg tablet 6.25 mg PO BID sacubitril 24 mg-valsartan 26 mg tablet (Entresto) 1 tab PO BID albuterol 90 mcg-budesonide 80 mcg/actuation HFA aerosol inhaler (Airsupra) 2 inh inhalation DAILY PRN sob (if needed) Other Notes If you have any questions please call us at [phone] or [phone] or [phone] or [phone]
[2025-05-25] MEDS: LR 15ML/HR IV SCH (06:20)
[2025-05-25] MEDS: LR 60ML/HR IV SCH (06:27)
[2025-05-25] MEDS ORDERED: ATROPINE SULFATE 0.1 MG/ML 10ML SYR IV PRN (06:28)
[2025-05-25] MEDS ORDERED: ONDANSETRON INJ 2 MG/ML 2 ML VIAL IV PRN (06:28)
[2025-05-25] MEDS ORDERED: BUPIVACAINE 0.5 % 5 MG/1 ML PF 10ML VIAL ONE (06:29)
[2025-05-25] MEDS ORDERED: BUPIVACAINE 0.25% PF 30 ML VIAL ONE (06:29)
[2025-05-25] MEDS ORDERED: MIDAZOLAM HCL 1 MG/ML 2ML VIAL ONE (06:36)
[2025-05-25] MEDS ORDERED: ONDANSETRON INJ 2 MG/ML 2 ML VIAL ONE (06:38)
[2025-05-25] MEDS ORDERED: LIDOCAINE 2% 2 ML VIAL/AMP(20MG/ML) INFIL ONE (06:38)
[2025-05-25] MEDS ORDERED: PROPOFOL IV EMULSION 10 MG/ML 20 ML VIAL IV ONE ×2 (06:38→07:57)
[2025-05-25] MEDS: TRANEXAMIC ACID 1,000 MG **IV Pre-op IV SCH (06:42)
--- NOTE | 2025-05-25 06:43 | History & Physical Bridge Note ---
Date of Service May 25, 2025 History & Physical Bridge Note I have examined the patient, reviewed the History & Physical and in the interval since the performance of the History & Physical I have noted the following changes of clinical significance:consent and site verified.IM taisha complicates procedure. no changes noted
[2025-05-25] MEDS ORDERED: ePHEDrine sulfate 50 MG/5 ML SYR ONE (07:10)
[2025-05-25] MEDS ORDERED: PHENYLEPHRINE 100MCG/ML 5ML SYR ONE (07:10)
[2025-05-25] MEDS ORDERED: VASOPRESSIN 20 UNIT/ML VIAL ONE (07:11)
[2025-05-25] MEDS: ROPIV 0.5% 246mg, Ketorolac 30mg, EPINEPHrine 0.5mg in NSS INFIL SCH (07:40)
[2025-05-25] MEDS: ORTHO JOINT ANESTHETIC ONE (07:41)
--- NOTE | 2025-05-25 08:46 | Post Operative Brief Note ---
Immediate Post Op Note Date of Surgery May 25, 2025 Pre & Post Diagnosis Operation Date: 05/25/25 07:00 <No data on this case meets the specified criteria> Osteoarthritis right knee pre and postop diagnosis same I identified the patient and participated in the time-out.: Yes Procedure Operation Date: 05/25/25 07:00 <No data on this case meets the specified criteria> Cemented right total knee replacement Surgeon Parveen Sterling MD Industrial Furnace Fabric[facility] no resident or fellow available Estimated Blood Loss 10 Findings Consistent with Post-Op Diagnosis Severe medial osteoarthritis the case index complicated are increased by the fact she had retained intramedullary femoral nail modifier 22 applies here needed fluoroscopy Fluids 1200 cc Complications None
--- NOTE | 2025-05-25 08:50 | Operative Report ---
Post Operative Report Pre & Post Diagnosis Operation Date: 05/25/25 07:00 <No data on this case meets the specified criteria> Osteoarthritis right knee with varus deformity tricompartmental pre and postop diagnosis same I identified the patient and participated in the time-out.: Yes Procedure Operation Date: 05/25/25 07:00 <No data on this case meets the specified criteria> Cemented right total knee replacement modifier 22 applies based on the fact there was a retained intramedullary nail requiring intraoperative fluoroscopy for hip location Surgeon Parveen Sterling MD [employer] no resident or fellow available Estimated Blood Loss 10 Findings Consistent with Post-Op Diagnosis Severe tricompartmental disease particularly medial compartment Fluids 1200 cc Specimens Bone pathology Drains None Complications None Indications Severe pain failed conservative management Description of Procedure At the patient was appropriate notified site verified consent verified antibiotics friend being given the hip was located using fluoroscopy. He was kept during the case. Special instruments were brought in to try to get around the femoral nail and the canal. Once everything was prepped and draped in his routine fashion the hip located leg was prepped and draped use routine fashion tourniquet plated to 250 mmHg after exsanguination limb and out of her pannus for total of 56 minutes. Midline exposure was utilized parapatellar arthrotomy performed synovectomy completed large osteophytes resected off around the entire distal femur proximal medial tibia distal femur was then entered we are able to use special instrumentation to get around the taisha this allowed us to limit our fluoroscopy exposure. Distal femoral guide was then placed and a 10 mm cut made. This looked like it was in excellent position about 5 to 6 degrees of valgus. The tibia was then subluxated proximally removed the remaining meniscal elements in the proximal tibia cut 4 mm. Extension gap was checked checked it was excellent. Femur was then sized to a between a 6 and a 7 it was measured 6 and cut slight scuffing anteriorly but no significant notching. Anterior posterior, chamfer cuts were made and flexion gap checked it was excellent. The posterior capsule was then injected with Ortho mix. The box cut was then made and the size 6 fit wellness lug holes made. The tibia was then subluxated anteriorly broached and reamed for size 6 and then the 6 mm poly fit well everything looked good there was good midrange stability with a 6 poly. There is excellent stability to varus valgus stress at 0 and 30 degrees. Patella tracked well. The patella was everted resected leaving 15 mm total thickness was about 25. 38 button was then seated. Ortho mix was then injected all about the knee knee was implants were then removed soaked in Betadine for 3 minutes and the permanent cemented into position tibia femur patella in an order at 12 minutes the tourniquet deflated at 14 minutes knee was inspected minimal cement removal required knee was then irrigated 1 final time with Pulsavac Betadine and then the permanent liner seated the knee reduced and closed using #2 Vicryl 2-0 Vicryl and stainless steel clips appropriate dressing applied the patient transferred recovery in satisfactory addition he tolerated the procedure well. EBL was trace crystalloid 1200 cc. Summary of implants ATT UNE total knee system size 6 femur posterior cruciate substituting size 6 tibial rotating platform tray size 6 spacer 6 mm thick 38 patella. 2 bags of Palacos G cement. I attest to the content of the Intraoperative Record and any orders documented therein. Any exceptions are noted below.
--- NOTE | 2025-05-25 08:50 | Orthopedic Progress Note ---
Date of Service May 25, 2025 Orthopedic Progress Note Patient underwent total knee replacement denies chest pain shortness of breath fever chills nausea vomit or headache. Wound dressing clean dry and right leg. X-ray pending. Family contacted.
--- NOTE | 2025-05-25 08:52 | Discharge Summary ---
Date of Service May 26, 2025 Admission HPI Per Admitting Provider Severe osteoarthritis right knee Principal Diagnosis Status post right knee replacement Discharge Data Allergies Allergy/AdvReac Type Severity Reaction Status Date / Time No Known Allergies Allergy Verified 05/25/25 05:40 Vaccinations None Consultations None Procedures Performed Operation Date: 05/25/25 07:00 <No data on this case meets the specified criteria> Cemented right total knee replacement Ordered Studies 05/25/25 07:00 [place] fluoroscopy <1hr Routine Bone pathology x-ray Hospital Course (1) Status post right knee replacement: Total Time Total Time Spent Total Time Spent (In Minutes): 10 Discharge Plan Discharge Items Patient Disposition: Home - Home Health Services Reason For Visit: right knee s/p TKA Discharge Diagnosis: Status post right total knee replacement Condition on Discharge: Good Activity: Per Instructions section Lifting: Wait until after follow-up appointment Bathing: Keep incision dry Exercise/Sports: Wait until after follow-up appointment Driving/Machine Use: No driving until cleared by orthopedics Weightbearing: Full weightbearing Non-emergency contact: Surgeon Call non-emergency contact if: you have any medication questions, your pain is not controlled, your temperature is above 101, your wound has increased redness, your wound has increased drainage and your wound pain has increased Follow-up/Referrals: Pro,Hammad Meyer MD [Primary Care Provider] - Brody Perry PA-C [Physician [employer]pper] - 06/10/25 2:00 pm Diet: Heart Healthy Addtl Attending Provider Instructions: New Medicine: * You will likely be taking one or more of these medications: 1. Percocet - Take, as directed, when you need it, every four to six hours to control your pain. 2. Iron Sulfate - Take 1x each day for the month after surgery to help you replace the blood lost during surgery. 3. Eliquis- Thins your blood to lessen the chance of forming a blood clot. * The most common side effects of pain medicine and iron are nausea and constipation. If nausea or constipation is too much of a problem or if you have any questions about your new medicines or doses, call [facility] at . We will try to help you manage these issues. "VERY IMPORTANT TO READ AND REVIEW" Blood Clots and Blood Thinning Medicine: * You are given Eliquis during the immediate post-operative period to lessen the risk of blood clots forming in your legs and/or lungs. It is usually given for six weeks after surgery. Pain: * The immediate post-operative period after knee replacement surgery is often quite painful. * You are given a prescription for pain medicine. You should take it, as directed, when you need it, especially before physical therapy and before going to bed. Pain that interferes with sleep is very common and can last several months. * You will likely need pain medicine for the first four to six weeks. It will not stop all of the pain. The pain will lessen and as you feel better, you may change to milder pain medicine such as Tylenol. * The most common side effects of pain medicine are nausea and constipation, so don't take more than you need. Physical Therapy: * You will have physical therapy two or three times each week for four to six weeks after your surgery in order to regain your knee range of motion and to retrain your knee to work properly. * It is just as important to make sure you are getting your knee perfectly straight as it is to regain your knee bend. * Taking a pain pill an hour before therapy can help you have a more productive and comfortable therapy session if needed. Home Exercise: * You were shown a series of exercises (heel props, heel slides, etc.) in the hospital. Do these exercises three to four times each day including the exercises you were shown in physical therapy. Walking: * Get up and walk several times each day. For the first four weeks, try not to stand or walk for more than one hour at a time. If you do stand or walk for more than one hour, you will not hurt anything, but your knee and leg will likely swell. * As you feel comfortable, you may change from the walker or crutches to a cane and then to independent walking. SELF CARE INSTRUCTIONS AFTER TOTAL KNEE REPLACEMENT A. You may need to continue a physical therapy program after discharge from the hospital. There are several options available to you. Your doctor will assist you in selecting the best one for you. 1. An out-patient facility 2 to 3 times a week for therapy or home therapy. 2. Continue working on all exercises taught to you in the hospital. Your goals should be to increase bending of your knee to 90 degrees and beyond and to fully straighten your knee. B. You may progress at your own pace from walking with a walker or crutches to a cane; then to no assistive devices. C. Make walking a part of your daily routine. Be up as much as comfortable with rest periods throughout the day. Rest with leg elevation is very important. Use the ice wrap frequently for the first 3-4 weeks. D. There are no restrictions on activities. You may ride in a car, shop, participate in medical affairs manager and all social activities. E. Wear the long elastic stockings (JUNG hose) 20 hours a day for six weeks after surgery. They can be removed several times a day for laundering and for a shower. F. Do not place a pillow behind your knee when resting. A pillow at your ankle is okay. G. You may return to previous diet. VERY IMPORTANT TO READ AND REVIEW A. Take Eliquis (blood thinning medication) as directed by your doctor. B. There are a few signs you need to watch for after you are home. Call [facility] if you notice any of the followin. Increased severe knee pain. Some pain is expected especially when you exercise. 2. Increased swelling in your leg or knee; pain or swelling of the calf muscle in either lower leg. 3. Any fluid drainage from the incision. 4. Shortness of breath or chest pain. C. Please call [facility] at if you have any concerns or questions about your operation or recovery. The doctor or his nurse will return your call promptly. D. You must take antibiotics before dental work, bladder, bowel or other surgery. Call the office to obtain a prescription at least 2 days prior to your appointment. * CALL IF INCREASED PAIN, REDNESS, DRAINAGE OR FEVER GREATER THAT 101. * Sutures should be removed 12-14 days after surgery unless you are on chronic steroids, then it will be 14-18 days after surgery. Call your doctor if: * Temperature above 101 degrees F. * Pain not relieved by pain medicine ordered. * Increased drainage or redness from incision. * Notify your doctor with any questions or concerns. MEDICATIONS: * Please take your prescriptions as instructed at your pre-op appointment and/or see medication discharge instructions listed above. * If concerns develop, call your physician's office at . SPECIAL CARE INSTRUCTIONS: * Ice/Elevate as instructed. * Keep dressing clean, dry, intact. * Your surgical extremity may be discolored due to prepping agents used on the skin. A bluish-green tint is a normal variant and should not cause alarm. Call your doctor at [phone] if: * Temperature above 101 degrees * Pain not relieved by pain medicine ordered * There is increased drainage or redness from any incision * You have any unanswered questions, problems or concerns. FOLLOW UP VISIT: * If not already scheduled, please call the office at to schedule a follow-up appointment. Pending Studies at Discharge: Yes Studies:: Bone pathology Stand-Alone Forms: [facility], Smoking Cessation Medications and DC Order Prescriptions: New Eliquis 2.5 mg tablet 2.5 mg PO BID Qty: 80 0RF No Action furosemide 40 mg tablet 40 mg PO DAILY PRN (Reason: weight gain) Qty: 90 3RF Rx Instructions: takes if gains 3lbs overnight potassium chloride 10 mEq tablet extended release 10 meq PO DAILY PRN (Reason: Take with furosemide) Qty: 30 3RF Patient Comments: has not needed for a long time Entresto 24-26 mg tablet 1 tab PO BID Qty: 180 3RF Systane (PF) 0.4-0.3 % Dropperette 1 drp OPHTHALMIC (EYE) BID PreserVision AREDS-2 250-90-40-1 mg Capsule 1 tab PO BID acetaminophen 500 mg Tablet 500 mg PO Q6H PRN (Reason: Fever Or Pain) cyanocobalamin (vitamin B-12) [Vitamin B-12] 1,000 mcg Tablet 1,000 mcg PO QAM calcium citrate-vitamin D3 [Citracal + D Maximum] 315 mg-6.25 mcg (250 unit) Tablet 1 tab PO HS cholecalciferol (vitamin D3) [Vitamin D3] 125 mcg (5,000 unit) Tablet 125 mcg PO Q OTHER DAY carvedilol [Coreg] 6.25 mg tablet 6.25 mg PO BID Rx Instructions: must administer with a meal/food albuterol sulfate [Ventolin HFA] 90 mcg/actuation HFA aerosol inhaler 1 puff inhalation Q6H PRN (Reason: shortness of breath or wheezing) Admission Data Admit Date/Time: 05/25/25 09:05 Attending Provider: Parveen Sterling Admit Provider: Parveen Sterling Primary Care Provider: Hammad Soria Other Providers: [facility]
--- NOTE | 2025-05-25 09:00 | Operative Report ---
Post Operative Report Pre & Post Diagnosis Operation Date: 05/25/25 07:00 Pre-Op Diagnosis: Osteoarthritis Knee Right Post-Op Diagnosis: Osteoarthritis Knee Right I identified the patient and participated in the time-out.: Yes Procedure Operation Date: 05/25/25 07:00 Actual Procedures p Right Total Knee Arthroplasty(Right) - Parveen Sterling MD Surgeon GIANNI Sterling MD [employer] Service Technician [facility] no resident or fellow available Estimated Blood Loss 10 Findings Consistent with Post-Op Diagnosis see operative report Specimens see operative report Drains none Complications none Disposition Accompanied Patient To Recovery: Yes Indications This 84 year old female Description of Procedure The patient was administered a spinal anesthetic and then taken to the operating room where she was given sedation. She was prepped and draped in the usual sterile fashion. Please see Dr. Sterling's operative report for specifics of the procedure. I was present for the entire case from initial patient positioning through final wound closure. Assistance was provided in tissue retraction, hemostasis, trial implant placement, final implant placement, and final wound closure. The patient was taken to the recovery room in satisfactory condition. I attest to the content of the Intraoperative Record and any orders documented therein. Any exceptions are noted below.
[2025-05-25] MEDS ORDERED: VANCOMYCIN CONSULT ACTIVE PRN (09:05)
--- NOTE | 2025-05-25 09:10 | XRay Report ---
XR knee RT 1 or 2V routine CLINICAL HISTORY: S/P R TKA COMPARISON: 05/17/2025 FINDINGS: Right knee prosthesis and visualized portion of the femoral nail show no hardware complica tion. There is expected soft tissue gas. Skin gracie are present. IMPRESSION: Unremarkable postoperative exam. ACT 112: Negative or not required by law. Electronically signed by: Brian Soria M.D. 05/25/2025 9:08 AM
--- NOTE | 2025-05-25 09:24 | Fluoroscopy Report ---
FL fluoroscopy <1hr CLINICAL HISTORY: RT TOTAL KNEE COMPARISON STUDY: None FLUOROSCOPY TIME: 3 seconds FLUOROSCOPY IMAGES: 1 EXPOSURE DOSE: 0.27 mGy FINDINGS: Fluoroscopy was provided for right knee prosthesis. IMPRESSION: Intraoperative fluoroscopy. ACT 112: Negative or not required by law. Electronically signed by: Brian Soria M.D. 05/25/2025 9:23 AM
[2025-05-25] MEDS: VANCOMYCIN HCL 750 MG in SODIUM CHLORIDE 0.9% 250 ML IV STA (09:44)
[2025-05-25] MEDS ORDERED: METOCLOPRAMIDE HCL INJ 5 MG/ML 2 ML VIAL IV PRN (10:19)
[2025-05-25] MEDS ORDERED: POTASSIUM CHLORIDE 10 MEQ TABCR PO PRN (10:19)
[2025-05-25] MEDS ORDERED: MAGNESIUM HYDROXIDE SUSP 30 ML UDC PO PRN (10:19)
[2025-05-25] MEDS ORDERED: ALUMINUM/MAGNESIUM SUSP 30 ML UDC PO PRN (10:19)
[2025-05-25] MEDS ORDERED: NALOXONE HCL 0.4 MG/1 ML VIAL/CARP IV PRN (10:19)
[2025-05-25] MEDS ORDERED: ALBUTEROL HFA 8 GM INHALER INH PRN (10:19)
[2025-05-25] MEDS ORDERED: diphenhydrAMINE 50 MG/ML VIAL IV PRN (10:19)
[2025-05-25] MEDS ORDERED: FUROSEMIDE 40 MG TAB PO PRN (10:19)
[2025-05-25] MEDS ORDERED: ARTIFICIAL TEARS OP PRN (10:28)
--- NOTE | 2025-05-25 10:29 | Anesthesiology Progress Note ---
Date of Service May 25, 2025 Anesthesia Post Procedure Vital Signs Vital Signs: Temp Pulse Pulse Resp BP Pulse Ox O2 Del Method 05/25/25 09:50 63 12 111/55 L 96 Nasal Cannula 05/25/25 09:35 36.4 C L 64 14 104/55 L 96 Nasal Cannula 05/25/25 09:25 70 15 110/53 L 95 Nasal Cannula 05/25/25 09:15 64 18 120/54 L 97 Nasal Cannula 05/25/25 09:05 82 16 107/51 L 97 Oxymask 05/25/25 08:59 36.3 C L 67 16 101/54 L 99 Oxymask 05/25/25 05:55 36.4 C L 57 L 20 139/83 96 Room Air O2 Flow Rate 05/25/25 09:50 2 05/25/25 09:35 2 05/25/25 09:25 2 05/25/25 09:15 2 05/25/25 09:05 7 05/25/25 08:59 7 05/25/25 05:55 Pain Intensity Right Knee: Pain Intensity: 4 Lower Back: Pain Intensity: 6 Transfer of Care Handoff Completed per policy Notes Mental Status: alert / awake / arousable Patient Amnestic to Procedure: Yes Nausea / Vomiting: adequately controlled Pain: adequately controlled Airway Patency, RR, SpO2: stable & adequate BP & HR: stable & adequate Hydration State: stable & adequate Neuraxial Anesthesia: was administered and sensory block is resolving Anesthetic Complications: no major complications apparent and Pt Satisfied with anesthetic care
[2025-05-25 10:52] VITALS: RESP 16
[2025-05-25] MEDS: SODIUM CHLORIDE 0.9% 1,000 ML IV SCH (11:47)
[2025-05-25] MEDS: KETOROLAC TROMETHAMINE 15 MG/ML VIAL IV SCH (11:51)
[2025-05-25] MEDS: ACETAMINOPHEN 500 MG TAB PO SCH (13:37)
[2025-05-25] MEDS: VALSARTAN/SACUBITRIL 26/24MG TAB PO SCH (13:37)
[2025-05-25] MEDS: HYDROmorphone INJ 0.5 MG/0.5 ML SYR IV PRN (13:39)
--- NOTE | 2025-05-25 14:36 | Orthopedic Progress Note ---
Date of Service May 25, 2025 Assessment & Plan Admission and Anticipated Discharge Date Admission Date: May 25, 2025 Orthopedic Progress Note Postop check. She is doing well. Denies chest pain shortness of breath fever chills nausea vomiting or headache. Vital signs are stable she is afebrile. Neurovascular check from spinal is wearing off. Wound dressing clean dry and intact. Is eating and drinking is voiding. At this point in time saline lock IV fluid and continue with appropriate plan per total knee replacement care management pathway. Discharge in a.m. if does well overnight.
[2025-05-25] MEDS: ONDANSETRON INJ 2 MG/ML 2 ML VIAL IV PRN (14:43)
[2025-05-25] MEDS ORDERED: HYDROmorphone INJ 0.5 MG/0.5 ML SYR IV PRN (14:46)
[2025-05-25] MEDS: ASCORBIC ACID 500 MG TAB PO SCH (16:50)
[2025-05-25] MEDS: FERROUS GLUCONATE 324 MG TAB PO SCH (16:50)
[2025-05-25] MEDS: DOCUSATE SODIUM 100 MG CAP PO SCH (20:59)
[2025-05-25] MEDS: SENNA 8.6 MG TAB PO SCH (20:59)
[2025-05-26 03:14] VITALS: O2SAT 92
[2025-05-26 06:16] LABS: Hematocrit (blood only) 31.5 % (37.0-47.0); Hemoglobin 10.7 g/dL (12.0-16.0); Mean Corpuscular Hemoglobin 29.8 pg (25.0-34.0); Mean Corpuscular Volume 87.7 fL (80.0-100.0); Platelet Count 201 K/uL (130-400); RDW Standard Deviation 42.3 fL (36.4-46.3); Red Blood Count 3.59 M/uL (4.20-5.40); White Blood Count 10.62 K/ul (4.8-10.8)
[2025-05-26 06:39] LABS: Anion Gap 9.0 (3-11); Blood Urea Nitrogen 16.0 mg/dl (6-23); Calcium 8.4 mg/dl (8.6-10.3); Carbon Dioxide 23.0 mmol/L (21-32); Chloride 104.0 mmol/L (98-107); Creatinine Clr Calc Pharmacy 40.8 ml/min; Glucose 126.0 mg/dl (70-99(Fasting)); Potassium 4.1 mmol/L (3.5-5.1); Sodium 136.0 mmol/L (136-145)
--- NOTE | 2025-05-26 07:01 | Orthopedic Progress Note ---
Date of Service May 26, 2025 Assessment & Plan Admission and Anticipated Discharge Date Admission Date: May 25, 2025 Orthopedic Progress Note Postop day #1 is doing well status post right total knee replacement. Denies chest pain shortness of breath fever chills nausea vomiting or headache. Vital signs are stable she is afebrile. Neurovascular check from sciatic nerve is normal. Does full ankle pumps can do straight leg raise. Wound dressing clean dry and intact. Calves nontender. A.m. labs are pending. Assessment doing well status post right total knee replacement. A.m. labs pending check those today dressing change later today discharge to home today.
[2025-05-26 07:22] VITALS: BP 108/65; PULSE 65; TEMP 98.2
[2025-05-26] MEDS: MULTIVITAMIN TAB PO SCH (08:19)
[2025-05-26] MEDS: APIXABAN 2.5 MG TAB PO SCH (08:19)
[2025-05-26] MEDS: dexAMETHasone 10 MG in SYRINGE 0 ML IV SCH (08:20)
--- NOTE | 2025-05-26 10:29 | Orthopedic Progress Note ---
Date of Service May 26, 2025 Assessment & Plan (1) Status post right knee replacement: Plan: The patient was educated regarding today's findings. Her dressings were changed. She was seen in conjunction with Dr. Sterling, who also evaluated the patient and assisted with the dressing change. She will leave this in place through the weekend. It can be changed by home health on Saturday as needed for soiling. She may shower, but must keep the right leg dry. Prescriptions for prednisone 10 mg, Eliquis 2.5 mg, and oxycodone 5 mg were sent to her pharmacy. Written discharge instructions were provided. Continue using the knee immobilizer when out of bed today and tomorrow. It can be discontinued entirely on Saturday. Follow-up in the office as scheduled for therapy as well as her postop visit in 2 weeks. Admission and Anticipated Discharge Date Admission Date: May 25, 2025 Subjective This 84-year-old female is seen today in her room. She is 1 day status post right total knee arthroplasty. She is doing well. She is already sitting in her bedside chair. She has finished breakfast. She is working with PT at this time. No chest pain or shortness of breath. No current nausea or vomiting. She feels ready for discharge to home. No other complaints. Review of Systems Review of Systems: Unchanged from yesterday. Physical Exam Physical Exam: General: Well-developed, well-nourished, elderly female, in no acute distress. Sitting in a chair. Alert and oriented. Skin: Warm and dry with good turgor. Postsurgical dressing is in place on the right knee. Upon removal, gracie are intact. Wound edges are well- approximated. No erythema or edema. Scant dried dressing on her most inner dressings. No active bleeding currently. Musculoskeletal: The patient has full terminal extension. She flexes to 70 degrees. Intact motor function to her ankle and toes. Neurologic: Gross sensation is intact across the right leg by soft touch. Results & Data Vital Signs (Past 12 Hours) Vital Signs Temp Pulse Pulse Resp BP Pulse Ox O2 Del Method 05/26/25 07:22 36.8 C 65 16 108/65 92 Room Air 05/26/25 03:13 36.5 C 66 16 114/56 L 92 Room Air Laboratory Results CBC obtained today shows a white count of 10.6. H&H of 10.7 and 31.5. Normal platelets at 201,000. PRP obtained this morning shows normal electrolytes. Normal BUN and creatinine at 16 and 0.78. Glucose this morning is 126.
== END 2025-05-26 11:06 | disposition home health service (06) ==
LOC: ASU 05:18 → 3E 05:18